=== PATIENT | female | born 1940 | race Caucasian/White ===

== ENCOUNTER → 2017-12-08 09:05 | Outpatient (REF) | payer MEDICARE, MEDICAID, SELFPAY ==
[2017-12-08 09:19] LABS: Basophils # 0.1 K/mm3 (0-0.2); Basophils % 1.2 % (0.1-2.0); Eosinophils # 0.3 K/mm3 (0.0-0.4); Eosinophils % 2.1 % (0.1-12.0); Hematocrit 32.6 % (37.0-47.0); Hemoglobin 9.9 g/dL (12.2-16.2); Lymphocytes # 1.9 K/mm3 (0.7-4.5); Lymphocytes % 15.2 K/mm3 (10-50); Mean Corpuscular HGB Conc 30.5 g/dL (31.8-35.4); Mean Corpuscular Hemoglobin 28.8 pg (27.0-31.2); Mean Corpuscular Volume 94.6 fl (81-99); Mean Platelet Volume 7.2 fl (7.4-10.4); Monocytes # 0.6 K/mm3 (0.1-1.0); Monocytes % 4.8 % (1.7-9.3); Neutrophils # 9.5 K/mm3 (1.8-7.8); Neutrophils % 76.8 % (37.0-80.0); Platelet Count 447 K/mm3 (142-424); Red Blood Count 3.45 M/mm3 (4.20-5.40); Red Cell Distribution Width 13.9 % (11.5-17.5); White Blood Count 12.4 K/mm3 (4.8-10.8)
== END ==
LOC: LAB 09:05
PROVIDERS: Visit Provider Family Medicine
DX: D64.9 Anemia, unspecified (principal); E11.65 Type 2 diabetes mellitus with hyperglycemia; E78.5 Hyperlipidemia, unspecified; I10 Essential (primary) hypertension
CPT/HCPCS: 85025

== ENCOUNTER → 2017-12-15 09:35 | Outpatient (CLI) | payer MEDICARE, MEDICAID, SELFPAY ==
--- NOTE | 2017-12-15 09:35 | CT_ITS ---
CT abdomen pelvis wo con CLINICAL INDICATION: ITS.REASON: ANEMIA ORDERING PHYSICIAN: Peter Gutiérrez MD PATIENT AGE: 77 years COMPARISON: None TECHNIQUE: Axial images obtained with sagittal and coronal reformats. All CT scans at the facility use one or more dose reduction, viz: automated exposure control; ma/kV adjustment per patient size (including targeted exams where dose is matched to indication; i.e. head); or iterative reconstruction technique. PROCEDURE: Oral Contrast: None IV Contrast: None . FINDINGS: Lower thoracic images show mild cardiomegaly with coronary artery calcifications and mild thickening of the pericardium posteriorly. The liver, spleen, adrenal glands, and pancreas have an unremarkable unenhanced CT appearance. There is mild motion artifact does obscure fine detail. There is a moderate amount of edema in the inferior aspect of the left breast. There has been prior aortic aneurysm repair with aortoiliac stent graft present. Right internal and external iliac artery stents are present. The AP dimension of the mid abdominal aorta is 3.6 cm. Iliac arteries are slightly prominent at 2.5 cm on the right and 2 cm on the left. This is dimension stents. There is a moderate amount retained colonic feces. The cecum lies in the central aspect of the pelvis as does the appendix. No evidence of appendicitis. There is diverticulosis of the descending and sigmoid colon. There is mild rectal fecal impaction. There is some minimal stranding of the pericolic fat in the left lower quadrant. This is nonspecific and could be seen with some mild diverticulitis. No renal calculi or ureteral calculi. There is a small exophytic left renal cyst laterally and inferiorly at 2 cm. Small exophytic cyst projects off the lateral aspect of the right kidney at 1 cm. Calcification is present within the right aspect the urinary bladder consistent with bladder stone at 13 mm The uterus is canted toward the left with coarse calcifications consistent with fibroid involvement measuring up to 4.5 cm. This was present on previous ultrasound of 07/28/2010. Degenerative changes thoracic and lumbar spine. IMPRESSION: 1. Constipation with diverticulosis coli and rectal fecal impaction. 2. Grade minimal stranding of the fat in the left lower quadrant adjacent to the sigmoid colon which could be due to some mild diverticulitis. This however is questionable. Please correlate with clinical findings. 3. 4 cm fibroid. 4. 13 mm bladder stone on the right 5. 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
== END ==
PROVIDERS: Family Provider Family Medicine; PCP Family Medicine; Visit Provider Family Medicine
DX: D64.9 Anemia, unspecified (principal)
CPT/HCPCS: 74176

== ENCOUNTER → 2018-01-16 10:25 | Outpatient (CLI) | payer MEDICARE, MEDICAID, SELFPAY ==
--- NOTE | 2018-01-16 10:26 | MM_ITS ---
MM Dig screening mamm BI w/CAD ORDERING PHYSICIAN : Danny Donaldson MD PATIENT AGE: 78 years GENDER: Female HISTORY. Routine screening Patient with multiple left breast resected 2004, 2009, 2013. My available records showed the first breast cancer in 2004 with resulting radiation changes left breast resulting in a diffuse extremely dense anterior breast. This diffuse density of these changes limits mammography particularly anteriorly at these large pendulous breast . COMPARISON: Multiple previous studies most recent 12-02 and 11/12/2016 bilateral mammograms. INDICATION: ITS.REASON: screening TECHNIQUE: Standard CC and MLO images were obtained. R2 CAD reviewed. FINDINGS: RIGHT BREAST:No new findings in the right. Follow-up in one year. Densely calcified stable benign nodular density seen superior right breast again noted. Otherwise generalized fatty replacement on right LEFT BREAST :Again the extensive postradiation changes are seen throughout the anterior breast with long-standing markedly diffuse thickening and increased density skin and soft tissues throughout anterior breast There appears to be a New area of ill-defined focal density at the deep left breast. Labeled Z. With slightly radiating margins. This entire area measures possibly up up to 4 cm AP. 3.6 cm height including its density from its radiating margins. . This area raises Significant concern for another recurrent breast lesion- unless there is interval surgery at left breast since October 2016... Understand this patient is difficult to position with mammography. Thus Suggest survey the left breast and this specific area with ultrasound first... And if no definitive feature on ultrasound then proceeded with spot views will be required There is also again noted to be a a long-standing elongated nodular density labeled Y was fairly stable from follow-up from the 2014, 2015 and 2016 studies. This is more difficult to visualize today but I believe is separate as seen on today's MLO view and one of the cc views it may be questionably incrementally wider measuring just over 8 mm The benign areas of calcification otherwise seen appear relatively stable and can be followed. IMPRESSION: LEFT BREAST 1. New area of regional density with suggestion of radiating irregular margins now seen fairly deep left breast just medial to mid axis.. This area is labeled Z. Entire area of density including radiating margins it may measure up to 4 cm AP X 3.6 cm height .Significant change since last year & Concerning for significant new lesion/neoplasm if unless this patient has had interval surgery in this region.. No history of such stated by technologist. However Note history of multiple cancers left breast & extensive radiation changes yielding marked increased density & thickening of the skin and soft tissues throughout the anterior breast.-Limiting mammography to the anterior breast ... Suggest ultrasound initially to survey this region of concern labeled Z.,. If no clearly definitive focus identified with ultrasound,, then any mammogram Spot views would be warranted to further evaluate this area in this difficult to position patient.. 2. The elongated nodule labeled Y appears separate & appears fairly stable 2016 but will be encountered in this same general region... This area labeled Y will likely be more discrete nodule on ultrasound (area Y may serve as a reference point ,as it appears resides more towards 6:00 left breast, & appears reside inferior & medial to the area labeled Z) RIGHT BREAST.:. Stable. No areas of concern follow-up in one year BI-RADS Category: 0 Need Additional Imaging Evaluaiton RECOMMENDED FOLLOW-UP: IMM - IMMEDIATE FOLLOW-UP RECOMMENDED Ultrasound
--- NOTE | 2018-01-16 14:19 | MM_ITS ---
MM Dig screening mamm BI w/CAD ORDERING PHYSICIAN : Danny Donaldson MD PATIENT AGE: 78 years GENDER: Female HISTORY. Routine screening Patient with multiple left breast resected 2004, 2009, 2013. My available records showed the first breast cancer in 2004 with resulting radiation changes left breast resulting in a diffuse extremely dense anterior breast. This diffuse density of these changes limits mammography particularly anteriorly at these large pendulous breast . COMPARISON: Multiple previous studies most recent 12-02 and 11/12/2016 bilateral mammograms. INDICATION: ITS.REASON: SCREENING TECHNIQUE: Standard CC and MLO images were obtained. R2 CAD reviewed. FINDINGS: RIGHT BREAST:No new findings in the right. Follow-up in one year. Densely calcified stable benign nodular density seen superior right breast again noted. Otherwise generalized fatty replacement on right LEFT BREAST :Again the extensive postradiation changes are seen throughout the anterior breast with long-standing markedly diffuse thickening and increased density skin and soft tissues throughout anterior breast There appears to be a New area of ill-defined focal density at the deep left breast. Labeled Z. With slightly radiating margins. This entire area measures possibly up up to 4 cm AP. 3.6 cm height including its density from its radiating margins. . This area raises concern for another recurrent breast lesion- unless there is interval surgery at left breast since October 2016... Understand this patient is difficult to position with mammography. Thus Suggest survey the left breast and this specific area with ultrasound first... And if no definitive feature on ultrasound then proceeded with spot views will be required There is also again noted to be a a long-standing elongated nodular density labeled Y was fairly stable from follow-up from the 2014, 2015 and 2016 studies. This is more difficult to visualize today but I believe is separate as seen on today's MLO view and one of the cc views it may be questionably incrementally wider measuring just over 8 mm The benign areas of calcification otherwise seen appear relatively stable and can be followed. Note this report was completed & finalized in the dictation system near 2 weeks ago, but now shows back up on my draft list to be re-signed. Apparently there was a problem with the order editor in the [employer] system IMPRESSION: LEFT BREAST: 1. New area of regional density with suggestion of radiating irregular margins now seen fairly deep left breast just medial to mid axis.. This area is labeled Z. Entire area of density including radiating margins it may measure up to 4 cm AP X 3.6 cm height .Significant change since last year & Concerning for significant new lesion/neoplasm if unless this patient has had interval surgery in this region.. No history of such stated by technologist. However Note history of multiple cancers left breast & extensive radiation changes yielding marked increased density & thickening of the skin and soft tissues throughout the anterior breast.-Limiting mammography to the anterior breast ... Suggest ultrasound initially to survey this region of concern labeled Z.,. If no clearly definitive focus identified with ultrasound,, then any mammogram Spot views would be warranted to further evaluate this area in this difficult to position patient.. 2. Otherwise at left breast the elongated nodule labeled Y appears separate & appears fairly stable 2016 but will be encountered in this same general region... This area labeled Y will likely be more discrete nodule on ultrasound & appears to be stable feature (area Y may serve as a reference point , it appears resides more towards 6:00 left
== END ==
PROVIDERS: Family Provider Family Medicine; PCP Family Medicine; Visit Provider Surgery
DX: Z12.31 Encounter for screening mammogram for malignant neoplasm of breast (principal)
CPT/HCPCS: 77067

== ENCOUNTER → 2018-01-27 13:02 | Outpatient (CLI) | payer MEDICARE, MEDICAID, SELFPAY ==
--- NOTE | 2018-01-27 13:05 | MM_ITS ---
US breast LT complete, MM Dig mamm DX unilat LT CAD INDICATION: Abnormal mammogram, history of left breast cancer and radiation changes ORDERING PHYSICIAN: Inocente Darling MD PATIENT AGE: 78 years COMPARISON: 01/16/2018, 11/12/2016 and 1226 and 6 TECHNIQUE: Spot compression views performed along with left breast ultrasound FINDINGS: The images are extremely limited due to patient's inability to be properly positioned. Extensive postradiation changes are once again noted in the antra aspect of the left breast with long-standing thickening of the anterior aspect of the left breast. Limited spot compression views show persistent asymmetric density in the central aspect of the left breast posteriorly. This is barely perceptible on the images and could even be due to asymmetric tissue. Benign-appearing calcifications are once again noted. Left breast ultrasound: There is diffuse skin thickening and subcutaneous edema. In the medial aspect of the left breast there is a 9 x 6 mm area of decreased echogenicity with posterior acoustical shadowing have an a suspicious appearance by ultrasound. Biopsy recommended. IMPRESSION: Asymmetric density persists on the mammogram. Ultrasound shows a suspicious hypoechoic nodule with posterior acoustical shadowing at 9 x 6 mm in the medial aspect of the left breast BI-RADS Category: 4 Suspicious Abnormality-Biopsy Considered RECOMMENDED FOLLOW-UP: BIO - BIOPSY RECOMMENDED (A letter has been sent to the patient regarding results of the study.)
== END ==
PROVIDERS: Family Provider Family Medicine; PCP Family Medicine; Visit Provider Surgery
DX: N63.20 Unspecified lump in the left breast, unspecified quadrant (principal); R92.8 Other abnormal and inconclusive findings on diagnostic imaging of breast
CPT/HCPCS: 76641; 77065

== ENCOUNTER → 2018-02-04 03:25 | Outpatient (REF) | payer MEDICARE, MEDICAID, SELFPAY ==
[2018-02-04 04:25] LABS: Microscopic, Urine URINE MICROSCOPIC (MICROSCOPIC)
[2018-02-04 04:33] LABS: Basophils % 0.2 % (0.1-2.0); Eosinophils # 0.1 K/mm3 (0.0-0.4); Eosinophils % 0.3 % (0.1-12.0); Hematocrit 33.6 % (37.0-47.0); Hemoglobin 10.9 g/dL (12.2-16.2); Lymphocytes % 5.3 K/mm3 (10-50); Mean Corpuscular HGB Conc 32.5 g/dL (31.8-35.4); Mean Corpuscular Hemoglobin 29.9 pg (27.0-31.2); Mean Corpuscular Volume 92.1 fl (81-99); Mean Platelet Volume 7.9 fl (7.4-10.4); Monocytes # 1.1 K/mm3 (0.1-1.0); Monocytes % 5.6 % (1.7-9.3); Neutrophils # 16.7 K/mm3 (1.8-7.8); Neutrophils % 88.5 % (37.0-80.0); Platelet Count 286 K/mm3 (142-424); Red Blood Count 3.65 M/mm3 (4.20-5.40); Red Cell Distribution Width 13.3 % (11.5-17.5); White Blood Count 18.8 K/mm3 (4.8-10.8)
[2018-02-04 04:35] LABS: MANUAL DIFFERENTIAL MANUAL DIFFERENTIAL (MANUAL DIFF)
[2018-02-04 04:39] LABS: Appearance,Urine CLOUDY (Clear); Bilirubin,Urine Negative (Negative); Blood, Urine 1+ (Negative); Color,Urine YELLOW (Yellow); Glucose,Urine (UA) Negative (Negative); Ketones,Urine TRACE (Negative); Leukocyte Esterase,Urine 1+ (Negative); Nitrate,Urine Negative (Negative); PH,Urine 6.5 (5.0-8.5); Protein,Urine 2+ (Negative); Specific Gravity, Urine 1.025 (1.005-1.030)
[2018-02-04 05:18] LABS: Bacteria,Urine 4+ /lpf; Squamous Epithelial Cell,Urine Occasional #/hpf (0-5)
[2018-02-04 05:24] LABS: Lymphocytes % 13 % (10-50); Monocytes % 5 % (2-9); Neutrophils % 79 % (42-76); Platelet Estimate Normal; RBC Morphology Normal; Total Cells Counted 100
[2018-02-04 07:20] LABS: Anion Gap 7.3 mEq/L (5-15); Blood Urea Nitrogen 20 mg/dL (7-18); Calcium 9.7 mg/dL (8.5-10.1); Carbon Dioxide 37 mmol/L (21.0-32.0); Chloride 95 mmol/L (98-107); Creatinine,Serum 0.57 mg/dL (0.55-1.02); Estimated Glomerular Filt Rate 103 ml/min (>60); GFR (African American) 124 ML/MIN (>60); Glucose 171 mg/dL (74-106); Potassium 4.3 mmoL/L (3.5-5.1); Sodium 135 mmol/L (136-145)
== END ==
LOC: LAB 03:25
PROVIDERS: Visit Provider Family Medicine
DX: R53.83 Other fatigue (principal); D64.9 Anemia, unspecified
CPT/HCPCS: 80048; 81001; 85007; 85025; 87086

== ENCOUNTER 2018-02-05 11:27 | Inpatient (IN) ==
--- NOTE | 2018-02-05 12:09 | Emergency Department Note ---
ED Disposition Clinical Impression: Cystitis without hematuria RLL pneumonia Qualifiers: Pneumonia type: due to unspecified organism Qualified Code(s): J18.1 - Lobar pneumonia, unspecified organism Disposition: Admitted As Inpatient Condition on Discharge: Fair Referrals: Peter Gutiérrez MD [Primary Care Provider] - Time of Disposition: 13:45 - Critical Care Critical Care Time: No Attestation: On 02/05/18, the high probability of a clinically significant, sudden or life threatening deterioration of the following system(s) required my full and direct attention, intervention and personal management. The time I documented below is in addition to time spent performing reported procedures but includes the following listed in this critical care notation. Medical Decision Making - Medical Records Medical records reviewed: Yes: I reviewed the patient's medical records. - Elvis Inquiry Pt receiving controlled substance: No Elvis was queried for this patient: No Vital Signs: 02/05/18 11:28 02/05/18 13:28 Temperature 97.6 F 98.8 F Temperature Source Oral Oral Pulse Rate [Left Brachial] 86 89 Respiratory Rate 22 22 Blood Pressure [Left Arm] 98/58 100/56 Blood Pressure Mean [Left Arm] 71 70 Blood Pressure Source [Left Arm] Automatic Cuff Automatic Cuff Blood Pressure Position [Left Arm] Supine Sitting 02 Sat by Pulse Oximetry 90 L 95 Oxygen Delivery Method Nasal Cannula Nasal Cannula Oxygen Flow Rate (LPM) 2 2 - Lab Data Lab results reviewed: Yes: I reviewed the patient's lab results. Lab Results 02/05/18 12:10: Specimen Source Rt radial, O2 % 36, ABG pH 7.35, ABG pCO2 70.8 H , ABG pO2 74.4 L, ABG HCO3 37.8 H, ABG Total CO2 39.9 H, ABG O2 Saturation 93, ABG Base Excess 12.1 H, Tom Test Acceptable 02/05/18 12:30: WBC 19.5 H, RBC 3.59 L, Hgb 10.5 L, Hct 33.1 L, MCV 92.2, MCH 29.3, MCHC 31.8, RDW 13.2, Plt Count 334, MPV 7.8, Neut % (Auto) 87.9 H, Lymph % (Auto) 6.7 L, [place] % (Auto) 5.0, Eos % (Auto) 0.1, Baso % (Auto) 0.3, Neut # ( Auto) 17.2 H, Lymph # (Auto) 1.3, [place] # (Auto) 1.0, Eos # (Auto) 0.0, Baso # ( Auto) 0.1, Total Counted 100, Neutrophils % (Manual) 85 H, Band Neutrophils % 3.0, Lymphocytes % (Manual) 5 L, Monocytes % (Manual) 7, Platelet Estimate Normal, RBC Morphology Normal 02/05/18 12:30: PT 10.8, INR 1.05 02/05/18 12:30: Sodium 126 L, Potassium 4.0, Chloride 91 L, Carbon Dioxide 37 H , Anion Gap 2.0 L, BUN 25 H, Creatinine 0.90 D, Estimated Creat Clear 50, Estimated GFR 61, Est GFR ( Amer) 73 D, Glucose 180 H, Calcium 9.8, Total Bilirubin 0.3, AST 8 L, ALT 11 L, Alkaline Phosphatase 124 H, Total Creatine Kinase 17 L, CK-MB (CK-2) 0.5, CK-MB (CK-2) Rel Index 2.9, Troponin I 0.08 H, Total Protein 7.0, Albumin 2.2 L, Globulin 4.8 H, Albumin/Globulin Ratio 0.5 L 02/05/18 12:30: Lactate 1.8 02/05/18 13:00: Urine Color Yellow, Urine Appearance Cloudy, Urine pH 6.5, Ur Specific [place] 1.025, Urine Protein 1+, Urine Glucose (UA) Negative, Urine Ketones Negative, Urine Blood 1+, Urine Nitrate Negative, Urine Bilirubin Negative, Urine Urobilinogen 1.0, Ur Leukocyte Esterase Trace, Urine RBC 3-5, Urine WBC 10-20, Ur Squamous Epith Cells 5-10, Urine Bacteria 4+ Result diagrams: 02/05/18 12:30 02/05/18 12:30 Orders (Tests/Meds): ED MEDICATIONS Generic Name Dose Route Start Last Admin Trade Name Freq PRN Reason Stop Dose Admin Piperacillin Sod/Tazobactam 100 mls @ 200 mls/hr 02/05/18 13:45 Sod 3.375 gm/ Sodium Chloride IV 02/19/18 13:44 Q8H [facility] Protocol Vancomycin HCl 1,000 mg/ 250 mls @ 125 mls/hr 02/05/18 13:35 Sodium Chloride IV 02/05/18 15:34 ONCE ONE Levofloxacin/Dextrose 500 mg in 100 mls @ 100 mls/hr 02/05/18 13:45 Levaquin 500mg/100ml Premix IV 02/19/18 13:44 Q24H [facility] Protocol ORDERS Category Date Time Status Urinalysis and Microscopic Stat Lab 02/05/18 13:22 Ordered Blood Culture Stat Micro 02/05/18 12:30 Received Urine Culture Stat Micro 02/05/18 13:00 Received EKG Request [ECG Request by /Ericka] Stat Y 02/05/18 13:31 Ordered - Radiology Data #1 Image Reviewed: Yes I reviewed the patient's radiology results, Yes I reviewed the patient's radiology image RLL pneumoonia General Adult HPI - General Chief complaint: Shortness of Breath/Dyspnea Stated complaint: SOA and poor intake Time Seen by Provider: 02/05/18 12:00 Mode of Arrival: EMS Limitations: Altered Mental Status Description of Symptoms (Recalled from ER Triage Doc. by RN): Pt's family states that her speech sounds different, slower and more stammering. Pt's has had poor intake of food over the last few days and that she had complained of SOA prior to coming in. Pt states that she feels a little SOA due to her passages. - History of Present Illness HPI narrative: Patient sent from [facility] at the request of family she complains of shortness of breath and the family states that her voice is changed over the last [address] Cueva was called and had blood work and urinalysis performed and on Tuesday she was started on antibiotic today the family felt she was more incoherent and had her brought to the emergency room for further evaluation in the emergency room her blood pressure is 98/58 she has a history of having had an abdominal aortic aneurysm repair and also repair of iliac aneurysms she has also has history of diabetes COPD and congestive heart failure she has been on nebulizers and inhalers at temp is currently 97.6 today and she is on home O2 at 2 L/min 24 7 Onset (ago): day(s) Location: chest - Related Data Home Medications Medication Instructions Recorded Confirmed Aspirin [Aspirin 81mg chewable 81 mg PO DAILY 02/05/18 02/05/18 tab] Calcium Carbonate/Vitamin D3 1 each PO BID 02/05/18 02/05/18 [Oyster Shell 250 mg + Vit D Tb] Clopidogrel Bisulfate [Plavix 75mg 75 mg PO DAILY 02/05/18 02/05/18 Tab] Digoxin 0.125 mg PO DAILY 02/05/18 02/05/18 Enalapril Maleate 2.5 mg PO DAILY 02/05/18 02/05/18 Ferrous Sulfate [Ferrous Sulfate 325 mg PO DAILY 02/05/18 02/05/18 325mg Tablet] Fluticasone Propionate [Flovent 50 mcg IH DAILY 02/05/18 02/05/18 Diskus] Furosemide [Furosemide 40MG tAB] 40 mg PO DAILY 02/05/18 02/05/18 Gabapentin [Gabapentin 100mg Cap] 100 mg PO TID 02/05/18 02/05/18 Lactulose [Lactulose 10gm/15ml 20 mg PO DAILY PRN 02/05/18 02/05/18 Oral Soln] Metformin HCl [Metformin 500mg 500 mg PO BID 02/05/18 02/05/18 Tablet] Omeprazole [Omeprazole 20mg 20 mg PO HS 02/05/18 02/05/18 Capsule] Potassium Chloride [Micro-K 10mEq 10 meq PO DAILY 02/05/18 02/05/18 cap] Pravastatin Sodium [Pravachol] 20 mg PO HS 02/05/18 02/05/18 Sennosides [Senna] 8.6 mg PO BID 02/05/18 02/05/18 Sulfamethoxazole/Trimethoprim 1 each PO BID 02/05/18 02/05/18 [Bactrim DS tablet] Tramadol HCl [Ultram Take Home 50 mg PO BID 02/05/18 02/05/18 Pack 50mg (10)] Ubidecarenone [Coenzyme Q10] 100 mg PO DAILY 02/05/18 02/05/18 predniSONE [Deltasone 1mg tablet] 1 mg PO QODHS 02/05/18 02/05/18 risperiDONE [Risperdal 1mg Tablet] 1 mg PO BID 02/05/18 02/05/18 Allergies Allergy/AdvReac Type Severity Reaction Status Date / Time NKA - NO KNOWN ALLERGIES Allergy Unknown Uncoded 06/07/17 15:21 [facility] History I have reviewed the patient's past medical history: Yes Medical History: Reports:: Diabetes Mellitus Type 2 - Social History Alcohol Intake: never ROS Obtained: Yes All systems reviewed & no additional complaints - Constitutional Constitutional: Reports system reviewed and no additional complaints, except as docu, Reports as per HPI - Cardiovascular Cardiovascular: Reports system reviewed and no additional complaints, except as docu, Reports as per HPI - Respiratory Respiratory: Yes system reviewed and no additional complaints, except as docu, Yes as per HPI Physical Exam - General General appearance: alert, in no apparent distress - Head Head exam: atraumatic - Eye Eye exam: Present: normal appearance - ENT ENT exam: Present: normal exam - Neck Neck exam: Present: normal inspection - Chest Chest inspection: Present: normal inspection - Respiratory Respiratory exam: Present: other (Patient has crackles in the left lung but not on the right) - Cardiovascular Cardiovascular exam: Present: regular rate, normal rhythm - Abdominal Exam Abdominal exam: Present: soft - Neurological Exam Neurological exam: Present: alert, oriented X3, other (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
[2018-02-05 12:49] LABS: Basophils # 0.1 K/mm3 (0-0.2); Basophils % 0.3 % (0.1-2.0); Eosinophils % 0.1 % (0.1-12.0); Hematocrit 33.1 % (37.0-47.0); Hemoglobin 10.5 g/dL (12.2-16.2); Lymphocytes # 1.3 K/mm3 (0.7-4.5); Lymphocytes % 6.7 K/mm3 (10-50); Mean Corpuscular HGB Conc 31.8 g/dL (31.8-35.4); Mean Corpuscular Hemoglobin 29.3 pg (27.0-31.2); Mean Corpuscular Volume 92.2 fl (81-99); Mean Platelet Volume 7.8 fl (7.4-10.4); Neutrophils # 17.2 K/mm3 (1.8-7.8); Neutrophils % 87.9 % (37.0-80.0); Platelet Count 334 K/mm3 (142-424); Red Blood Count 3.59 M/mm3 (4.20-5.40); Red Cell Distribution Width 13.2 % (11.5-17.5); White Blood Count 19.5 K/mm3 (4.8-10.8)
[2018-02-05 12:53] LABS: ABG Base Excess 12.1 mmol/L (-2.4-2.3); ABG HCO3 37.8 mmhg (22.0-26.0); ABG Oxygen Saturation 93 % (90-100); ABG PH 7.35 mmol/L (7.35-7.45); ABG PO2 74.4 mmhg (80-100); ABG TCO2 39.9 mmhg (23-27)
[2018-02-05 12:55] LABS: INR 1.05 (0.9-1.1); Prothrombin Time 10.8 seconds (9.4-11.8)
[2018-02-05 12:56] LABS: ABG PCO2 70.8 mmhg (35.0-45.0); Allen's Test Acceptable; Oxygen 36 %
[2018-02-05 13:05] LABS: Lymphocytes % 5 % (10-50); Monocytes % 7 % (2-9); Neutrophils % 85 % (42-76); RBC Morphology Normal; Total Cells Counted 100
[2018-02-05 13:06] LABS: Microscopic, Urine URINE MICROSCOPIC (MICROSCOPIC)
[2018-02-05 13:08] LABS: Appearance,Urine CLOUDY (Clear); Bilirubin,Urine Negative (Negative); Blood, Urine 1+ (Negative); Color,Urine YELLOW (Yellow); Glucose,Urine (UA) Negative (Negative); Ketones,Urine Negative (Negative); Leukocyte Esterase,Urine TRACE (Negative); PH,Urine 6.5 (5.0-8.5); Protein,Urine 1+ (Negative); Specific Gravity, Urine 1.025 (1.005-1.030)
[2018-02-05 13:15] LABS: Albumin Level 2.2 gm/dL (3.4-5.0); Albumin/Globulin Ratio 0.5 (1.1-1.8); Bilirubin,Total 0.3 mg/dL (0.2-1.0); Calcium 9.8 mg/dL (8.5-10.1); Globulin 4.8 gm/dl (1.3-3.2)
[2018-02-05 13:18] LABS: Bacteria,Urine 4+ /lpf
--- NOTE | 2018-02-05 14:40 | Pharmacy Consult Notes ---
[facility] Pharmacy VTE Monitoring - Patient Demographics Admission date: 02/05/18 Report Date: 02/05/18 Time: 14:40 Allergies/Adverse Reactions: Patient Allergies No Known Allergies Allergy (Unverified 02/05/18 13:57) Height: 1.68 m Weight: 68.096 kg Patient Problems: Current Active Problems RLL pneumonia (Acute) Cystitis without hematuria (Acute) - VTE Risk Labs: VTE Related Lab Results Hgb 10.5 g/dL (12.2-16.2) L 02/05/18 12:30 Hct 33.1 % (37.0-47.0) L 02/05/18 12:30 Plt Count 334 K/mm3 (142-424) 02/05/18 12:30 PT 10.8 seconds (9.4-11.8) 02/05/18 12:30 INR 1.05 (0.9-1.1) 02/05/18 12:30 BUN 25 mg/dL (7-18) H 02/05/18 12:30 Creatinine 0.90 mg/dL (0.55-1.02) D 02/05/18 12:30 Estimated Creat Clear 50 mL/min (0-300) 02/05/18 12:30 - Prophylaxis Types of VTE Prophylaxis: TEDS Knee High (SAM HOSE ORDER PLACED)
[2018-02-05 15:34] LABS: ABG Base Excess 9.1 mmol/L (-2.4-2.3); ABG HCO3 34.4 mmhg (22.0-26.0); ABG Oxygen Saturation 91 % (90-100); ABG PH 7.37 mmol/L (7.35-7.45); ABG PO2 63.3 mmhg (80-100); ABG TCO2 36.2 mmhg (23-27)
[2018-02-05 15:35] LABS: Allen's Test Acceptable; Oxygen 36 %
[2018-02-05 15:39] LABS: ABG PCO2 60.4 mmhg (35.0-45.0)
--- NOTE | 2018-02-06 08:16 | History & Physical Report ---
*Admission Date: 02/05/18 *Chief complaint: Shortness of breath *History of present illness: Ms. Leger is a 77-year-old female who is a resident of [facility] who presented to [facility] with noted shortness of breath and lethargy. Patient states that she slept for 3 days and did not eat or drink much during the study of time. She states that she has been has been sick for about 4-5 days. She denies cough, chest pain and fever. Prior to admission she had been started on an antibiotic and CBC and BMP were obtained with unknown results. When family was visiting with her yesterday they requested that she brought to the emergency room for evaluation. Patient has an extensive medical history to include diabetes mellitus type 2, breast cancer with partial left mastectomy, anemia, agoraphobia, COPD, aortic and bilateral iliac artery aneurysms with repair, and suspected non-small cell lung cancer of the left upper lobe with treatment, and CAD with stenting of the left anterior descending. With evaluation in the emergency room she was felt to have a right pneumonia with elevated white blood cell count and was admitted. She was started on Vapotherm with O2 percent increased to 40. Patient states she has not been coughing and does not want to cough. She does not want breathing treatments. She states this puts fluid in her lungs and makes it so she cannot breathe. She does feel better this a.m. denies chest pain but has shortness of breath with any activity. She has been eating a little but drinks fluids well. Patient was noted to be in atrial fibrillation in the ER and has remained as such on the monitor. She has a controlled ventricular response. She has been started on IV Levaquin and piperacillin [facility] History Medical History: Reports:: Aneurysm, Atherosclerotic Heart Disease, Atrial Fibrillation, Cancer, Congestive Heart Failure, Chronic Obstructive Pulmonary Disease (COPD), Coronary Artery Disease, Depression, Diabetes Mellitus Type 2, Gastrointestinal Bleed, Home Oxygen, Hyperlipidemia, Hypertension, Lung Disease , Peripheral Artery Disease Other Medical History: Reports: Anemia, Arthritis, Chemotherapy Laterality Cases: Left: Mastectomy (Partial) Other Surgeries: Yes: Cancer Surgery (left lung), Cardiac Catheterization, Coronary Stent Comment: Left partial mastectomy 12/22/2016; D&C; endovascular repair of AAA and bilateral iliac aneurysms 06/08/2017 - *Social History Smoking Status: Former smoker Alcohol Intake: never Occupational Status: disabled Housing: half-way - Psychiatric History Expresses thoughts of harming self/others: None Suicide Plan Description: No Plan Pschychiatric History:: Reports:: Anxiety, Depression *Family Hx:: Cancer Review of Systems - Constitutional Reports daytime sleepiness, Reports weakness, Denies anorexia, Denies chills - ENT Reports nasal congestion - *Cardiovascular Reports shortness of breath, Denies chest pain - *Respiratory Reports shortness of breath, Denies chest congestion, Denies cough - *Gastrointestinal Reports constipation, Reports incontinent of stools, Denies abdominal pain, Denies nausea, Denies vomiting - *Genitourinary Reports urinary incontinence - *Musculoskeletal Reports limited joint movement, Reports muscle weakness Comments: Has not walked since her aneurysm repair. She has had difficulty with moving her legs which is worse on the right. She has not been out of bed and months. - *Neurologic Reports abnormal speech, Reports weakness - Psychiatric Reports anxiety, Reports depression Meds Home Medications Medication Instructions Recorded Confirmed Type Aspirin [Aspirin 81mg chewable 81 mg PO DAILY 02/05/18 02/05/18 History tab] Calcium Carbonate/Vitamin D3 1 each PO BID 02/05/18 02/05/18 History [Oyster Shell 250 mg + Vit D Tb] Clopidogrel Bisulfate [Plavix 75mg 75 mg PO DAILY 02/05/18 02/05/18 History Tab] Digoxin 0.125 mg PO DAILY 02/05/18 02/05/18 History Enalapril Maleate 2.5 mg PO DAILY 02/05/18 02/05/18 History Ferrous Sulfate [Ferrous Sulfate 325 mg PO DAILY 02/05/18 02/05/18 History 325mg Tablet] Furosemide [Furosemide 40MG tAB] 40 mg PO DAILY 02/05/18 02/05/18 History Gabapentin [Gabapentin 100mg Cap] 100 mg PO TID 02/05/18 02/05/18 History Gluc Helms/MSM/Magnesium/Vit C 1 each PO DAILY 02/05/18 02/05/18 History [Glucosamine Complex-MSM Cap] Lactulose [Lactulose 10gm/15ml 20 gm PO DAILYP PRN 02/05/18 02/05/18 History Oral Soln] Metformin HCl [Metformin 500mg 500 mg PO BID 02/05/18 02/05/18 History Tablet] Multivit,Iron,Min 5/Folic Acid 1 each PO DAILY 02/05/18 02/05/18 History [Strovite Forte Caplet] Omeprazole [Omeprazole 20mg 20 mg PO HS 02/05/18 02/05/18 History Capsule] Potassium Chloride [Micro-K 10mEq 10 meq PO DAILY 02/05/18 02/05/18 History cap] Pravastatin Sodium [Pravachol] 20 mg PO HS 02/05/18 02/05/18 History Sennosides [Senna] 8.6 mg PO BID 02/05/18 02/05/18 History Sodium Chloride [Saline Nasal 1 spray NS TID 02/05/18 02/05/18 History [place]] Sulfamethoxazole/Trimethoprim 1 each PO BID 02/05/18 02/05/18 History [Bactrim DS tablet] Tramadol HCl [Ultram] 50 mg PO BID 02/05/18 02/05/18 History Ubidecarenone [Coenzyme Q10] 100 mg PO DAILY 02/05/18 02/05/18 History predniSONE [Deltasone 1mg tablet] 1 mg PO QODHS 02/05/18 02/05/18 History risperiDONE [Risperdal 1mg Tablet] 1 mg PO BID 02/05/18 02/05/18 History Anastrozole 1 mg PO DAILY 02/06/18 02/06/18 History Fluticasone Propionate [Flonase 1 spr NS BID 02/06/18 02/06/18 History 50mcg nasal spray 16gm] Allergies Allergy/AdvReac Type Severity Reaction Status Date / Time No Known Allergies Allergy Unverified 02/05/18 13:57 Exam Vital signs and Labs for Last 24 Hours: Temp Pulse Resp BP Pulse Ox 98.5 F 100 H 22 112/56 95 02/06/18 04:00 02/06/18 04:48 02/06/18 04:00 02/06/18 04:00 02/06/18 06:20 Laboratory Results - last 24 hr 02/05/18 12:10: Specimen Source Rt radial, O2 % 36, ABG pH 7.35, ABG pCO2 70.8 H , ABG pO2 74.4 L, ABG HCO3 37.8 H, ABG Total CO2 39.9 H, ABG O2 Saturation 93, ABG Base Excess 12.1 H, Tom Test Acceptable 02/05/18 12:30: WBC 19.5 H, RBC 3.59 L, Hgb 10.5 L, Hct 33.1 L, MCV 92.2, MCH 29.3, MCHC 31.8, RDW 13.2, Plt Count 334, MPV 7.8, Neut % (Auto) 87.9 H, Lymph % (Auto) 6.7 L, [place] % (Auto) 5.0, Eos % (Auto) 0.1, Baso % (Auto) 0.3, Neut # ( Auto) 17.2 H, Lymph # (Auto) 1.3, [place] # (Auto) 1.0, Eos # (Auto) 0.0, Baso # ( Auto) 0.1, Total Counted 100, Neutrophils % (Manual) 85 H, Band Neutrophils % 3.0, Lymphocytes % (Manual) 5 L, Monocytes % (Manual) 7, Platelet Estimate Normal, RBC Morphology Normal 02/05/18 12:30: PT 10.8, INR 1.05 02/05/18 12:30: Sodium 126 L, Potassium 4.0, Chloride 91 L, Carbon Dioxide 37 H , Anion Gap 2.0 L, BUN 25 H, Creatinine 0.90 D, Estimated Creat Clear 50, Estimated GFR 61, Est GFR ( Amer) 73 D, Glucose 180 H, Calcium 9.8, Total Bilirubin 0.3, AST 8 L, ALT 11 L, Alkaline Phosphatase 124 H, Total Creatine Kinase 17 L, CK-MB (CK-2) 0.5, CK-MB (CK-2) Rel Index 2.9, Troponin I 0.08 H, Total Protein 7.0, Albumin 2.2 L, Globulin 4.8 H, Albumin/Globulin Ratio 0.5 L 02/05/18 12:30: Lactate 1.8 02/05/18 13:00: Urine Color Yellow, Urine Appearance Cloudy, Urine pH 6.5, Ur Specific [place] 1.025, Urine Protein 1+, Urine Glucose (UA) Negative, Urine Ketones Negative, Urine Blood 1+, Urine Nitrate Negative, Urine Bilirubin Negative, Urine Urobilinogen 1.0, Ur Leukocyte Esterase Trace, Urine RBC 3-5, Urine WBC 10-20, Ur Squamous Epith Cells 5-10, Urine Bacteria 4+ 02/05/18 15:23: Specimen Source Rt radial, O2 % 36, ABG pH 7.37, ABG pCO2 60.4 H , ABG pO2 63.3 L, ABG HCO3 34.4 H, ABG Total CO2 36.2 H, ABG O2 Saturation 91, ABG Base Excess 9.1 H, Tom Test Acceptable I & O for Last 24 hours: Intake & Output 02/03/18 02/04/18 02/05/18 02/06/18 11:59 11:59 11:59 11:59 Intake Total 410 / 410 Balance 410 / 410 Weight 148 lb 4.546 oz 150 lb 1 oz Radiology Reports for the Last 24 Hours: 02/05/2018 chest x-ray IMPRESSION... Patchy infiltrate throughout throughout the right lung- most evident periphery of right midlung, and at right lung base. . Suspect pneumonia infiltrates right lung.. Possible minimal vascular congestion as well Suggest correlation with BNP - Constitutional no acute distress, cooperative - *Routine HEENT Exam Head: Present: normocephalic, atraumatic Eye: Present: PERRL ENT: Present: mucous membranes moist, nares patent - *Routine Neck Exam Present: supple, full ROM. Absent: carotid bruit, lymphadenopathy, thyromegaly - *Routine Respiratory Exam Present: decreased breath sounds (On the left; crackles in right base posteriorly) - *Routine Cardiovascular Exam Comments: Monitor and EKG show atrial fib with a controlled ventricular response. - *Routine Abdominal Exam Present: soft, normoactive bowel sounds. Absent: tenderness, distended - *Routine Extremities Exam Present: edema (Around ankles). Absent: calf tenderness Comments: around bilateral ankles. Has SAM hose on - *Routine Neurological Exam Present: alert, oriented X3. Absent: tremors Slow speech - Routine Psychiatric Exam Present: cooperative, anxious Assessment and Plan (1) RLL pneumonia Current visit: Yes Status: Acute Qualifiers: Pneumonia type: due to unspecified organism Qualified Code(s): J18.1 - Lobar pneumonia, unspecified organism Category: Medical Code(s): J18.1 - Lobar pneumonia, unspecified organism (2) Breast cancer, left Current visit: Yes Status: Chronic Category: Medical Code(s): C50.912 - Malignant neoplasm of unspecified site of left female breast (3) Coronary artery disease Current visit: Yes Status: Chronic Category: Medical Code(s): I25.10 - Atherosclerotic heart disease of [place] coronary artery without angina pectoris (4) Cancer of left lung Current visit: Yes Status: Chronic Category: Medical Code(s): C34.92 - Malignant neoplasm of unspecified part of left bronchus or lung (5) Anemia Current visit: Yes Status: Chronic Category: Medical Code(s): D64.9 - Anemia, unspecified (6) Hyponatremia Current visit: Yes Status: Acute Category: Medical Code(s): E87.1 - Hypo- osmolality and hyponatremia (7) Atrial fibrillation, new onset Current visit: Yes Status: Chronic Category: Medical Code(s): I48.91 - Unspecified atrial fibrillation (8) Anxiety Current visit: Yes Status: Chronic Category: Medical Code(s): F41.9 - Anxiety disorder, unspecified (9) Diabetes mellitus, type 2 Current visit: Yes Status: Chronic Category: Medical Code(s): E11.9 - Type 2 diabetes mellitus without complications - Assessment and plan all Dx Assessment and Plan for all problems:: Repeat EKG and labs this morning. Will also obtain a CT of the chest. We will continue with antibiotic therapy. Home meds have been ordered.
[2018-02-06 08:39] LABS: Basophils # 0.1 K/mm3 (0-0.2); Basophils % 0.3 % (0.1-2.0); Eosinophils % 0.2 % (0.1-12.0); Hematocrit 34.1 % (37.0-47.0); Hemoglobin 10.8 g/dL (12.2-16.2); Lymphocytes # 0.9 K/mm3 (0.7-4.5); Lymphocytes % 4.9 K/mm3 (10-50); Mean Corpuscular HGB Conc 31.7 g/dL (31.8-35.4); Mean Corpuscular Hemoglobin 29.2 pg (27.0-31.2); Mean Corpuscular Volume 92.3 fl (81-99); Mean Platelet Volume 7.5 fl (7.4-10.4); Monocytes # 0.7 K/mm3 (0.1-1.0); Monocytes % 3.9 % (1.7-9.3); Neutrophils # 16.1 K/mm3 (1.8-7.8); Neutrophils % 90.6 % (37.0-80.0); Platelet Count 334 K/mm3 (142-424); Red Cell Distribution Width 13.1 % (11.5-17.5); White Blood Count 17.8 K/mm3 (4.8-10.8)
[2018-02-06 08:46] LABS: Potassium 4.4 mmoL/L (3.5-5.1)
[2018-02-06 08:47] LABS: Anion Gap 1.6 mEq/L (5-15); Phosphorous 2.9 mg/dL (2.4-4.9)
--- NOTE | 2018-02-06 08:53 | Pharmacy Consult Notes ---
- Pharmacy Consult Date: 02/06/18 Time: 08:51 Referring provider: DR. TAN Reason for Consult:: VANCOMYCIN DOSING Allergies and ADEs:: Allergies Allergy/AdvReac Type Severity Reaction Status Date / Time No Known Allergies Allergy Unverified 02/05/18 13:57 Home Medications:: Home Medications Medication Instructions Recorded Confirmed Type Aspirin [Aspirin 81mg chewable 81 mg PO DAILY 02/05/18 02/05/18 History tab] Calcium Carbonate/Vitamin D3 1 each PO BID 02/05/18 02/05/18 History [Oyster Shell 250 mg + Vit D Tb] Clopidogrel Bisulfate [Plavix 75mg 75 mg PO DAILY 02/05/18 02/05/18 History Tab] Digoxin 0.125 mg PO DAILY 02/05/18 02/05/18 History Enalapril Maleate 2.5 mg PO DAILY 02/05/18 02/05/18 History Ferrous Sulfate [Ferrous Sulfate 325 mg PO DAILY 02/05/18 02/05/18 History 325mg Tablet] Furosemide [Furosemide 40MG tAB] 40 mg PO DAILY 02/05/18 02/05/18 History Gabapentin [Gabapentin 100mg Cap] 100 mg PO TID 02/05/18 02/05/18 History Gluc Helms/MSM/Magnesium/Vit C 1 each PO DAILY 02/05/18 02/05/18 History [Glucosamine Complex-MSM Cap] Lactulose [Lactulose 10gm/15ml 20 gm PO DAILYP PRN 02/05/18 02/05/18 History Oral Soln] Metformin HCl [Metformin 500mg 500 mg PO BID 02/05/18 02/05/18 History Tablet] Multivit,Iron,Min 5/Folic Acid 1 each PO DAILY 02/05/18 02/05/18 History [Strovite Forte Caplet] Omeprazole [Omeprazole 20mg 20 mg PO HS 02/05/18 02/05/18 History Capsule] Potassium Chloride [Micro-K 10mEq 10 meq PO DAILY 02/05/18 02/05/18 History cap] Pravastatin Sodium [Pravachol] 20 mg PO HS 02/05/18 02/05/18 History Sennosides [Senna] 8.6 mg PO BID 02/05/18 02/05/18 History Sodium Chloride [Saline Nasal 1 spray NS TID 02/05/18 02/05/18 History [place]] Sulfamethoxazole/Trimethoprim 1 each PO BID 02/05/18 02/05/18 History [Bactrim DS tablet] Tramadol HCl [Ultram] 50 mg PO BID 02/05/18 02/05/18 History Ubidecarenone [Coenzyme Q10] 100 mg PO DAILY 02/05/18 02/05/18 History predniSONE [Deltasone 1mg tablet] 1 mg PO QODHS 02/05/18 02/05/18 History risperiDONE [Risperdal 1mg Tablet] 1 mg PO BID 02/05/18 02/05/18 History Fluticasone Propionate [Flonase 1 spr NS BID 02/06/18 02/06/18 History 50mcg nasal spray 16gm] Height: 1.68 m Weight: 68.067 kg Laboratory Results:: Laboratory Results - last 24 hr 02/05/18 12:10: Specimen Source Rt radial, O2 % 36, ABG pH 7.35, ABG pCO2 70.8 H , ABG pO2 74.4 L, ABG HCO3 37.8 H, ABG Total CO2 39.9 H, ABG O2 Saturation 93, ABG Base Excess 12.1 H, Tom Test Acceptable 02/05/18 12:30: WBC 19.5 H, RBC 3.59 L, Hgb 10.5 L, Hct 33.1 L, MCV 92.2, MCH 29.3, MCHC 31.8, RDW 13.2, Plt Count 334, MPV 7.8, Neut % (Auto) 87.9 H, Lymph % (Auto) 6.7 L, [place] % (Auto) 5.0, Eos % (Auto) 0.1, Baso % (Auto) 0.3, Neut # ( Auto) 17.2 H, Lymph # (Auto) 1.3, [place] # (Auto) 1.0, Eos # (Auto) 0.0, Baso # ( Auto) 0.1, Total Counted 100, Neutrophils % (Manual) 85 H, Band Neutrophils % 3.0, Lymphocytes % (Manual) 5 L, Monocytes % (Manual) 7, Platelet Estimate Normal, RBC Morphology Normal 02/05/18 12:30: PT 10.8, INR 1.05 02/05/18 12:30: Sodium 126 L, Potassium 4.0, Chloride 91 L, Carbon Dioxide 37 H , Anion Gap 2.0 L, BUN 25 H, Creatinine 0.90 D, Estimated Creat Clear 50, Estimated GFR 61, Est GFR ( Amer) 73 D, Glucose 180 H, Calcium 9.8, Total Bilirubin 0.3, AST 8 L, ALT 11 L, Alkaline Phosphatase 124 H, Total Creatine Kinase 17 L, CK-MB (CK-2) 0.5, CK-MB (CK-2) Rel Index 2.9, Troponin I 0.08 H, Total Protein 7.0, Albumin 2.2 L, Globulin 4.8 H, Albumin/Globulin Ratio 0.5 L 02/05/18 12:30: Lactate 1.8 02/05/18 13:00: Urine Color Yellow, Urine Appearance Cloudy, Urine pH 6.5, Ur Specific [place] 1.025, Urine Protein 1+, Urine Glucose (UA) Negative, Urine Ketones Negative, Urine Blood 1+, Urine Nitrate Negative, Urine Bilirubin Negative, Urine Urobilinogen 1.0, Ur Leukocyte Esterase Trace, Urine RBC 3-5, Urine WBC 10-20, Ur Squamous Epith Cells 5-10, Urine Bacteria 4+ 02/05/18 15:23: Specimen Source Rt radial, O2 % 36, ABG pH 7.37, ABG pCO2 60.4 H , ABG pO2 63.3 L, ABG HCO3 34.4 H, ABG Total CO2 36.2 H, ABG O2 Saturation 91, ABG Base Excess 9.1 H, Tom Test Acceptable 02/06/18 07:40: WBC 17.8 H, RBC 3.70 L, Hgb 10.8 L, Hct 34.1 L, MCV 92.3, MCH 29.2, MCHC 31.7 L, RDW 13.1, Plt Count 334, MPV 7.5, Neut % (Auto) 90.6 H, Lymph % (Auto) 4.9 L, [place] % (Auto) 3.9, Eos % (Auto) 0.2, Baso % (Auto) 0.3, Neut # (Auto) 16.1 H, Lymph # (Auto) 0.9, [place] # (Auto) 0.7, Eos # (Auto) 0.0, Baso # (Auto) 0.1 02/06/18 07:40: Sodium 131 L, Potassium 4.4, Chloride 92 L, Carbon Dioxide 37 H , Anion Gap 1.6 L, BUN 22 H, Creatinine 0.69 D, Estimated Creat Clear 51, Estimated GFR 82, Est GFR ( Amer) 100 D, Glucose 125 H D, Calcium 10.0, Phosphorus 2.9, Magnesium 1.3 L Medical History: Reports:: Aneurysm, Anxiety, Atherosclerotic Heart Disease, Atrial Fibrillation, Cancer, Congestive Heart Failure, Chronic Obstructive Pulmonary Disease (COPD), Coronary Artery Disease, Depression, Diabetes Mellitus Type 2, Gastrointestinal Bleed, Home Oxygen, Hyperlipidemia, Hypertension, Lung Disease, Peripheral Artery Disease Assessment and Plan (1) Breast cancer, left Current visit: Yes Status: Acute Category: Medical Code(s): C50.912 - Malignant neoplasm of unspecified site of left female breast (2) Coronary artery disease Current visit: Yes Status: Acute Category: Medical Code(s): I25.10 - Atherosclerotic heart disease of [place] coronary artery without angina pectoris (3) Cancer of left lung Current visit: Yes Status: Acute Category: Medical Code(s): C34.92 - Malignant neoplasm of unspecified part of left bronchus or lung (4) Anemia Current visit: Yes Status: Acute Category: Medical Code(s): D64.9 - Anemia , unspecified (5) RLL pneumonia Current visit: Yes Status: Acute Qualifiers: Pneumonia type: due to unspecified organism Qualified Code(s): J18.1 - Lobar pneumonia, unspecified organism Category: Medical Code(s): J18.1 - Lobar pneumonia, unspecified organism (6) Hyponatremia Current visit: Yes Status: Acute Category: Medical Code(s): E87.1 - Hypo- osmolality and hyponatremia (7) Atrial fibrillation, new onset Current visit: Yes Status: Acute Category: Medical Code(s): I48.91 - Unspecified atrial fibrillation (8) Anxiety Current visit: Yes Status: Acute Category: Medical Code(s): F41.9 - Anxiety disorder, unspecified - Assessment and plan all Dx Assessment and Plan for all problems:: BASED ON PATIET'S FACTORS, RECOMMEND STARTING WITH VANCOMYCIN 1000 MG Q24H AT THIS TIME. PHARMACY WILL FOLLOW DAILY AND ADJUST APPROPRIATE. EMMA TRAORE, REINAD
[2018-02-06 09:06] LABS: Lymphocytes % 9 % (10-50); Monocytes % 2 % (2-9); Neutrophils % 89 % (42-76); Total Cells Counted 100
[2018-02-06 09:09] LABS: RBC Morphology Normal
--- NOTE | 2018-02-07 07:38 | Progress Note ---
Internal Medicine - PN: Subj *Date: 02/07/18 *Time: 07:35 Interval history: Patient states that she slept well. She denies chest pain. She is short of breath at times. She thought she would try not wearing her oxygen for a while and taking deep breaths which she said helped. She is coughing a little and is nonproductive. She thinks she is drinking fluids well but is eating little. Bowels did move yesterday. She is voiding and continues to be incontinent. Discussed again with patient aerosol treatments. Patient states treatments will fill her lungs with fluid and she will not be able to breathe. They will also make her cough which she cannot tolerate. Urine culture is negative in 24 hours. Blood culture results are pending. Her respiratory: Note patient remains on Vapotherm. FiO2 was increased to 45% with O2 sats decreased to 88%. FiO2 currently at 40% with 94% sat Exam Vital signs and Labs for Last 24 Hours: Temp Pulse Resp BP Pulse Ox 98.2 F 71 16 116/64 96 02/07/18 04:00 02/07/18 04:00 02/07/18 04:00 02/07/18 04:00 02/07/18 04:00 Laboratory Results - last 24 hr 02/06/18 07:40: WBC 17.8 H, RBC 3.70 L, Hgb 10.8 L, Hct 34.1 L, MCV 92.3, MCH 29.2, MCHC 31.7 L, RDW 13.1, Plt Count 334, MPV 7.5, Neut % (Auto) 90.6 H, Lymph % (Auto) 4.9 L, [place] % (Auto) 3.9, Eos % (Auto) 0.2, Baso % (Auto) 0.3, Neut # (Auto) 16.1 H, Lymph # (Auto) 0.9, [place] # (Auto) 0.7, Eos # (Auto) 0.0, Baso # (Auto) 0.1, Total Counted 100, Neutrophils % (Manual) 89 H, Lymphocytes % (Manual) 9 L, Monocytes % (Manual) 2, Platelet Estimate Normal, RBC Morphology Normal 02/06/18 07:40: Sodium 131 L, Potassium 4.4, Chloride 92 L, Carbon Dioxide 37 H, Anion Gap 1.6 L, BUN 22 H, Creatinine 0.69 D, Estimated Creat Clear 51, Estimated GFR 82, Est GFR ( Amer) 100 D, Glucose 125 H D, Calcium 10.0, Phosphorus 2.9, Magnesium 1.3 L 02/06/18 07:40: Troponin I < 0.02 02/06/18 07:40: B-Natriuretic Peptide 313 H I & O for Last 24 hours: Intake & Output 02/04/18 02/05/18 02/06/18 02/07/18 11:59 11:59 11:59 11:59 Intake Total 770 / 770 920 / 920 Balance 770 / 770 920 / 920 Weight 148 lb 4.546 oz 150 lb 1 oz 150 lb 4 oz Microbiology Reports for the Last 24 Hours: Microbiology 02/05/18 13:00 Urine,Catheterized Urine Culture - Preliminary Radiology Reports for the Last 24 Hours: 02/06/2018 CT of the chest Large amount stool is seen in the colon IMPRESSION. 1. Bilateral pneumonic infiltrates Right lung: . right upper lobe Infiltrate right midlung- most evident just above the right major fissure . Right lower lobe infiltrate right lung base -posterior sulcus & CP angle region. Left lung. Minimal SHIN infiltrate just above the major fissure at left midlung. Also minimal infiltrate at the posterior left lower lobe towards posterior sulcus 2. Background of Diffuse interstitial infiltrate with suspect for underlying vascular congestion, mild CHF. Minimal pleural fluid most evident at posterior sulcus on right and outlines the fissures bilaterally 3. Diffuse bronchial thickening which may reflect inflammatory changes, and possibly the vascular congestion as well. . 4..... Prominent cardiomegaly with small pericardial effusion posterior aspect of heart. Minimal Fluid Extending seen extending superiorly about pericardial reflections. Prominent coronary artery calcification also noted. 5. Atherosclerotic disease described above most evident and pronounced at the upper abdominal aorta. - Constitutional no acute distress Comments: Awakened for assessment. Oxygen cannula was her upper around her eyes. When awakened she places the oxygen back in her nose. She states that she thought this would help her to breathe better and stated that it worked. - *Routine Respiratory Exam Present: accessory muscle use Comments: Patient has crackles bilaterally anteriorly. Better breath sounds posteriorly. Poor deep inspiration effort. Respiratory rate is 20-30. - *Routine Cardiovascular Exam Present: irregular rhythm - *Routine Abdominal Exam Present: soft, normoactive bowel sounds. Absent: tenderness - *Routine Extremities Exam Comments: SAM gallo on - *Routine Neurological Exam Present: alert, oriented X3 - Routine Psychiatric Exam Comments: Seems less anxious today. Assessment and Plan (1) RLL pneumonia Current visit: Yes Status: Acute Qualifiers: Pneumonia type: due to unspecified organism Qualified Code(s): J18.1 - Lobar pneumonia, unspecified organism Category: Medical Code(s): J18.1 - Lobar pneumonia, unspecified organism (2) Breast cancer, left Current visit: Yes Status: Chronic Category: Medical Code(s): C50.912 - Malignant neoplasm of unspecified site of left female breast (3) Coronary artery disease Current visit: Yes Status: Chronic Category: Medical Code(s): I25.10 - Atherosclerotic heart disease of [place] coronary artery without angina pectoris (4) Cancer of left lung Current visit: Yes Status: Chronic Category: Medical Code(s): C34.92 - Malignant neoplasm of unspecified part of left bronchus or lung (5) Anemia Current visit: Yes Status: Chronic Category: Medical Code(s): D64.9 - Anemia, unspecified (6) Hyponatremia Current visit: Yes Status: Acute Category: Medical Code(s): E87.1 - Hypo- osmolality and hyponatremia (7) Atrial fibrillation, new onset Current visit: Yes Status: Chronic Category: Medical Code(s): I48.91 - Unspecified atrial fibrillation (8) Anxiety Current visit: Yes Status: Chronic Category: Medical Code(s): F41.9 - Anxiety disorder, unspecified (9) Diabetes mellitus, type 2 Current visit: Yes Status: Chronic Category: Medical Code(s): E11.9 - Type 2 diabetes mellitus without complications - Assessment and plan all Dx Assessment and Plan for all problems:: Continue with triple antibiotic coverage with Levaquin, piperacillin, and vancomycin. Continue with Vapotherm. Repeat labs in a.m.
[2018-02-07 09:24] LABS: Basophils # 0.1 K/mm3 (0-0.2); Basophils % 0.6 % (0.1-2.0); Eosinophils # 0.1 K/mm3 (0.0-0.4); Eosinophils % 0.6 % (0.1-12.0); Hematocrit 35.2 % (37.0-47.0); Lymphocytes # 1.1 K/mm3 (0.7-4.5); Lymphocytes % 9.1 K/mm3 (10-50); Mean Corpuscular HGB Conc 31.2 g/dL (31.8-35.4); Mean Corpuscular Hemoglobin 28.7 pg (27.0-31.2); Mean Corpuscular Volume 91.9 fl (81-99); Mean Platelet Volume 8.4 fl (7.4-10.4); Monocytes # 0.5 K/mm3 (0.1-1.0); Monocytes % 4.1 % (1.7-9.3); Neutrophils # 10.5 K/mm3 (1.8-7.8); Neutrophils % 85.5 % (37.0-80.0); Platelet Count 330 K/mm3 (142-424); Red Blood Count 3.83 M/mm3 (4.20-5.40); Red Cell Distribution Width 13.1 % (11.5-17.5); White Blood Count 12.3 K/mm3 (4.8-10.8)
[2018-02-07 09:32] LABS: Calcium 10.1 mg/dL (8.5-10.1)
[2018-02-07 12:50] LABS: Lymphocytes % 13 % (10-50); Monocytes % 6 % (2-9); Neutrophils % 81 % (42-76); Total Cells Counted 100
[2018-02-07 12:51] LABS: RBC Morphology Normal
--- NOTE | 2018-02-07 16:23 | Pharmacy Consult Notes ---
- Pharmacy Consult Date: 02/07/18 Time: 16:21 Referring provider: DR. TAN Reason for Consult:: VANCOMYCIN LEVEL Allergies and ADEs:: Allergies Allergy/AdvReac Type Severity Reaction Status Date / Time No Known Allergies Allergy Unverified 02/05/18 13:57 Home Medications:: Home Medications Medication Instructions Recorded Confirmed Type Aspirin [Aspirin 81mg chewable 81 mg PO DAILY 02/05/18 02/05/18 History tab] Calcium Carbonate/Vitamin D3 1 each PO BID 02/05/18 02/05/18 History [[place] 250 mg + Vit D Tb] Clopidogrel Bisulfate [Plavix 75mg 75 mg PO DAILY 02/05/18 02/05/18 History Tab] Digoxin 0.125 mg PO DAILY 02/05/18 02/05/18 History Enalapril Maleate 2.5 mg PO DAILY 02/05/18 02/05/18 History Ferrous Sulfate [Ferrous Sulfate 325 mg PO DAILY 02/05/18 02/05/18 History 325mg Tablet] Furosemide [Furosemide 40MG tAB] 40 mg PO DAILY 02/05/18 02/05/18 History Gabapentin [Gabapentin 100mg Cap] 100 mg PO TID 02/05/18 02/05/18 History Gluc [place]/MSM/Magnesium/Vit C 1 each PO DAILY 02/05/18 02/05/18 History [Glucosamine Complex-MSM Cap] Lactulose [Lactulose 10gm/15ml 20 gm PO DAILYP PRN 02/05/18 02/05/18 History Oral Soln] Metformin HCl [Metformin 500mg 500 mg PO BID 02/05/18 02/05/18 History Tablet] Multivit,Iron,Min 5/Folic Acid 1 each PO DAILY 02/05/18 02/05/18 History [Strovite Forte Caplet] Omeprazole [Omeprazole 20mg 20 mg PO HS 02/05/18 02/05/18 History Capsule] Potassium Chloride [Micro-K 10mEq 10 meq PO DAILY 02/05/18 02/05/18 History cap] Pravastatin Sodium [Pravachol] 20 mg PO HS 02/05/18 02/05/18 History Sennosides [Senna] 8.6 mg PO BID 02/05/18 02/05/18 History Sodium Chloride [Saline Nasal 1 spray NS TID 02/05/18 02/05/18 History [place]] Sulfamethoxazole/Trimethoprim 1 each PO BID 02/05/18 02/05/18 History [Bactrim DS tablet] Tramadol HCl [Ultram] 50 mg PO BID 02/05/18 02/05/18 History Ubidecarenone [Coenzyme Q10] 100 mg PO DAILY 02/05/18 02/05/18 History predniSONE [Deltasone 1mg tablet] 1 mg PO QODHS 02/05/18 02/05/18 History risperiDONE [Risperdal 1mg Tablet] 1 mg PO BID 02/05/18 02/05/18 History Anastrozole 1 mg PO DAILY 02/06/18 02/06/18 History Fluticasone Propionate [Flonase 1 spr NS BID 02/06/18 02/06/18 History 50mcg nasal spray 16gm] Height: 1.68 m Weight: 64.467 kg Laboratory Results:: Laboratory Results - last 24 hr 02/05/18 13:00: Urine Color Yellow, Urine Appearance Cloudy, Urine pH 6.5, Ur Specific [place] 1.025, Urine Protein 1+, Urine Glucose (UA) Negative, Urine Ketones Negative, Urine Blood 1+, Urine Nitrate Negative, Urine Bilirubin Negative, Urine Urobilinogen 1.0, Ur Leukocyte Esterase Trace, Urine RBC 3-5, Urine WBC 10-20, Ur Squamous Epith Cells 5-10, Urine Bacteria 4+ 02/07/18 09:15: WBC 12.3 H D, RBC 3.83 L, Hgb 11.0 L, Hct 35.2 L, MCV 91.9, MCH 28.7, MCHC 31.2 L, RDW 13.1, Plt Count 330, MPV 8.4, Neut % (Auto) 85.5 H, Lymph % (Auto) 9.1 L, [place] % (Auto) 4.1, Eos % (Auto) 0.6, Baso % (Auto) 0.6, Neut # (Auto) 10.5 H, Lymph # (Auto) 1.1, [place] # (Auto) 0.5, Eos # (Auto) 0.1, Baso # (Auto) 0.1, Total Counted 100, Neutrophils % (Manual) 81 H, Lymphocytes % (Manual) 13, Monocytes % (Manual) 6, Platelet Estimate Normal, RBC Morphology Normal 02/07/18 09:15: Sodium 133 L, Potassium 4.0, Chloride 92 L, Carbon Dioxide 37 H , Anion Gap 8.0, BUN 16 D, Creatinine 0.73, Estimated Creat Clear 48, Estimated GFR 77, Est GFR ( Amer) 94, Glucose 126 H, Calcium 10.1 02/07/18 14:39: Vancomycin Trough 10.4 Medical History: Reports:: Aneurysm, Anxiety, Atherosclerotic Heart Disease, Atrial Fibrillation, Cancer, Congestive Heart Failure, Chronic Obstructive Pulmonary Disease (COPD), Coronary Artery Disease, Depression, Diabetes Mellitus Type 2, Gastrointestinal Bleed, Home Oxygen, Hyperlipidemia, Hypertension, Lung Disease, Peripheral Artery Disease Assessment and Plan (1) RLL pneumonia Current visit: Yes Status: Acute Qualifiers: Pneumonia type: due to unspecified organism Qualified Code(s): J18.1 - Lobar pneumonia, unspecified organism Category: Medical Code(s): J18.1 - Lobar pneumonia, unspecified organism (2) Breast cancer, left Current visit: Yes Status: Chronic Category: Medical Code(s): C50.912 - Malignant neoplasm of unspecified site of left female breast (3) Coronary artery disease Current visit: Yes Status: Chronic Category: Medical Code(s): I25.10 - Atherosclerotic heart disease of [place] coronary artery without angina pectoris (4) Cancer of left lung Current visit: Yes Status: Chronic Category: Medical Code(s): C34.92 - Malignant neoplasm of unspecified part of left bronchus or lung (5) Anemia Current visit: Yes Status: Chronic Category: Medical Code(s): D64.9 - Anemia, unspecified (6) Hyponatremia Current visit: Yes Status: Acute Category: Medical Code(s): E87.1 - Hypo- osmolality and hyponatremia (7) Atrial fibrillation, new onset Current visit: Yes Status: Chronic Category: Medical Code(s): I48.91 - Unspecified atrial fibrillation (8) Anxiety Current visit: Yes Status: Chronic Category: Medical Code(s): F41.9 - Anxiety disorder, unspecified (9) Diabetes mellitus, type 2 Current visit: Yes Status: Chronic Category: Medical Code(s): E11.9 - Type 2 diabetes mellitus without complications - Assessment and plan all Dx Assessment and Plan for all problems:: BASED ON PATIENT'S VANCOMYCIN TROUGH PRIOR TO 3RD DOSE, RECOMMEND CONTINUING WITH CURRENT DOSE AND INTERVAL AT THIS TIME. PHARMACY WILL FOLLOW DAILY AND ADJUST APPROPRIATE. EMMA TRAORE, REINAD
[2018-02-08 06:25] LABS: Basophils # 0.1 K/mm3 (0-0.2); Eosinophils # 0.1 K/mm3 (0.0-0.4); Eosinophils % 0.9 % (0.1-12.0); Hematocrit 32.3 % (37.0-47.0); Hemoglobin 10.4 g/dL (12.2-16.2); Lymphocytes % 14.7 K/mm3 (10-50); Mean Corpuscular HGB Conc 32.2 g/dL (31.8-35.4); Mean Corpuscular Hemoglobin 29.4 pg (27.0-31.2); Mean Corpuscular Volume 91.5 fl (81-99); Mean Platelet Volume 7.4 fl (7.4-10.4); Monocytes # 0.7 K/mm3 (0.1-1.0); Monocytes % 5.1 % (1.7-9.3); Neutrophils # 10.4 K/mm3 (1.8-7.8); Neutrophils % 78.3 % (37.0-80.0); Platelet Count 355 K/mm3 (142-424); Red Blood Count 3.53 M/mm3 (4.20-5.40); Red Cell Distribution Width 13.2 % (11.5-17.5); White Blood Count 13.2 K/mm3 (4.8-10.8)
[2018-02-08 06:31] LABS: Anion Gap 8.4 mEq/L (5-15); Calcium 9.8 mg/dL (8.5-10.1); Potassium 3.4 mmoL/L (3.5-5.1)
--- NOTE | 2018-02-08 08:34 | Progress Note ---
Internal Medicine - PN: Subj *Date: 02/08/18 *Time: 08:30 Interval history: Patient denies chest pain today. She feels her breathing is better better. She does have somewhat of a cough. She is drinking fluids well but eating poorly. Her bowels did not move yesterday. Urine culture now reveals gram-positive bacteria with colony count greater than 100,000 Exam Vital signs and Labs for Last 24 Hours: Temp Pulse Resp BP Pulse Ox 98.4 F 71 18 104/53 96 02/08/18 07:34 02/08/18 07:34 02/08/18 07:34 02/08/18 07:34 02/08/18 07:34 Laboratory Results - last 24 hr 02/05/18 13:00: Urine Color Yellow, Urine Appearance Cloudy, Urine pH 6.5, Ur Specific [place] 1.025, Urine Protein 1+, Urine Glucose (UA) Negative, Urine Ketones Negative, Urine Blood 1+, Urine Nitrate Negative, Urine Bilirubin Negative, Urine Urobilinogen 1.0, Ur Leukocyte Esterase Trace, Urine RBC 3-5, Urine WBC 10-20, Ur Squamous Epith Cells 5-10, Urine Bacteria 4+ 02/07/18 09:15: WBC 12.3 H D, RBC 3.83 L, Hgb 11.0 L, Hct 35.2 L, MCV 91.9, MCH 28.7, MCHC 31.2 L, RDW 13.1, Plt Count 330, MPV 8.4, Neut % (Auto) 85.5 H, Lymph % (Auto) 9.1 L, Iron % (Auto) 4.1, Eos % (Auto) 0.6, Baso % (Auto) 0.6, Neut # (Auto) 10.5 H, Lymph # (Auto) 1.1, Iron # (Auto) 0.5, Eos # (Auto) 0.1, Baso # (Auto) 0.1, Total Counted 100, Neutrophils % (Manual) 81 H, Lymphocytes % (Manual) 13, Monocytes % (Manual) 6, Platelet Estimate Normal, RBC Morphology Normal 02/07/18 09:15: Sodium 133 L, Potassium 4.0, Chloride 92 L, Carbon Dioxide 37 H, Anion Gap 8.0, BUN 16 D, Creatinine 0.73, Estimated Creat Clear 48, Estimated GFR 77, Est GFR ( Amer) 94, Glucose 126 H, Calcium 10.1 02/07/18 14:39: Vancomycin Trough 10.4 02/08/18 05:55: WBC 13.2 H, RBC 3.53 L, Hgb 10.4 L, Hct 32.3 L, MCV 91.5, MCH 29.4, MCHC 32.2, RDW 13.2, Plt Count 355, MPV 7.4, Neut % (Auto) 78.3, Lymph % (Auto) 14.7, Iron % (Auto) 5.1, Eos % (Auto) 0.9, Baso % (Auto) 1.0, Neut # (Au to) 10.4 H, Lymph # (Auto) 2.0, Iron # (Auto) 0.7, Eos # (Auto) 0.1, Baso # (Auto) 0.1 02/08/18 05:55: Sodium 137, Potassium 3.4 L, Chloride 95 L, Carbon Dioxide 37 H, Anion Gap 8.4, BUN 12, Creatinine 0.67, Estimated Creat Clear 48, Estimated GFR 85, Est GFR ( Amer) 103, Glucose 79 D, Calcium 9.8 I & O for Last 24 hours: Intake & Output 02/05/18 02/06/18 02/07/18 02/08/18 11:59 11:59 11:59 11:59 Intake Total 770 / 770 1380 / 1380 720 / 720 Output Total Balance 770 / 770 1380 / 1380 719 / 719 Weight 148 lb 4.546 oz 150 lb 1 oz 142 lb 2 oz 149 lb 5 oz Microbiology Reports for the Last 24 Hours: Microbiology 02/05/18 13:00 Urine,Catheterized Urine Culture - Preliminary Gram Positive Cocci Gram Positive Cocci#2 02/05/18 12:30 Blood Blood Culture - Preliminary NO GROWTH AFTER 48 HOURS 02/05/18 12:30 Blood Blood Culture - Preliminary NO GROWTH AFTER 48 HOURS Radiology Reports for the Last 24 Hours: 02/07/2018 chest x-ray IMPRESSION: 1. No change right lower lobe pneumonia. 2. Persistent opacity left lower lobe consistent with atelectasis or infiltrate unchanged with cardiomegaly - Constitutional no acute distress Comments: Lying on her right side. Head of bed elevated. Requesting fluids and assistance with repositioning. - *Routine Respiratory Exam Comments: Better air movement today. - *Routine Cardiovascular Exam Present: irregular rhythm Comments: Monitor showing atrial fibrillation with controlled ventricular response - *Routine Extremities Exam Present: edema Comments: Trace - *Routine Neurological Exam Present: alert, oriented X3 Assessment and Plan (1) RLL pneumonia Current visit: Yes Status: Acute Qualifiers: Pneumonia type: due to unspecified organism Qualified Code(s): J18.1 - Lobar pneumonia, unspecified organism Category: Medical Code(s): J18.1 - Lobar pneumonia, unspecified organism (2) Breast cancer, left Current visit: Yes Status: Chronic Category: Medical Code(s): C50.912 - Malignant neoplasm of unspecified site of left female breast (3) Coronary artery disease Current visit: Yes Status: Chronic Category: Medical Code(s): I25.10 - Atherosclerotic heart disease of [place] coronary artery without angina pectoris (4) Cancer of left lung Current visit: Yes Status: Chronic Category: Medical Code(s): C34.92 - Malignant neoplasm of unspecified part of left bronchus or lung (5) Anemia Current visit: Yes Status: Chronic Category: Medical Code(s): D64.9 - Anemia, unspecified (6) Hyponatremia Current visit: Yes Status: Acute Category: Medical Code(s): E87.1 - Hypo- osmolality and hyponatremia (7) Atrial fibrillation, new onset Current visit: Yes Status: Chronic Category: Medical Code(s): I48.91 - Unspecified atrial fibrillation (8) Anxiety Current visit: Yes Status: Chronic Category: Medical Code(s): F41.9 - Anxiety disorder, unspecified (9) Diabetes mellitus, type 2 Current visit: Yes Status: Chronic Category: Medical Code(s): E11.9 - Type 2 diabetes mellitus without complications (10) Bilateral pneumonia Current visit: Yes Status: Acute Category: Medical Code(s): J18.9 - Pneumonia, unspecified organism (11) Urinary tract infection Current visit: Yes Status: Acute Category: Medical Code(s): N39.0 - Urinary tract infection, site not specified - Assessment and plan all Dx Assessment and Plan for all problems:: Await for final urine culture results. Continue triple antibiotic coverage. Will try to wean vapotherm O2 again today.
--- NOTE | 2018-02-08 10:09 | Progress Note ---
Internal Medicine - PN: Subj *Date: 02/08/18 *Time: 10:09 Exam Vital signs and Labs for Last 24 Hours: Temp Pulse Resp BP Pulse Ox 98.4 F 76 18 104/53 96 02/08/18 07:34 02/08/18 09:14 02/08/18 07:34 02/08/18 07:34 02/08/18 07:34 Laboratory Results - last 24 hr 02/05/18 13:00: Urine Color Yellow, Urine Appearance Cloudy, Urine pH 6.5, Ur Specific [place] 1.025, Urine Protein 1+, Urine Glucose (UA) Negative, Urine Ketones Negative, Urine Blood 1+, Urine Nitrate Negative, Urine Bilirubin Negative, Urine Urobilinogen 1.0, Ur Leukocyte Esterase Trace, Urine RBC 3-5, Urine WBC 10-20, Ur Squamous [place]ith Cells 5-10, Urine Bacteria 4+ 02/07/18 09:15: Total Counted 100, Neutrophils % (Manual) 81 H, Lymphocytes % ( Manual) 13, Monocytes % (Manual) 6, Platelet Estimate Normal, RBC Morphology Normal 02/07/18 14:39: Vancomycin Trough 10.4 02/08/18 05:55: WBC 13.2 H, RBC 3.53 L, Hgb 10.4 L, Hct 32.3 L, MCV 91.5, MCH 29.4, MCHC 32.2, RDW 13.2, Plt Count 355, MPV 7.4, Neut % (Auto) 78.3, Lymph % ( Auto) 14.7, [place] % (Auto) 5.1, Eos % (Auto) 0.9, Baso % (Auto) 1.0, Neut # (Auto ) 10.4 H, Lymph # (Auto) 2.0, [place] # (Auto) 0.7, Eos # (Auto) 0.1, Baso # (Auto ) 0.1 02/08/18 05:55: Sodium 137, Potassium 3.4 L, Chloride 95 L, Carbon Dioxide 37 H , Anion Gap 8.4, BUN 12, Creatinine 0.67, Estimated Creat Clear 48, Estimated GFR 85, Est GFR ( Amer) 103, Glucose 79 D, Calcium 9.8 I & O for Last 24 hours: Intake & Output 02/05/18 02/06/18 02/07/18 02/08/18 23:59 23:59 23:59 23:59 Intake Total 360 / 360 1230 / 1230 1280 / 1280 Output Total Balance 360 / 360 1230 / 1230 1280 / 1280 - Weight 68.096 kg 68.067 kg 64.467 kg 67.727 kg Microbiology Reports for the Last 24 Hours: Microbiology 02/05/18 13:00 Urine,Catheterized Urine Culture - Preliminary Gram Positive Cocci Gram Positive Cocci#2 02/05/18 12:30 Blood Blood Culture - Preliminary NO GROWTH AFTER 48 HOURS 02/05/18 12:30 Blood Blood Culture - Preliminary NO GROWTH AFTER 48 HOURS Assessment and Plan (1) RLL pneumonia Current visit: Yes Status: Acute Qualifiers: Pneumonia type: due to unspecified organism Qualified Code(s): J18.1 - Lobar pneumonia, unspecified organism Category: Medical Code(s): J18.1 - Lobar pneumonia, unspecified organism (2) Breast cancer, left Current visit: Yes Status: Chronic Category: Medical Code(s): C50.912 - Malignant neoplasm of unspecified site of left female breast (3) Coronary artery disease Current visit: Yes Status: Chronic Category: Medical Code(s): I25.10 - Atherosclerotic heart disease of [place] coronary artery without angina pectoris (4) Cancer of left lung Current visit: Yes Status: Chronic Category: Medical Code(s): C34.92 - Malignant neoplasm of unspecified part of left bronchus or lung (5) Anemia Current visit: Yes Status: Chronic Category: Medical Code(s): D64.9 - Anemia, unspecified (6) Hyponatremia Current visit: Yes Status: Acute Category: Medical Code(s): E87.1 - Hypo- osmolality and hyponatremia (7) Atrial fibrillation, new onset Current visit: Yes Status: Chronic Category: Medical Code(s): I48.91 - Unspecified atrial fibrillation (8) Anxiety Current visit: Yes Status: Chronic Category: Medical Code(s): F41.9 - Anxiety disorder, unspecified (9) Diabetes mellitus, type 2 Current visit: Yes Status: Chronic Category: Medical Code(s): E11.9 - Type 2 diabetes mellitus without complications (10) Bilateral pneumonia Current visit: Yes Status: Acute Category: Medical Code(s): J18.9 - Pneumonia, unspecified organism (11) Urinary tract infection Current visit: Yes Status: Acute Category: Medical Code(s): N39.0 - Urinary tract infection, site not specified The patient's infection will respond to the chosen ABx?: Yes (STILL USING EMPIRIC THERAPY) Is the patient receiving the right drug, dose, and route?: Yes Could a more targeted ABx be ordered?: No (STILL AWAITING CULTURE RESULTS)
--- NOTE | 2018-02-09 08:26 | Progress Note ---
Internal Medicine - PN: Subj *Date: 02/09/18 *Time: 08:23 Interval history: Patient denies any pain today. She does state that the Vapotherm has irritated her nose. She is currently on a Ventimask and her oxygen is being weaned. She wants to be placed back on a nasal cannula today and I have explained that once we can wean her off the Ventimask, we can place a nasal cannula. She states she slept fairly well last night and she is trying to drink some this morning. Exam Vital signs and Labs for Last 24 Hours: Temp Pulse Resp BP Pulse Ox 97.7 F 60 18 102/61 96 02/09/18 07:36 02/09/18 08:07 02/09/18 07:36 02/09/18 07:36 02/09/18 07:36 I & O for Last 24 hours: Intake & Output 02/06/18 02/07/18 02/08/18 02/09/18 11:59 11:59 11:59 11:59 Intake Total 770 / 770 1480 / 1480 720 / 720 1375 / 1375 Output Total / Balance 770 / 770 1480 / 1480 719 / 719 1375 / 1375 Weight 150 lb 1 oz 142 lb 2 oz 149 lb 5 oz 153 lb 5 oz Microbiology Reports for the Last 24 Hours: Microbiology 02/05/18 13:00 Urine,Catheterized Urine Culture - Preliminary Gram Positive Cocci Aerococcus urinae - Constitutional no acute distress - *Routine Respiratory Exam Present: rhonchi (faint, better air movement) - *Routine Cardiovascular Exam Present: RRR - *Routine Abdominal Exam Present: soft, normoactive bowel sounds. Absent: tenderness - *Routine Extremities Exam Absent: edema Assessment and Plan (1) RLL pneumonia Current visit: Yes Status: Acute Qualifiers: Pneumonia type: due to unspecified organism Qualified Code(s): J18.1 - Lobar pneumonia, unspecified organism Category: Medical Code(s): J18.1 - Lobar pneumonia, unspecified organism (2) Breast cancer, left Current visit: Yes Status: Chronic Category: Medical Code(s): C50.912 - Malignant neoplasm of unspecified site of left female breast (3) Coronary artery disease Current visit: Yes Status: Chronic Category: Medical Code(s): I25.10 - Atherosclerotic heart disease of [place] coronary artery without angina pectoris (4) Cancer of left lung Current visit: Yes Status: Chronic Category: Medical Code(s): C34.92 - Malignant neoplasm of unspecified part of left bronchus or lung (5) Anemia Current visit: Yes Status: Chronic Category: Medical Code(s): D64.9 - Anemia, unspecified (6) Hyponatremia Current visit: Yes Status: Acute Category: Medical Code(s): E87.1 - Hypo- osmolality and hyponatremia (7) Atrial fibrillation, new onset Current visit: Yes Status: Chronic Category: Medical Code(s): I48.91 - Unspecified atrial fibrillation (8) Anxiety Current visit: Yes Status: Chronic Category: Medical Code(s): F41.9 - Anxiety disorder, unspecified (9) Diabetes mellitus, type 2 Current visit: Yes Status: Chronic Category: Medical Code(s): E11.9 - Type 2 diabetes mellitus without complications (10) Bilateral pneumonia Current visit: Yes Status: Acute Category: Medical Code(s): J18.9 - Pneumonia, unspecified organism (11) Urinary tract infection Problem details: D/T aerococcus urinae Current visit: Yes Status: Acute Category: Medical Code(s): N39.0 - Urinary tract infection, site not specified - Assessment and plan all Dx Assessment and Plan for all problems:: We will continue to wean off the Ventimask onto nasal oxygen. Will discuss antibiotic coverage with Dr. Gutiérrez as her urine culture is positive for Aerococcus urinae which is sensitive to penicillins.
--- NOTE | 2018-02-10 08:17 | Progress Note ---
Internal Medicine - PN: Subj *Date: 02/10/18 *Time: 08:16 Interval history: Patient has now been weaned off of her Ventimask on nasal cannula. She states she still does not feel very well. She is complaining of her nose hurting after having the Vapotherm. She states she slept well and she did eat some breakfast this morning. Exam Vital signs and Labs for Last 24 Hours: Temp Pulse Resp BP Pulse Ox 97.9 F 64 18 145/74 98 02/10/18 07:52 02/10/18 07:52 02/10/18 07:52 02/10/18 07:52 02/10/18 07:52 I & O for Last 24 hours: Intake & Output 02/07/18 02/08/18 02/09/18 02/10/18 11:59 11:59 11:59 11:59 Intake Total 1480 / 1480 820 / 820 1375 / 1375 1200 / 1200 Output Total / Balance 1480 / 1480 819 / 819 1375 / 1375 1200 / 1200 Weight 142 lb 2 oz 149 lb 5 oz 153 lb 5 oz 150 lb 8 oz Microbiology Reports for the Last 24 Hours: Microbiology 02/05/18 13:00 Urine,Catheterized Urine Culture - Preliminary Gram Positive Cocci Aerococcus urinae - Constitutional no acute distress - *Routine Respiratory Exam Present: decreased breath sounds. Absent: rales, rhonchi - *Routine Cardiovascular Exam Present: RRR - *Routine Abdominal Exam Present: soft, normoactive bowel sounds. Absent: tenderness - *Routine Extremities Exam Absent: edema Assessment and Plan (1) RLL pneumonia Current visit: Yes Status: Acute Qualifiers: Pneumonia type: due to unspecified organism Qualified Code(s): J18.1 - Lobar pneumonia, unspecified organism Category: Medical Code(s): J18.1 - Lobar pneumonia, unspecified organism (2) Breast cancer, left Current visit: Yes Status: Chronic Category: Medical Code(s): C50.912 - Malignant neoplasm of unspecified site of left female breast (3) Coronary artery disease Current visit: Yes Status: Chronic Category: Medical Code(s): I25.10 - Atherosclerotic heart disease of [place] coronary artery without angina pectoris (4) Cancer of left lung Current visit: Yes Status: Chronic Category: Medical Code(s): C34.92 - Malignant neoplasm of unspecified part of left bronchus or lung (5) Anemia Current visit: Yes Status: Chronic Category: Medical Code(s): D64.9 - Anemia, unspecified (6) Hyponatremia Current visit: Yes Status: Acute Category: Medical Code(s): E87.1 - Hypo- osmolality and hyponatremia (7) Atrial fibrillation, new onset Current visit: Yes Status: Chronic Category: Medical Code(s): I48.91 - Unspecified atrial fibrillation (8) Anxiety Current visit: Yes Status: Chronic Category: Medical Code(s): F41.9 - Anxiety disorder, unspecified (9) Diabetes mellitus, type 2 Current visit: Yes Status: Chronic Category: Medical Code(s): E11.9 - Type 2 diabetes mellitus without complications (10) Bilateral pneumonia Current visit: Yes Status: Acute Category: Medical Code(s): J18.9 - Pneumonia, unspecified organism (11) Urinary tract infection Problem details: D/T aerococcus urinae Current visit: Yes Status: Acute Category: Medical Code(s): N39.0 - Urinary tract infection, site not specified - Assessment and plan all Dx Assessment and Plan for all problems:: Possible discharge back to [facility] today on antibiotics. Will discuss with Dr. Gutiérrez.
--- NOTE | 2018-02-10 08:55 | Discharge Summary ---
General - General Admission date:: 02/05/18 <Santos Negron - 02/14/18 15:11> 02/05/18 <Yuliya Navarro - 02/10/18 08:58> Discharge date: 02/10/18 <Yuliya Navarro - 02/10/18 08:58> HPI HPI: Ms. Leger is a 77-year-old female who is a resident of [facility] who presented to [facility] with noted shortness of breath and lethargy. Patient states that she slept for 3 days and did not eat or drink much during the study of time. She states that she has been has been sick for about 4-5 days. She denies cough, chest pain and fever. Prior to admission she had been started on an antibiotic and CBC and BMP were obtained with unknown results. When family was visiting with her yesterday they requested that she brought to the emergency room for evaluation. Patient has an extensive medical history to include diabetes mellitus type 2, breast cancer with partial left mastectomy, anemia, agoraphobia, COPD, aortic and bilateral iliac artery aneurysms with repair, and suspected non-small cell lung cancer of the left upper lobe with treatment, and CAD with stenting of the left anterior descending. With evaluation in the emergency room she was felt to have a right pneumonia with elevated white blood cell count and was admitted. She was started on Vapotherm with O2 percent increased to 40. Patient states she has not been coughing and does not want to cough. She does not want breathing treatments. She states this puts fluid in her lungs and makes it so she cannot breathe. She does feel better this a.m. denies chest pain but has shortness of breath with any activity. She has been eating a little but drinks fluids well. Patient was noted to be in atrial fibrillation in the ER and has remained as such on the monitor. She has a controlled ventricular response. She has been started on IV Levaquin, Vancomycin, and piperacillin. <Yuliya Navarro - 02/10/18 08:58> Hospital Course Hospital Course: The patient's CXR showed a RLL pneumonia. A Chest CT showed bilateral pneumonia and mild CHF. A sputum was never obtained. She was also found to have a UTI caused by aerococcus urinae which was sensitive to PCN. The patient was able to be weaned off the vapotherm onto a ventimask and then onto nasal oxygen. A repeat CXR showed a persistent pneumonia. Her symptoms did improve although she continued to feel poorly. She was sleeping and eating well. She was stable to be discharged back to [facility] and will need 5 more days of IV abx. <Yuliya Navarro - 02/10/18 08:58> Objective Vital signs: Temp Pulse Resp BP Pulse Ox 97.6 F 79 18 114/58 95 02/10/18 11:47 02/10/18 11:47 02/10/18 11:47 02/10/18 11:47 02/10/18 11:47 <Santos Negron - 02/14/18 15:11> Temp Pulse Resp BP Pulse Ox 97.9 F 64 18 145/74 98 02/10/18 07:52 02/10/18 07:52 02/10/18 07:52 02/10/18 07:52 02/10/18 07:52 <Yuliya Navarro - 02/10/18 08:58> Narrative: - Constitutional no acute distress, cooperative - *Routine HEENT Exam Head: Present: normocephalic, atraumatic Eye: Present: PERRL ENT: Present: mucous membranes moist, nares patent - *Routine Neck Exam Present: supple, full ROM. Absent: carotid bruit, lymphadenopathy, thyromegaly - *Routine Respiratory Exam Present: decreased breath sounds (On the left; crackles in right base posteriorly) - *Routine Cardiovascular Exam Comments: Monitor and EKG show atrial fib with a controlled ventricular response. - *Routine Abdominal Exam Present: soft, normoactive bowel sounds. Absent: tenderness, distended - *Routine Extremities Exam Present: edema (Around ankles). Absent: calf tenderness Comments: around bilateral ankles. Has SAM hose on - *Routine Neurological Exam Present: alert, oriented X3. Absent: tremors Slow speech - Routine Psychiatric Exam Present: cooperative, anxious <RamonYuliya - 02/10/18 08:58> Results Labs on day of discharge: Preliminary micro results at discharge 02/05/18 13:00 Urine Culture - Preliminary Urine,Catheterized Gram Positive Cocci Aerococcus urinae 02/05/18 12:30 Blood Culture - Preliminary Blood NO GROWTH AFTER 48 HOURS 02/05/18 12:30 Blood Culture - Preliminary Blood NO GROWTH AFTER 48 HOURS <Yuliya Navarro - 02/10/18 08:58> DS: Diagnosis - Discharge Diagnosis (1) RLL pneumonia Status: Acute (2) Breast cancer, left Status: Chronic (3) Coronary artery disease Status: Chronic (4) Cancer of left lung Status: Chronic (5) Anemia Status: Chronic (6) Hyponatremia Status: Acute (7) Atrial fibrillation, new onset Status: Chronic (8) Anxiety Status: Chronic (9) Diabetes mellitus, type 2 Status: Chronic (10) Bilateral pneumonia Status: Acute (11) Urinary tract infection Status: Acute Problem details: D/T aerococcus urinae <RamonYuliya - 02/10/18 09:10> (1) RLL pneumonia Status: Acute (2) Breast cancer, left Status: Chronic (3) Coronary artery disease Status: Chronic (4) Cancer of left lung Status: Chronic (5) Anemia Status: Chronic (6) Hyponatremia Status: Acute (7) Atrial fibrillation, new onset Status: Chronic (8) Anxiety Status: Chronic (9) Diabetes mellitus, type 2 Status: Chronic (10) Bilateral pneumonia Status: Acute (11) Urinary tract infection Status: Acute Problem details: D/T aerococcus urinae <Santos Negron - 02/14/18 15:11> Discharge Plan - Patient Discharge Instructions Patient Instructions: DI for Atrial Fibrillation <Santos Negron - 15:11> - Follow up Plan Follow up with: Peter Gutiérrez MD [Primary Care Provider] - (at [facility]) <Santos Negron - 02/14/18 15:11> Disposition: Xfer [facility] <Santos Negron - 02/14/18 15:11> Home Medications: Home Medications Medication Instructions Recorded Confirmed Type Aspirin [Aspirin 81mg chewable 81 mg PO DAILY 02/05/18 02/05/18 History tab] Calcium Carbonate/Vitamin D3 1 each PO BID 02/05/18 02/05/18 History [Calcium 250-Vit D3 125 Tablet] Clopidogrel Bisulfate [Plavix 75mg 75 mg PO DAILY 02/05/18 02/05/18 History Tab] Digoxin 0.125 mg PO DAILY 02/05/18 02/05/18 History Enalapril Maleate 2.5 mg PO DAILY 02/05/18 02/05/18 History Ferrous Sulfate [Ferrous Sulfate 325 mg PO DAILY 02/05/18 02/05/18 History 325mg Tablet] Furosemide [Furosemide 40MG tAB] 40 mg PO DAILY 02/05/18 02/05/18 History Gabapentin [Gabapentin 100mg Cap] 100 mg PO TID 02/05/18 02/05/18 History Gluc Helms/MSM/Magnesium/Vit C 1 each PO DAILY 02/05/18 02/05/18 History [Glucosamine Complex-MSM Cap] Lactulose [Lactulose 10gm/15ml 20 gm PO DAILYP PRN 02/05/18 02/05/18 History Oral Soln] Metformin HCl [Metformin 500mg 500 mg PO BID 02/05/18 02/05/18 History Tablet] Multivit,Iron,Min 5/Folic Acid 1 each PO DAILY 02/05/18 02/05/18 History [Strovite Forte Caplet] Omeprazole [Omeprazole 20mg 20 mg PO HS 02/05/18 02/05/18 History Capsule] Potassium Chloride [Micro-K 10mEq 10 meq PO DAILY 02/05/18 02/05/18 History cap] Pravastatin Sodium [Pravachol] 20 mg PO HS 02/05/18 02/05/18 History Sennosides [Senna] 8.6 mg PO BID 02/05/18 02/05/18 History Sodium Chloride [Saline Nasal 1 spray NS TID 02/05/18 02/05/18 History [place]] Sulfamethoxazole/Trimethoprim 1 each PO BID 02/05/18 02/05/18 History [Bactrim DS tablet] Tramadol HCl [Ultram] 50 mg PO BID 02/05/18 02/05/18 History Ubidecarenone [Coenzyme Q10] 100 mg PO DAILY 02/05/18 02/05/18 History predniSONE [Deltasone 1mg tablet] 1 mg PO QODHS 02/05/18 02/05/18 History risperiDONE [Risperdal 1mg Tablet] 1 mg PO BID 02/05/18 02/05/18 History Anastrozole 1 mg PO DAILY 02/06/18 02/06/18 History Fluticasone Propionate [Flonase 1 spr NS BID 02/06/18 02/06/18 History 50mcg nasal spray 16gm] <Santos Negron - 02/14/18 15:11> Prescriptions/Medication Reconciliation: New Vancomycin HCl [Vancomycin 1000mg Adv] 1,000 mg IV Q24H 5 Days #5 vial.port Ipratropium/Albuterol Sulfate [Duoneb 3mL neb] 3 ml IH TID #30 neb predniSONE [Deltasone 10mg tablet] 10 mg PO BID #14 tab Pipercillin/Tazo [Zosyn 3.375gm vial] 3.375 gm IV Q6H 5 Days #20 vial Continue Digoxin 0.125 mg PO DAILY Lactulose [Lactulose 10gm/15ml Oral Soln] 20 gm PO DAILYP PRN PRN Reason: bowels Sulfamethoxazole/Trimethoprim [Bactrim DS tablet] 1 each PO BID Potassium Chloride [Micro-K 10mEq cap] 10 meq PO DAILY Metformin HCl [Metformin 500mg Tablet] 500 mg PO BID Furosemide [Furosemide 40MG tAB] 40 mg PO DAILY Clopidogrel Bisulfate [Plavix 75mg Tab] 75 mg PO DAILY Ubidecarenone [Coenzyme Q10] 100 mg PO DAILY Sennosides [Senna] 8.6 mg PO BID risperiDONE [Risperdal 1mg Tablet] 1 mg PO BID predniSONE [Deltasone 1mg tablet] 1 mg PO QODHS Pravastatin Sodium [Pravachol] 20 mg PO HS Omeprazole [Omeprazole 20mg Capsule] 20 mg PO HS Gabapentin [Gabapentin 100mg Cap] 100 mg PO TID Enalapril Maleate 2.5 mg PO DAILY Calcium Carbonate/Vitamin D3 [Calcium 250-Vit D3 125 Tablet] 1 each PO BID Tramadol HCl [Ultram] 50 mg PO BID Gluc Helms/MSM/Magnesium/Vit C [Glucosamine Complex-MSM Cap] 1 each PO DAILY Sodium Chloride [Saline Nasal [place]] 1 spray NS TID Aspirin [Aspirin 81mg chewable tab] 81 mg PO DAILY Ferrous Sulfate [Ferrous Sulfate 325mg Tablet] 325 mg PO DAILY Multivit,Iron,Min 5/Folic Acid [Strovite Forte Caplet] 1 each PO DAILY Fluticasone Propionate [Flonase 50mcg nasal spray 16gm] 1 spr NS BID Anastrozole 1 mg PO DAILY <Santos Negron - 02/14/18 15:11> - Additional Information Additional Information: Concur with plan for discharge as outlined above. <Santos Negron - 02/14/18 15:11>
[2018-02-10 11:50] VITALS: BP 114/58
== END 2018-02-10 11:57 ==
LOC: ER 11:27 → 2ND 11:27 → OBSVTOIN 14:12 → 2ND 14:13
PROVIDERS: ADMIT Family Medicine; ATTEND Family Medicine

== ENCOUNTER 2018-02-13 13:15 | Outpatient (CLI) | payer MEDICARE, MEDICAID, SELFPAY ==
--- NOTE | 2018-02-13 17:34 | PC.NURSE ---
PICC WAS ATTEMPTED X4 STICKS PER AMANDA MCDONALD. WITH EACH ATTEMPT THE GUIDE WIRE OR PICC WOULD NOT THREAD. REPORT CALLED TO CUSTODIAL AND ALSO TO MD OFFICE.
== END 2018-02-13 16:00 ==
PROVIDERS: PCP Family Medicine; Visit Provider Family Medicine
DX: J18.9 Pneumonia, unspecified organism (principal); C50.912 Malignant neoplasm of unspecified site of left female breast; I25.10 Atherosclerotic heart disease of native coronary artery without angina pectoris; C34.92 Malignant neoplasm of unspecified part of left bronchus or lung; D64.9 Anemia, unspecified; N39.0 Urinary tract infection, site not specified
CPT/HCPCS: C1751; G0463

== ENCOUNTER → 2018-03-08 09:19 | Outpatient (CLI) | payer MEDICARE, MEDICAID, SELFPAY ==
--- NOTE | 2018-03-08 09:21 | US_ITS ---
US biopsy guidance, US organ site (breast) HISTORY: Abnormal breast ultrasound showing a hypoechoic suspicious nodule in the medial left breast at 6 mm. ITS.REASON: abdnormal breast mammogram ORDERING PHYSICIAN: Danny Donaldson MD PATIENT AGE: 78 years COMPARISON: None TECHNIQUE: Following obtaining informed consent, using aseptic technique and local anesthesia with buffered lidocaine, fine-needle aspiration was performed of the nodule of interest using sonographic guidance. Initially FNA was performed with 21-gauge needle. Following this 2 core biopsies was obtained with 19-gauge core biopsy followed with a 16-gauge core biopsy. The patient tolerated the procedure well without evidence of immediate complications and left the ultrasound suite in stable condition. Pathology: Fragments of hyalinized fibrotic breast tissue with hemorrhage and acute inflammation. Negative for hyperplasia, in situ, or invasive carcinoma IMPRESSION: Successful sonographic guided biopsy of the left breast showing no evidence of malignancy.
--- NOTE | 2018-03-08 09:31 | CT_ITS ---
CT chest wo con HISTORY: Follow-up pneumonia ITS.REASON: PNEUMONIA ORDERING PHYSICIAN: Danny Donaldson MD PATIENT AGE: 78 years COMPARISON: 02/06/2018 Technique: Axial images obtained with sagittal and coronal reformats. All CT scans at the facility use one or more dose reduction, viz: automated exposure control, ma/kV adjustment per patient size (including targeted exams where dose is matched to indication, i.e. head), or iterative reconstruction technique. FINDINGS: There is cardiomegaly with coronary artery calcifications and stents. There is minimal thickening of the pericardium not significant change. The ascending aorta is slightly prominent at 4.1 centimeters. The pulmonary arteries are also prominent with the main pulmonary artery at 4.2 cm. No mediastinal or hilar mass. There are centrilobular emphysematous changes. There has been improvement in the bilateral pneumonia. There remains some mild residual infiltrate in the right upper lobe and left upper lobe. There remains diffuse bronchial thickening and mild prominence of the interstitium There is mild thoracic curvature convex right Abdominal images show pneumobilia and mild dilatation of the upper abdominal aorta the centimeters. IMPRESSION: Persistent but improving bilateral pneumonia. Cardiomegaly with mild prominence of the ascending aorta and main pulmonary artery.
== END ==
PROVIDERS: Family Provider Family Medicine; PCP Family Medicine; Visit Provider Surgery
DX: N63.20 Unspecified lump in the left breast, unspecified quadrant (principal); R92.8 Other abnormal and inconclusive findings on diagnostic imaging of breast
CPT/HCPCS: 19083; 71250; 76641; 76942; 88172; 88173; 88305

== ENCOUNTER → 2018-08-30 11:38 | Outpatient (CLI) | payer MEDICARE, MEDICAID, SELFPAY ==
--- NOTE | 2018-08-30 11:45 | CA_ITS ---
PROCEDURE: 2-D M-mode and color Doppler study INDICATIONS FOR THE TEST: Chest pain COPD+ Heart Murmur Tobacco Smoking Palpitations Fatigue Syncope Edema Hypertension Diabetes Mellitus+ Rheumatic Fever SOB ERNANDEZ Obesity Hyperlipidemia Family History HD Additional History HX BREAST CA, CAD, LUNG CA, STENTS, LIMITED EXAM PT UP IN WHEELCHAIR, CANT LAY FLAT PATIENT INFORMATION HEIGHT: 66 WEIGHT:123 GENDER: Female B/P: 2-D/M-MODE INTERPRETATION: 2-D MEASUREMENTS OBSERVED VALUES IN CMS Right Ventricular Dimension (RVDd) Interventricular Septum (Thickness)(IVsd) Left Ventricular Internal Dimensions(LVIDd) Left Ventricular Posterior Wall (Thickness)(LVPWd) Aortic Root Aortic Cusp Separation Left Atrial Dimensions (LAD) 2D 1. Left atrium is moderately enlarged, left ventricle is normal size, mild concentric left ventricular hypertrophy, visually estimated ejection fraction 50% with no regional wall motion abnormality, endocardial subsequent poorly visualized. 2. The right atrium and right ventricle are mildly enlarged with normal contractility. 3. The aortic valve is thickened and calcified leaflet continue to display good mobility. 4. The mitral and tricuspid valve leaflets are minimally thickened. 5. The pulmonic valve is poorly visualized. 6. No significant pericardial effusion noted. DOPPLER INTERROGATION: Doppler interrogation of the aortic, mitral and tricuspid valvular presence of mild aortic, mild mitral and tricuspid regurgitation, calculated right ventricular systolic pressure is 45 mmHg consistent with moderate pulmonary hypertension, diastolic parameters are inconclusive. CONCLUSION: 1. Moderately enlarged left atrium, normal left ventricular size, mild concentric left ventricular hypertrophy, visually estimated ejection fraction 50% with no regional wall motion abnormality, diastolic parameters are inconclusive. 2. Mildly enlarged right ventricle with normal contractility. 3. Mild aortic, mild mitral and tricuspid regurgitation, calculated right ventricular systolic pressure is 45 mmHg consistent with moderate pulmonary hypertension. 4. No significant pericardial effusion noted.
== END ==
PROVIDERS: PCP Family Medicine; Visit Provider Urology
DX: E11.8 Type 2 diabetes mellitus with unspecified complications (principal); F41.9 Anxiety disorder, unspecified; I25.10 Atherosclerotic heart disease of native coronary artery without angina pectoris; I48.2 Chronic atrial fibrillation; I50.9 Heart failure, unspecified; J43.9 Emphysema, unspecified; R06.09 Other forms of dyspnea; R42 Dizziness and giddiness; R94.31 Abnormal electrocardiogram [ECG] [EKG]; Z87.891 Personal history of nicotine dependence; Z79.84 Long term (current) use of oral hypoglycemic drugs
CPT/HCPCS: 93306

== ENCOUNTER → 2018-11-09 13:55 | Outpatient (CLI) | payer MEDICARE, MEDICAID, SELFPAY ==
--- NOTE | 2018-11-09 14:00 | MM_ITS ---
MM Dig mamm BI DX w/CAD INDICATION: Redness in left breast, bilateral breast changes ORDERING PHYSICIAN: Yessica Farfan MD PATIENT AGE: 78 years COMPARISON: 01/27/2018, 01/16/2018, 11/12/2016 TECHNIQUE: Standard images performed along with spot compression views of the right breast. FINDINGS: There has been prior left breast cancer with radiation to the left breast. There is resultant diffuse increased density with skin thickening of the distal aspect of the left breast with multiple areas of calcification not significant changed. There is a benign-appearing nodule in the inferior aspect of the left breast. Represent a lymph node at 17 x 7 mm. Multiple calcified nodules are present in the left breast as well. No new nodules are apparent. On the right there is an asymmetric area of increased density in the retroareolar region which did appear to compress out on the focal spot compression views. There is a benign-appearing nodule in the central aspect of the right breast superiorly measuring 11 x 6 mm consistent with a fibroadenoma. IMPRESSION: There is been overall no significant change. There remains diffuse skin thickening with increased density of the left breast along with interstitial edema. Cannot exclude the possibility of neoplasm in the left breast is patient with history of breast cancer on the left. The findings may related represent postradiation changes. No discrete mass or malignant appearing microcalcification is evident. Recommend left breast ultrasound for further evaluation The right breast has an unremarkable appearance. BI-RADS Category: 0 Need Additional Imaging Evaluation RECOMMENDED FOLLOW-UP: IMM - IMMEDIATE FOLLOW-UP RECOMMENDED (A letter has been sent to the patient regarding results of the study.)
== END ==
PROVIDERS: PCP Family Medicine; Visit Provider Internal Medicine Medical Oncology
DX: C50.912 Malignant neoplasm of unspecified site of left female breast (principal)
CPT/HCPCS: 77066

== ENCOUNTER → 2019-02-08 10:52 | Outpatient (CLI) | payer MEDICARE, MEDICAID, SELFPAY ==
--- NOTE | 2019-02-08 10:54 | US_ITS ---
PROCEDURE: US BREAST LT COMPLETE CLINICAL INDICATION: HX BREAST CA, FU MAMM COMPARISON: BREASTLT US breast LT complete from 01/27/2018 BX US biopsy guidance from 03/08/2018 FINDINGS: General survey left breast performed showing diffuse skin and subcutaneous thickening as before. There remains a hypoechoic area in the 10 o'clock region of the left breast which measures 1.2 x 1.9 x 0.6 cm. This has a similar appearance compared to the previous exam. In addition, there is a 0.8 x 0.5 cm hypoechoic nodule with posterior acoustical shadowing in the 10 o'clock region of the left breast medially unchanged. This was biopsied previously and was negative for neoplasm. IMPRESSION: Stable ultrasound appearance of the breast. Hypoechoic areas at 10 o'clock are stable Dictated by: Tom Steiner MD 02/08/2019 17:03 Signed by: <Electronically signed by Tom Steiner MD in [place]> 02/08/2019 17:03
== END ==
PROVIDERS: PCP Family Medicine; Visit Provider Internal Medicine Medical Oncology
DX: R92.8 Other abnormal and inconclusive findings on diagnostic imaging of breast (principal)
CPT/HCPCS: 76641

== ENCOUNTER → 2019-02-28 13:24 | Outpatient (CLI) | payer MEDICARE, MEDICAID, SELFPAY ==
[2019-02-28 13:47] LABS: Basophils % 0.3 % (0.1-2.0); Eosinophils # 0.1 K/mm3 (0.0-0.4); Eosinophils % 0.9 % (0.1-12.0); Hemoglobin 13.3 g/dL (12.2-16.2); Lymphocytes % 21.1 % (10-50); Mean Corpuscular HGB Conc 33.4 g/dL (31.8-35.4); Mean Corpuscular Hemoglobin 32.1 pg (27.0-31.2); Mean Corpuscular Volume 96.1 fl (81-99); Mean Platelet Volume 8.6 fl (7.4-10.4); Monocytes # 0.4 K/mm3 (0.1-1.0); Monocytes % 3.8 % (1.7-9.3); Neutrophils # 6.9 K/mm3 (1.8-7.8); Neutrophils % 73.9 % (37.0-80.0); Platelet Count 252 K/mm3 (142-424); Red Blood Count 4.16 M/mm3 (4.20-5.40); Red Cell Distribution Width 12.6 % (11.5-17.5); White Blood Count 9.3 K/mm3 (4.8-10.8)
[2019-02-28 13:55] LABS: Anion Gap 11.4 mEq/L (5-15); Blood Urea Nitrogen 24 mg/dL (7-18); Calcium 8.8 mg/dL (8.5-10.1); Carbon Dioxide 32 mmol/L (21.0-32.0); Chloride 97 mmol/L (98-107); Creatinine,Serum 0.71 mg/dL (0.55-1.02); Estimated Glomerular Filt Rate 80 ml/min (>60); GFR (African American) 96 ML/MIN (>60); Glucose 111 mg/dL (74-106); Potassium 4.4 mmoL/L (3.5-5.1); Sodium 136 mmol/L (136-145)
== END ==
PROVIDERS: Visit Provider Internal Medicine
DX: I25.10 Atherosclerotic heart disease of native coronary artery without angina pectoris (principal); I48.91 Unspecified atrial fibrillation
CPT/HCPCS: 36415; 80048; 85025

== ENCOUNTER → 2019-04-16 09:52 | Outpatient (CLI) | payer MEDICARE, MEDICAID, SELFPAY ==
--- NOTE | 2019-04-16 | MM_ITS ---
PROCEDURE: MM DIG MAMM DX UNILAT LT CAD CLINICAL INDICATION: History of breast cancer with increasing size of the left breast. COMPARISON: DMDB DIG MAMM-DX MONI W/CAD from 11/12/2016 [facility] MM Dig screening mamm BI w/CAD from 01/16/2018 DXLT MM Dig mamm DX unilat LT CAD from 01/27/2018 DIG MAMM-DX MONI from 11/09/2018 US BREAST LT COMPLETE from 02/08/2019 US BREAST LT COMPLETE from 04/16/2019 TECHNIQUE: Limited mammography performed along with left breast ultrasound. FINDINGS: The study is extremely limited due to patient's inability to be properly positioned and due to the unusual configuration of the breast. There is diffuse soft subcutaneous edema with significant increased density of the left breast especially along the distal and peripheral aspect. Coarse calcifications are present as before. No malignant appearing calcifications are apparent. No discrete mass is evident. There is benign-appearing nodule in the inferior aspect of the left breast as previously described. Left breast ultrasound: There is diffuse subcutaneous edema with no obvious new lesions. Hypoechoic complex nodule is present at 19 x 6 mm at the 10 o'clock region of the left breast unchanged. This measures 19 x 6 mm previously 19 x 7 mm. IMPRESSION: Extremely limited exam. Overall there is been diffuse increase in density of the left breast with diffuse subcutaneous edema with no discrete malignant appearing mass or malignant-appearing microcalcification. Correlation with physical exam is needed. Any palpable lesion should be managed on clinical basis especially in light of the diffuse increased density of the breast. BI-RAD Category: 2 Benign Finding(s) FOLLOW-UP: 1YR 1 Year Follow-up (A letter has been sent to the patient regarding results of the study.) Dictated by: Tom Steiner MD 04/20/2019 10:46 Electronically signed by Tom Steiner MD in [place] 04/20/2019 10:46
== END ==
PROVIDERS: PCP Family Medicine; Visit Provider Family Medicine
DX: N62 Hypertrophy of breast (principal); Z85.3 Personal history of malignant neoplasm of breast
CPT/HCPCS: 76641; 77065

== ENCOUNTER 2019-07-04 11:44 | Inpatient (IN) ==
--- NOTE | 2019-07-04 11:54 | Emergency Department Note ---
ED Disposition Clinical Impression: Sepsis, Right lower lobe pneumonia, Congestive heart failure, Diabetes mellitus, type 2, Atrial flutter, Septic shock Disposition: Admitted As Inpatient Condition on Discharge: Serious Time of Disposition: 13:48 - Critical Care Critical Care Time: Yes Attestation: On , the high probability of a clinically significant, sudden or life threatening deterioration of the following system(s) required my full and direct attention, intervention and personal management. The time I documented below is in addition to time spent performing reported procedures but includes the following listed in this critical care notation. Total Critical Care Time: 30 Vital system(s) involved:: Shock (Septic) My critical care processes included: Assessment & monitoring of V/S, Initial and Re-exams, Data Review/Interpretation, Coordinating Care, Medication Orders and management Medical Decision Making - Medical Records Medical records reviewed: Yes: I reviewed the patient's medical records. - Elvis Inquiry Pt receiving controlled substance: No Vital Signs: 07/04/19 11:34 07/04/19 12:06 07/04/19 12:15 Temperature 98.8 F Temperature Source Rectal Pulse Rate Pulse Rate [Left Radial] 83 99 H 82 Respiratory Rate 22 Blood Pressure [Left Arm] 99/35 L 84/51 L 70/21 L Blood Pressure Mean [Left Arm] 56 62 37 Blood Pressure Source [Left Arm] Automatic Cuff Blood Pressure Position [Left Arm] Right Lateral Sitting Sitting 02 Sat by Pulse Oximetry 94 L 93 L 92 L Oxygen Delivery Method Nasal Cannula Nasal Cannula Nasal Cannula Oxygen Flow Rate (LPM) 3 3 3 07/04/19 12:24 07/04/19 12:30 07/04/19 12:44 Temperature Temperature Source Pulse Rate 94 H Pulse Rate [Left Radial] 83 80 Respiratory Rate Blood Pressure [Left Arm] 107/39 L 75/38 L Blood Pressure Mean [Left Arm] 61 50 Blood Pressure Source [Left Arm] Blood Pressure Position [Left Arm] Sitting Sitting 02 Sat by Pulse Oximetry 93 L 92 L 92 L Oxygen Delivery Method Nasal Cannula Nasal Cannula Nasal Cannula Oxygen Flow Rate (LPM) 3 3 2 07/04/19 13:01 07/04/19 13:15 07/04/19 13:24 Temperature Temperature Source Pulse Rate Pulse Rate [Left Radial] 60 71 78 Respiratory Rate 22 Blood Pressure [Left Arm] 76/25 L 74/42 L 68/39 L Blood Pressure Mean [Left Arm] 42 52 48 Blood Pressure Source [Left Arm] Blood Pressure Position [Left Arm] Sitting Sitting Sitting 02 Sat by Pulse Oximetry 94 L 93 L Oxygen Delivery Method Nasal Cannula Nasal Cannula Oxygen Flow Rate (LPM) 2 3 07/04/19 13:33 07/04/19 14:33 07/04/19 15:00 Temperature Temperature Source Pulse Rate Pulse Rate [Left Radial] 85 77 Respiratory Rate 20 Blood Pressure [Left Arm] 73/37 L 83/40 L 60/35 L Blood Pressure Mean [Left Arm] 49 54 43 Blood Pressure Source [Left Arm] Automatic Cuff Automatic Cuff Blood Pressure Position [Left Arm] Sitting Supine 02 Sat by Pulse Oximetry 94 L Oxygen Delivery Method Nasal Cannula Oxygen Flow Rate (LPM) 07/04/19 15:40 07/04/19 16:16 07/04/19 16:35 Temperature Temperature Source Pulse Rate Pulse Rate [Left Radial] 78 78 Respiratory Rate Blood Pressure [Left Arm] 67/40 L 68/30 L 87/54 L Blood Pressure Mean [Left Arm] 49 42 65 Blood Pressure Source [Left Arm] Manual Cuff/ Auscultation Blood Pressure Position [Left Arm] Sitting Sitting Sitting 02 Sat by Pulse Oximetry 96 Oxygen Delivery Method Nasal Cannula Oxygen Flow Rate (LPM) 3 - Lab Data Lab results reviewed: Yes: I reviewed the patient's lab results. Lab Results 07/04/19 11:50: WBC 17.1 H, RBC 3.92 L, Hgb 12.1 L, Hct 37.9, MCV 96.9, MCH 30.8, MCHC 31.8, RDW 13.1, Plt Count 432 H, MPV 8.3, Neut % (Auto) 91.3 H, Lymph % (Auto) 5.6 L, [place] % (Auto) 2.3, Eos % (Auto) 0.3, Baso % (Auto) 0.5, Neut # (Auto) 15.6 H, Lymph # (Auto) 1.0, [place] # (Auto) 0.4, Eos # (Auto) 0.1, Baso # (Auto) 0.1, Total Counted 100, Neutrophils % (Manual) 75, Band Neutrophils % 3.0, Lymphocytes % (Manual) 15, Monocytes % (Manual) 2, Metamyelocytes % 3.0 H, Myelocytes % 2 H, Platelet Estimate Normal, Anisocytosis 1+, [place] Cells 1+, Acanthocytes (Spur) 1+ 07/04/19 11:50: Sodium 131 L, Potassium 5.5 H, Chloride 94 L, Carbon Dioxide 24, Anion Gap 18.5 H, BUN 53 H, Creatinine 2.13 H, Estimated Creat Clear 22, Fransisca mated GFR 22 L, Est GFR ( Amer) 27 L, Glucose 83, Calcium 9.3, Total Bilirubin 0.4, AST 16, ALT 16, Alkaline Phosphatase 67, Troponin I < 0.02, Total Protein 6.5, Albumin 2.6 L, Globulin 3.9 H, Albumin/Globulin Ratio 0.7 L, TSH 2.97 07/04/19 11:50: Lactate 0.9 07/04/19 11:50: B-Natriuretic Peptide 333 H 07/04/19 11:50: Troponin I Cancelled, Digoxin 3.90 H* 07/04/19 11:50: PT 11.6, INR 1.12 H, APTT 31.8 07/04/19 13:30: Urine Color Yellow, Urine Appearance Cloudy, Urine pH 5.5, Ur Specific [place] 1.025, Urine Protein 2+, Urine Glucose (UA) Negative, Urine Ketones 1+, Urine Blood Trace-i, Urine Nitrate Negative, Urine Bilirubin Negative, Urine Urobilinogen 0.2, Ur Leukocyte Esterase 1+ A, Urine RBC Occasional, Urine WBC 10-20, Ur Squamous Epith Cells Occasional, Urine Bacteria 4+ Result diagrams: 07/04/19 11:50 07/04/19 11:50 Orders (Tests/Meds): ED MEDICATIONS Generic Name Dose Route Start Last Admin Trade Name Christi PRN Reason Stop Dose Admin Acetaminophen 500 mg 07/04/19 14:01 Tylenol 500mg Tablet PO 08/03/19 14:00 Q6HP PRN Mild Pain Albuterol/Ipratropium 3 ml 07/04/19 21:00 Duoneb 3ml Neb IH 08/03/19 20:59 TID KARIS Atorvastatin Calcium 20 mg 07/04/19 21:00 Lipitor 20mg Tablet PO 08/03/19 20:59 HS KARIS Ferrous Sulfate 325 mg 07/05/19 09:00 Ferrous Sulfate 325mg Tablet PO 08/04/19 08:59 DAILY KARIS Gabapentin 100 mg 07/04/19 21:00 Neurontin 100mg Capsule PO 08/03/19 20:59 TID [facility] Piperacillin Sod/Tazobactam 50 mls @ 100 mls/hr 07/04/19 18:00 Sod 3.375 gm/ Sodium Chloride IV 07/18/19 17:59 Q6H [facility] Protocol Norepinephrine Bitartrate 8 mg 258 mls @ 3.87 mls/hr 07/04/19 16:00 07/04/19 16:16 / Dextrose IV 08/03/19 15:59 5.84 mcg/min .Q24H KARIS 11.3 mls/hr Titration Protocol 2 MCG/MIN Insulin Human Lispro 0 unit 07/04/19 16:30 Humalog 100 Units/Ml 3ml Vial ([facility]) SQ 08/03/19 16:29 ACHS [facility] Protocol Rivaroxaban 15 mg 07/04/19 18:00 Xarelto 15mg Tablet PO 08/03/19 17:59 PM [facility] Sodium Chloride 3 ml 07/04/19 15:21 Sodium Chloride 3% 15ml [facility] 08/03/19 15:20 ONCE PRN [employer] Tramadol HCl 50 mg 07/04/19 21:00 Ultram 50mg Tablet PO 08/03/19 20:59 BID [facility] Discontinued Medications Generic Name Dose Route Start Last Admin Trade Name Freq PRN Reason Stop Dose Admin Albuterol/Ipratropium 3 ml 07/04/19 12:18 07/04/19 12:43 Duoneb 3ml [facility] 07/04/19 12:19 3 ml ONCE ONE Administration Digoxin 125 mcg 07/05/19 09:00 Digoxin 0.125mg Tablet PO 08/04/19 08:59 DAILY [facility] Sodium Chloride 1,000 mls @ 999 mls/hr 07/04/19 11:51 07/04/19 12:24 Sod Chlor 0.9% 1000ml Bag IV 07/04/19 12:51 999 mls/hr .Q1H1M ONE Administration Piperacillin Sod/Tazobactam 50 mls @ 100 mls/hr 07/04/19 12:18 07/04/19 12:24 Sod 3.375 gm/ Sodium Chloride IV 07/04/19 12:47 100 mls/hr ONCE ONE Administration Protocol Sodium Chloride 950 mls @ 999 mls/hr 07/04/19 13:02 07/04/19 13:04 Sod Chlor 0.9% 1000ml Bag IV 07/04/19 13:59 999 mls/hr .Q58M ONE Administration Ondansetron HCl 4 mg 07/04/19 12:29 07/04/19 12:29 Zofran 4mg/2ml Vial IV 07/04/19 12:30 4 mg ONCE ONE Administration ORDERS Category Date Time Status Complete Blood Count Auto Diff [facility] Lab 07/05/19 06:00 Ordered Comprehensive Metabolic Panel [facility] Lab 07/05/19 06:00 Ordered Lipid Panel [facility] Lab 07/05/19 06:00 Ordered Magnesium [facility] Lab 07/05/19 06:00 Ordered Phosphorous [facility] Lab 07/05/19 06:00 Ordered Blood Culture Stat Micro 07/04/19 11:50 Received Urine Culture Stat Micro 07/04/19 13:30 Received General Adult HPI - General Chief complaint: Shortness of Breath/Dyspnea Stated complaint: WORSENING PNEUMONIA Time Seen by Provider: 07/04/19 11:44 Mode of Arrival: EMS Source of Information: Patient, EMS, Medical Record Limitations: No Limitations Description of Symptoms (Recalled from ER Triage Doc. by RN): PT BROUGHT VIA EMS FROM [place] WHEN STAFF STATED THAT PT HAS BEEN ON LEVAQUIN X7 DAYS FOR TREATMENT OF PNEUMONIA BUT DOESN'T SEEM TO BE GETTING ANY BETTER. STAFF STATES THAT PT STILL HAS LOW O2 SATS, NON-PRODUCTIVE COUGH, POOR PO INTAKE AND LOW BP. - History of Present Illness HPI narrative: 79-year-old female being treated for pneumonia with outpatient Levaquin p.o. presents to the emergency department with complaints of low O2 sat, increased cough, poor intake and low blood pressure. detention states she has not been getting any better on the Levaquin regimen. Onset (ago): day(s) (7) Severity: severe Consistency: constant Relieving factors: none Exacerbating factors: none Associated symptoms: cough, loss of appetite, malaise, shortness of breath, weakness Treatments prior to arrival: none - Related Data Home Medications Medication Instructions Recorded Confirmed Digoxin 0.125 mg PO DAILY 02/05/18 07/04/19 Enalapril Maleate 2.5 mg PO DAILY 02/05/18 07/04/19 Ferrous Sulfate [Ferrous Sulfate 325 mg PO DAILY 02/05/18 07/04/19 325mg Tablet] Furosemide [Furosemide 40MG tAB] 40 mg PO DAILY 02/05/18 07/04/19 Gabapentin [Gabapentin 100mg Cap] 100 mg PO TID 02/05/18 07/04/19 Gluc Helms/MSM/Magnesium/Vit C 1 each PO DAILY 02/05/18 07/04/19 [Glucosamine Complex-MSM Cap] Lactulose [Lactulose 10gm/15ml 20 gm PO DAILYP PRN 02/05/18 07/04/19 Oral Soln] Metformin HCl [Glucophage 500mg 500 mg PO BID 02/05/18 07/04/19 Tablet] Multivit,Iron,Min 5/Folic Acid 1 each PO DAILY 02/05/18 07/04/19 [Strovite Forte Caplet] Potassium Chloride [Micro-K 10mEq 10 meq PO DAILY 02/05/18 07/04/19 cap] Sennosides [Senna] 8.6 mg PO BID 02/05/18 07/04/19 Sodium Chloride [Saline Nasal 1 spray NS TID 02/05/18 07/04/19 [place]] Tramadol HCl [Ultram 50mg tablet] 50 mg PO BID 02/05/18 07/04/19 Ubidecarenone [Coenzyme Q10] 100 mg PO DAILY 02/05/18 07/04/19 risperiDONE [Risperdal 1mg Tablet] 1 mg PO BID 02/05/18 07/04/19 Anastrozole 1 mg PO DAILY 02/06/18 07/04/19 Fluticasone Propionate [Flonase 1 spr NS BID 02/06/18 07/04/19 50mcg nasal spray 16gm] acetaminophen 500 mg tablet 500 mg PO Q6H PRN 08/30/18 07/04/19 pantoprazole 20 mg tablet,delayed 20 mg PO DAILY 08/30/18 07/04/19 release prednisone 1 mg tablet 1 mg PO DAILY tab 08/30/18 07/04/19 atorvastatin 20 mg tablet 20 mg PO DAILY 02/28/19 07/04/19 rivaroxaban 20 mg tablet 20 mg PO DAILY 05/30/19 07/04/19 Ipratropium/Albuterol Sulfate 3 ml IH TID 07/04/19 07/04/19 [Duoneb 3mL neb] levoFLOXacin [Levofloxacin 750MG 750 mg PO DAILY 07/04/19 07/04/19 Tablet] Allergies Allergy/AdvReac Type Severity Reaction Status Date / Time No Known Allergies Allergy Verified 07/04/19 14:40 [facility] History - Hepatitis A Screen Drug use history?: No High risk sexual behaviors?: No History of sexually transmitted infection?: No Currently employed?: No Childcare worker?: No Do you have indoor plumbing?: Yes Do you have electricity?: Yes Attestation statement:: This patient has been screened for Hepatitis A risk factors. I have reviewed the patient's past medical history: Yes Medical History: Reports:: Aneurysm, Anxiety, Atherosclerotic Heart Disease, Atrial Fibrillation, Cancer, Congestive Heart Failure, Chronic Obstructive P ulmonary Disease (COPD), Coronary Artery Disease, Depression, Diabetes Mellitus Type 2, Gastrointestinal Bleed, Home Oxygen, Hyperlipidemia, Hypertension, Lung Disease, Peripheral Artery Disease Other Medical History: Reports: Anemia, Arthritis, Cataracts, Chemotherapy Laterality Cases: Left: Lumpectomy, Mastectomy Other Surgeries: Yes: Cancer Surgery, Cardiac Catheterization, Coronary Stent, Other Comment: Left partial mastectomy 12/22/2016; D&C; endovascular repair of AAA and bilateral iliac aneurysms 06/08/2017 - Social History Smoking Status: Never smoker #Yrs smoked (if former smoker): 53 Alcohol Intake: never Substance Use Type: denies use Occupational Status: disabled Housing: correction Household Members: other - Psychiatric History Pschychiatric History:: Reports:: Anxiety, Depression Family Hx:: Cancer, Coronary Artery Disease Comment: Mother-Pacemaker,@70's. Father-AFIB ROS Obtained: Yes Systems reviewed as appropriate & no additional complaints - Constitutional Constitutional: Reports fatigue, Reports malaise, Reports weakness - Eyes Eyes: Reports system reviewed and no additional complaints, except as docu - ENT Ears, Nose, Mouth, and Throat: Reports system reviewed and no additional complaints, except as docu - Cardiovascular Cardiovascular: Reports system reviewed and no additional complaints, except as docu - Respiratory Respiratory: Yes dyspnea - Gastrointestinal Gastrointestingal: Reports: system reviewed and no additional complaints, except as docu - Genitourinary Female Genitourinary: Reports system reviewed and no additional complaints, except as docu - Musculoskeletal Musculoskeletal: Reports system reviewed and no additional complaints, except as docu - Integumentary/Breasts Skin/Breast: Reports system reviewed and no additional complaints, except as docu - Neurologic Neurologic: Reports system reviewed and no additional complaints, except as docu - Endocrine Endocrine: Reports system reviewed and no additional complaints, except as docu - Hematologic/Lymphatic Henatologic/Lymphatic: Reports system reviewed and no additional complaints, except as docu - Allergic/Immunologic Allergic/Immunologic: Reports system reviewed and no additional complaints, except as docu Physical Exam - General General appearance: alert, in no apparent distress - Head Head exam: atraumatic, normocephalic, normal inspection - Eye Eye exam: Present: normal appearance, PERRL, EOMI - ENT ENT exam: Present: normal exam, normal oropharynx, mucous membranes moist, normal external ear exam - Neck Neck exam: Present: normal inspection, full ROM, trachea midline. Absent: meningismus, lymphadenopathy - Chest Chest inspection: Present: normal inspection, symmetric chest wall rise. Ab sent: tenderness - Respiratory Respiratory exam: Present: respiratory distress, wheezes, accessory muscle use, prolonged expiratory phase - Cardiovascular Cardiovascular exam: Present: regular rate, irregular rhythm, normal heart sounds. Absent: JVD - Abdominal Exam Abdominal exam: Present: soft, normal bowel sounds. Absent: distention, tenderness, guarding - Extremities Exam Extremities exam: Present: normal inspection, full ROM, normal capillary refill. Absent: calf tenderness - Back Exam Back exam: Present: normal inspection. Absent: tenderness - Neurological Exam Neurological exam: Present: alert, CN II-XII intact. Absent: motor sensory deficit - Psychiatric Psychiatric exam: Present: normal affect, normal mood - Skin Skin exam: Present: warm, dry, intact, normal color
[2019-07-04 12:10] LABS: Basophils # 0.1 K/mm3 (0-0.2); Basophils % 0.5 % (0.1-2.0); Eosinophils # 0.1 K/mm3 (0.0-0.4); Eosinophils % 0.3 % (0.1-12.0); Hematocrit 37.9 % (37.0-47.0); Hemoglobin 12.1 g/dL (12.2-16.2); Lymphocytes % 5.6 % (10-50); Mean Corpuscular HGB Conc 31.8 g/dL (31.8-35.4); Mean Corpuscular Volume 96.9 fl (81-99); Mean Platelet Volume 8.3 fl (7.4-10.4); Monocytes # 0.4 K/mm3 (0.1-1.0); Monocytes % 2.3 % (1.7-9.3); Neutrophils # 15.6 K/mm3 (1.8-7.8); Neutrophils % 91.3 % (37.0-80.0); Platelet Count 432 K/mm3 (142-424); Red Blood Count 3.92 M/mm3 (4.20-5.40); Red Cell Distribution Width 13.1 % (11.5-17.5); White Blood Count 17.1 K/mm3 (4.8-10.8)
[2019-07-04 12:21] LABS: Anisocytosis 1+; Lymphocytes % 15 % (10-50); Monocytes % 2 % (2-9); Myelocytes % 2 (0-1); Neutrophils % 75 % (42-76); Total Cells Counted 100
[2019-07-04 12:24] LABS: Alanine Aminotransferase 16 U/L (12-78); Albumin Level 2.6 gm/dL (3.4-5.0); Albumin/Globulin Ratio 0.7 (1.1-1.8); Alkaline Phosphatase 67 U/L (46-116); Anion Gap 18.5 mEq/L (5-15); Aspartate Amino Transferase 16 U/L (15-37); Bilirubin,Total 0.4 mg/dL (0.2-1.0); Blood Urea Nitrogen 53 mg/dL (7-18); Calcium 9.3 mg/dL (8.5-10.1); Carbon Dioxide 24 mmol/L (21.0-32.0); Chloride 94 mmol/L (98-107); Globulin 3.9 gm/dl (1.3-3.2); Glucose 83 mg/dL (74-106); Sodium 131 mmol/L (136-145); Thyroid Stimulating Hormone 2.97 uIU/ml (0.358-3.740); Total Protein,Serum 6.5 gm/dL (6.4-8.2)
[2019-07-04 12:56] LABS: Activated Partial Thrombo Time 31.8 seconds (23.6-34.0); INR 1.12 (0.9-1.1); Prothrombin Time 11.6 seconds (9.4-11.8)
[2019-07-04 13:40] LABS: Microscopic, Urine URINE MICROSCOPIC (MICROSCOPIC)
[2019-07-04 13:46] LABS: Appearance,Urine CLOUDY (Clear); Blood, Urine TRACE-I (Negative); Color,Urine YELLOW (Yellow); Glucose,Urine (UA) Negative (Negative); Ketones,Urine 1+ (Negative); Leukocyte Esterase,Urine 1+ (Negative); PH,Urine 5.5 (5.0-8.5); Protein,Urine 2+ (Negative); Specific Gravity, Urine 1.025 (1.005-1.030); Urobilinogen,Urine 0.2 EU/dl (0.2)
[2019-07-04 13:48] LABS: Bilirubin,Urine Negative (Negative)
[2019-07-04 14:06] LABS: Bacteria,Urine 4+ /lpf; RBC,Urine Occasional #/hpf (0-3); Squamous Epithelial Cell,Urine Occasional #/hpf (0-5)
--- NOTE | 2019-07-04 14:21 | Pharmacy Consult Notes ---
[facility] Pharmacy VTE Monitoring - Patient Demographics Admission date: 07/04/19 Report Date: 07/04/19 Time: 14:21 Allergies/Adverse Reactions: Patient Allergies levofloxacin [From Levaquin] Allergy (Intermediate, Verified 05/30/19 13:48) Rash Height: 1.65 m Weight: 63.503 kg Patient Problems: Current Active Problems RLL pneumonia (Acute) Diabetes mellitus, type 2 (Chronic) Sepsis (Acute) Congestive heart failure (Acute) Atrial flutter (Acute) - VTE Risk Labs: VTE Related Lab Results Hgb 12.1 g/dL (12.2-16.2) L 07/04/19 11:50 Hct 37.9 % (37.0-47.0) 07/04/19 11:50 Plt Count 432 K/mm3 (142-424) H 07/04/19 11:50 PT 11.6 seconds (9.4-11.8) 07/04/19 11:50 INR 1.12 (0.9-1.1) H 07/04/19 11:50 APTT 31.8 seconds (23.6-34.0) 07/04/19 11:50 BUN 53 mg/dL (7-18) H 07/04/19 11:50 Creatinine 2.13 mg/dL (0.55-1.02) H 07/04/19 11:50 Estimated Creat Clear 22 mL/min (50-200) 07/04/19 11:50 Clinical Trial Participant: No - Prophylaxis VTE Prophylaxis Ordered?: Yes Types of VTE Prophylaxis: TEDS Knee High
--- NOTE | 2019-07-04 15:17 | History & Physical Report ---
*Admission Date: 07/04/19 *Chief complaint: Shortness of breath *History of present illness: Ms. Robledo is a 79-year-old female with a history of left breast cancer, agoraphobia, COPD, aortic and bilateral iliac artery aneurysms with repair, coronary artery disease with stenting, and CHF who presented to [facility] with worsening cough and shortness of breath. She had been on Levaquin for 7 days at [facility] along with jose daniel amezquita. She states she just was unable to get her breath. O2 sats were lower even on oxygen. Her family became concerned when she had not improved and requested that she be brought to the emergency room for evaluation. With the evaluation in the emergency room she was felt to have a right lower lobe pneumonia. CT scan is pending at this time. O2 sats did improved while in the emergency room.Having failed outpatient treatment she was admitted for fur ther evaluation and ongoing treatment with Zosyn. Also BP has been low with systolic ranging from 75-107. She has received 1000ml fluid boluses x3. Family relates that she has not been eating for the last week. She has been taking fluids well though. Laboratory Tests 07/04/19 07/04/19 07/04/19 11:50 11:50 11:50 WBC 17.1 H Hgb 12.1 L Plt Count 432 H Neut % (Auto) 91.3 H Lymph % (Auto) 5.6 L Sodium 131 L Potassium 5.5 H Chloride 94 L BUN 53 H Creatinine 2.13 H Estimated GFR 22 L B-Natriuretic Peptide 333 H Digoxin 07/04/19 11:50 WBC Hgb Plt Count Neut % (Auto) Lymph % (Auto) Sodium Potassium Chloride BUN Creatinine Estimated GFR B-Natriuretic Peptide Digoxin 3.90 H* [facility] History Medical History: Reports:: Aneurysm, Anxiety, Atherosclerotic Heart Disease, Atrial Fibrillation, Cancer, Congestive Heart Failure, Chronic Obstructive Pulmonary Disease (COPD), Coronary Artery Disease, Depression, Diabetes Mellitus Type 2, Gastrointestinal Bleed, Home Oxygen, Hyperlipidemia, Hypertension, Lung Disease, Peripheral Artery Disease *Have you ever received a pneumonia vaccine?: No *Have you received a flu vaccine this season?: No Other Medical History: Reports: Anemia, Arthritis, Cataracts, Chemotherapy Laterality Cases: Left: Lumpectomy Other Surgeries: Yes: Cancer Surgery, Cardiac Catheterization, Coronary Stent, Other - *Social History Smoking Status: Former smoker #Yrs smoked (if former smoker): 53 Alcohol Intake: never Substance Use Type: denies use *Occupational Status:: disabled Housing: group home Household Members: other *Travel in the last 8 weeks: None - Psychiatric History Pschychiatric History:: Reports:: Anxiety, Depression, Psychiatric Treatment Family Hx:: Cancer, Coronary Artery Disease Review of Systems - Constitutional Denies fever(s), Denies headache(s) - Eyes Denies change in vision - ENT Reports dry mouth, Denies ear pain, Denies sore throat - *Cardiovascular Reports shortness of breath, Denies chest pain, Denies leg swelling, Denies rapid, pounding, or irregular heartbeat - *Respiratory Reports change in phlegm color, Reports chest congestion, Reports cough, Reports shortness of breath - *Gastrointestinal Reports constipation (On multiple meds), Denies abdominal pain, Denies change in stools, Denies heartburn, Denies nausea, Denies vomiting Comments: Family states that she has had no appetite for the last week - *Genitourinary Denies difficulty urinating (Decrease in urinary output) - *Musculoskeletal Reports joint pain (Bilateral lower legs and hips), Reports limited joint movement Comments: Has to have help to turn. - *Neurologic Reports weakness, Denies behavioral changes - Psychiatric Comments: Agroaphobia Meds Home Medications Medication Instructions Recorded Confirmed Type Digoxin 0.125 mg PO DAILY 02/05/18 07/04/19 History Enalapril Maleate 2.5 mg PO DAILY 02/05/18 07/04/19 History Ferrous Sulfate [Ferrous Sulfate 325 mg PO DAILY 02/05/18 07/04/19 History 325mg Tablet] Furosemide [Furosemide 40MG tAB] 40 mg PO DAILY 02/05/18 07/04/19 History Gabapentin [Gabapentin 100mg Cap] 100 mg PO TID 02/05/18 07/04/19 History Gluc Helms/MSM/Magnesium/Vit C 1 each PO DAILY 02/05/18 07/04/19 History [Glucosamine Complex-MSM Cap] Lactulose [Lactulose 10gm/15ml 20 gm PO DAILYP PRN 02/05/18 07/04/19 History Oral Soln] Metformin HCl [Glucophage 500mg 500 mg PO BID 02/05/18 07/04/19 History Tablet] Multivit,Iron,Min 5/Folic Acid 1 each PO DAILY 02/05/18 07/04/19 History [Strovite Forte Caplet] Potassium Chloride [Micro-K 10mEq 10 meq PO DAILY 02/05/18 07/04/19 History cap] Sennosides [Senna] 8.6 mg PO BID 02/05/18 07/04/19 History Sodium Chloride [Saline Nasal 1 spray NS TID 02/05/18 07/04/19 History [place]] Tramadol HCl [Ultram 50mg tablet] 50 mg PO BID 02/05/18 07/04/19 History Ubidecarenone [Coenzyme Q10] 100 mg PO DAILY 02/05/18 07/04/19 History risperiDONE [Risperdal 1mg Tablet] 1 mg PO BID 02/05/18 07/04/19 History Anastrozole 1 mg PO DAILY 02/06/18 07/04/19 History Fluticasone Propionate [Flonase 1 spr NS BID 02/06/18 07/04/19 History 50mcg nasal spray 16gm] acetaminophen 500 mg tablet 500 mg PO Q6H PRN 08/30/18 07/04/19 History pantoprazole 20 mg tablet,delayed 20 mg PO DAILY 08/30/18 07/04/19 History release prednisone 1 mg tablet 1 mg PO DAILY tab 08/30/18 07/04/19 History atorvastatin 20 mg tablet 20 mg PO DAILY 02/28/19 07/04/19 History rivaroxaban 20 mg tablet 20 mg PO DAILY 05/30/19 07/04/19 History Ipratropium/Albuterol Sulfate 3 ml IH TID 07/04/19 07/04/19 History [Duoneb 3mL neb] levoFLOXacin [Levofloxacin 750MG 750 mg PO DAILY 07/04/19 07/04/19 History Tablet] Allergies Allergy/AdvReac Type Severity Reaction Status Date / Time No Known Allergies Allergy Verified 07/04/19 14:40 Exam Vital signs and Labs for Last 24 Hours: Temp Pulse Resp BP Pulse Ox 98.8 F 85 22 83/40 L 93 L 07/04/19 11:34 07/04/19 13:33 07/04/19 13:24 07/04/19 14:33 07/04/19 13:24 Laboratory Results - last 24 hr 07/04/19 11:50: WBC 17.1 H, RBC 3.92 L, Hgb 12.1 L, Hct 37.9, MCV 96.9, MCH 30.8, MCHC 31.8, RDW 13.1, Plt Count 432 H, MPV 8.3, Neut % (Auto) 91.3 H, Lymph % (Auto) 5.6 L, [place] % (Auto) 2.3, Eos % (Auto) 0.3, Baso % (Auto) 0.5, Neut # (Auto) 15.6 H, Lymph # (Auto) 1.0, [place] # (Auto) 0.4, Eos # (Auto) 0.1, Baso # (Auto) 0.1, Total Counted 100, Neutrophils % (Manual) 75, Band Neutrophils % 3.0, Lymphocytes % (Manual) 15, Monocytes % (Manual) 2, Metamyelocytes % 3.0 H, Myelocytes % 2 H, Platelet Estimate Normal, Anisocytosis 1+, Debbie Cells 1+, Acanthocytes (Spur) 1+ 07/04/19 11:50: Sodium 131 L, Potassium 5.5 H, Chloride 94 L, Carbon Dioxide 24, Anion Gap 18.5 H, BUN 53 H, Creatinine 2.13 H, Estimated Creat Clear 22, Estimated GFR 22 L, Est GFR ( Amer) 27 L, Glucose 83, Calcium 9.3, Total Bilirubin 0.4, AST 16, ALT 16, Alkaline Phosphatase 67, Troponin I < 0.02, Total Protein 6.5, Albumin 2.6 L, Globulin 3.9 H, Albumin/Globulin Ratio 0.7 L, TSH 2.97 07/04/19 11:50: Lactate 0.9 07/04/19 11:50: B-Natriuretic Peptide 333 H 07/04/19 11:50: Troponin I Cancelled, Digoxin 3.90 H* 07/04/19 11:50: PT 11.6, INR 1.12 H, APTT 31.8 07/04/19 13:30: Urine Color Yellow, Urine Appearance Cloudy, Urine pH 5.5, Ur Specific [place] 1.025, Urine Protein 2+, Urine Glucose (UA) Negative, Urine Ketones 1+, Urine Blood Trace-i, Urine Nitrate Negative, Urine Bilirubin Negative, Urine Urobilinogen 0.2, Ur Leukocyte Esterase 1+ A, Urine RBC Occas ional, Urine WBC 10-20, Ur Squamous Epith Cells Occasional, Urine Bacteria 4+ I & O for Last 24 hours: Intake & Output 07/02/19 07/03/19 07/04/19 07/05/19 11:59 11:59 11:59 11:59 Weight 140 lb Radiology Reports for the Last 24 Hours: 07/04/2019 chest x-ray IMPRESSION: Chronic changes with cardiomegaly with worsening right lower lobe pneumonia. There is a faint lucency in the right lung base laterally which could be due to a a small pneumothorax versus a skin fold artifact. Follow-up recommended. Emergency Room was notified of this finding by telephone 07/04/2019 at 1:42 p.m. - Constitutional no acute distress Comments: Conversant - *Routine HEENT Exam Head: Present: normocephalic, atraumatic Eye: Present: PERRL. Absent: conjunctival icterus, scleral injection ENT: Present: mucous membranes moist, oropharynx clear, TM's clear bilaterally - *Routine Neck Exam Present: supple, lymphadenopathy. Absent: carotid bruit - *Routine Respiratory Exam Comments: Bilateral coarse rhonchi throughout with scattered wheezing. Very congested cough - *Routine Cardiovascular Exam Present: RRR - *Routine Abdominal Exam Present: soft, normoactive bowel sounds. Absent: tenderness - *Routine Extremities Exam Present: edema (Trace) - Detailed Breast Exam left Inspection: Present: swelling, peau d'orange Comments: Left breast has decreased in size since her last exam. Fluid is mostly at the end of the breast now and the upper breast is soft. Assessment and Plan (1) Congestive heart failure Current visit: Yes Status: Acute Category: Medical Code(s): I50.9 - Heart failure, unspecified (2) RLL pneumonia Current visit: Yes Status: Acute Category: Medical Code(s): J18.1 - Lobar pneumonia, unspecified organism (3) Diabetes mellitus, type 2 Current visit: Yes Status: Chronic Category: Medical Code(s): E11.9 - Type 2 diabetes mellitus without complications (4) Atrial fibrillation Current visit: No Status: Chronic Qualifiers: Atrial fibrillation type: chronic Category: Medical Code(s): I48.91 - Unspecified atrial fibrillation (5) Breast cancer, left Current visit: No Status: Chronic Category: Medical Code(s): C50.912 - Malignant neoplasm of unspecified site of left female breast (6) Coronary artery disease Current visit: No Status: Chronic Qualifiers: Coronary Disease-Associated Artery/Lesion type: [place] artery [place] vs. transplanted heart: [place] heart Associated angina: without angina Qualified Code(s): I25.10 - Atherosclerotic heart disease of [place] coronary artery witho ut angina pectoris Category: Medical Code(s): I25.10 - Atherosclerotic heart disease of [place] coronary artery without angina pectoris (7) Digitalis toxicity Current visit: Yes Status: Acute Category: Medical Code(s): T46.0X1A - Poisoning by cardiac-stimulant glycosides and drugs of similar action, accidental (unintentional), initial encounter (8) Renal insufficiency Current visit: Yes Status: Acute Category: Medical Code(s): N28.9 - Disorder of kidney and ureter, unspecified (9) Dehydration Current visit: Yes Status: Acute Category: Medical Code(s): E86.0 - Dehydration (10) Hypotension Current visit: Yes Status: Acute Category: Medical Code(s): I95.9 - Hypotension, unspecified (11) Hyperkalemia Current visit: Yes Status: Acute Category: Medical Code(s): E87.5 - Hyperkalemia - Assessment and plan all Dx Assessment and Plan for all problems:: Patient has been started on Zosyn. She will continue with duo nebs. Will stop digoxin and continue with IVF and duonebs.
--- NOTE | 2019-07-04 16:51 | Electrocardiograph Report ---
APPROVED REPORT Exam: Resting ECG HR:77 bpm ECG Measurements Heart Rate 77 AXES QRSd 64 QRS 117 QT 336 T-74 QTc 380 <Conclusion> Probable Atrial Fib with a Competing Junctional Rhythm ST & T wave abnormality, consider inferolateral ischemia Consider [place] Abnormal ECG Electronically signed by : Yo Peters, 07/04/2019 16:51:18
--- NOTE | 2019-07-04 19:39 | Sepsis Event Note ---
[facility] Tissue Perfusion Eval Sepsis Re-Evaluation Performed: Yes Date Performed: 07/04/19 Time Performed: 19:39
[2019-07-05 05:53] LABS: Basophils # 0.3 K/mm3 (0-0.2); Basophils % 1.3 % (0.1-2.0); Eosinophils # 0.2 K/mm3 (0.0-0.4); Eosinophils % 0.7 % (0.1-12.0); Hematocrit 37.2 % (37.0-47.0); Hemoglobin 11.5 g/dL (12.2-16.2); Lymphocytes # 0.7 K/mm3 (0.7-4.5); Lymphocytes % 2.5 % (10-50); Mean Corpuscular HGB Conc 30.9 g/dL (31.8-35.4); Mean Corpuscular Volume 98.9 fl (81-99); Mean Platelet Volume 7.8 fl (7.4-10.4); Monocytes # 0.7 K/mm3 (0.1-1.0); Monocytes % 2.8 % (1.7-9.3); Neutrophils # 24.3 K/mm3 (1.8-7.8); Neutrophils % 92.7 % (37.0-80.0); Platelet Count 442 K/mm3 (142-424); Red Blood Count 3.76 M/mm3 (4.20-5.40); Red Cell Distribution Width 13.1 % (11.5-17.5); White Blood Count 26.2 K/mm3 (4.8-10.8)
[2019-07-05 06:10] LABS: Albumin Level 2.4 gm/dL (3.4-5.0); Albumin/Globulin Ratio 0.8 (1.1-1.8); Anion Gap 25.4 mEq/L (5-15); Bilirubin,Total 0.3 mg/dL (0.2-1.0); Chol/HDL Ratio 2.5 (1-3.5); Globulin 3.1 gm/dl (1.3-3.2); Phosphorous 4.6 mg/dL (2.4-4.9); Total Protein,Serum 5.5 gm/dL (6.4-8.2)
[2019-07-05 06:14] LABS: Digoxin 2.71 ng/mL (0.90-2.00)
[2019-07-05 06:20] LABS: Calcium 7.3 mg/dL (8.5-10.1)
--- NOTE | 2019-07-05 06:21 | Progress Note ---
Internal Medicine - PN: Subj *Date: 07/05/19 *Time: 06:16 Interval history: Clinically Ms. Leger has not been in distress through the night but we have struggled to keep her blood pressure within a normal range. Predominantly she has remained in the 80s with her systolic pressure. At present her systolic reads 75. She is on levophed and vasopressin. She is at 30 mcg/min on Levophed and 0.04 units/min. She has received multiple fluid boluses through the night and her IV is running at 200 cc an hour. EKG appears to be an accelerated junctional rhythm. She does not appear to be edematous. Her tongue is still a bit dry. This despite her IV fluids. Earlier we were hesitant to institute vancomycin due to her renal function compromise, but vancomycin was initiated in addition to the Zosyn. On exam she is relatively alert and conversant. She says she is uncomfortable. She is not dyspneic. She has air movement in both lungs but with rhonchi heard in the right base more than in the left base. Her oxygen saturations have been in the low 90s. She does not appear to be holding much edema in her legs. Her abdomen is soft. Her family has been apprised of her situation. She will be seen in consultation by cardiology this morning. EKG was reviewed from this morning. Chest x-ray is pending. Troponin is ordered. Her magnesium level is low. Exam Vital signs and Labs for Last 24 Hours: Temp Pulse Resp BP Pulse Ox 98.5 F 84 23 98/47 L 97 07/05/19 05:45 07/05/19 06:00 07/05/19 06:00 07/05/19 06:00 07/05/19 06:00 Laboratory Results - last 24 hr 07/04/19 11:50: WBC 17.1 H, RBC 3.92 L, Hgb 12.1 L, Hct 37.9, MCV 96.9, MCH 30.8, MCHC 31.8, RDW 13.1, Plt Count 432 H, MPV 8.3, Neut % (Auto) 91.3 H, Lymph % (Auto) 5.6 L, [place] % (Auto) 2.3, Eos % (Auto) 0.3, Baso % (Auto) 0.5, Neut # (Auto) 15.6 H, Lymph # (Auto) 1.0, [place] # (Auto) 0.4, Eos # (Auto) 0.1, Baso # (Auto) 0.1, Total Counted 100, Neutrophils % (Manual) 75, Band Neutrophils % 3.0, Lymphocytes % (Manual) 15, Monocytes % (Manual) 2, Metamyelocytes % 3.0 H, Myelocytes % 2 H, Platelet Estimate Normal, Anisocytosis 1+, Debbie Cells 1+, Acanthocytes (Spur) 1+ 07/04/19 11:50: Sodium 131 L, Potassium 5.5 H, Chloride 94 L, Carbon Dioxide 24, Anion Gap 18.5 H, BUN 53 H, Creatinine 2.13 H, Estimated Creat Clear 22, Estimated GFR 22 L, Est GFR ( Amer) 27 L, Glucose 83, Calcium 9.3, Total Bilirubin 0.4, AST 16, ALT 16, Alkaline Phosphatase 67, Troponin I < 0.02, Total Protein 6.5, Albumin 2.6 L, Globulin 3.9 H, Albumin/Globulin Ratio 0.7 L, TSH 2.97 07/04/19 11:50: Lactate 0.9 07/04/19 11:50: B-Natriuretic Peptide 333 H 07/04/19 11:50: Troponin I Cancelled, Digoxin 3.90 H* 07/04/19 11:50: PT 11.6, INR 1.12 H, APTT 31.8 07/04/19 13:30: Urine Color Yellow, Urine Appearance Cloudy, Urine pH 5.5, Ur Specific [place] 1.025, Urine Protein 2+, Urine Glucose (UA) Negative, Urine Ketones 1+, Urine Blood Trace-i, Urine Nitrate Negative, Urine Bilirubin Negative, Urine Urobilinogen 0.2, Ur Leukocyte Esterase 1+ A, Urine RBC Occasional, Urine WBC 10-20, Ur Squamous Epith Cells Occasional, Urine Bacteria 4+ 07/04/19 18:47: POC Glucose 74 07/04/19 20:33: POC Glucose 98 07/05/19 05:15: POC Glucose 179 H 07/05/19 05:40: WBC 26.2 H* D, RBC 3.76 L, Hgb 11.5 L, Hct 37.2, MCV 98.9, MCH 30.6, MCHC 30.9 L, RDW 13.1, Plt Count 442 H, MPV 7.8, Neut % (Auto) 92.7 H, Lymph % (Auto) 2.5 L, [place] % (Auto) 2.8, Eos % (Auto) 0.7, Baso % (Auto) 1.3, Neut # (Auto) 24.3 H, Lymph # (Auto) 0.7, [place] # (Auto) 0.7, Eos # (Auto) 0.2, Baso # (Auto) 0.3 H 07/05/19 05:40: Sodium 133 L, Potassium 5.4 H, Chloride 98, Carbon Dioxide 15 L D, Anion Gap 25.4 H, BUN 46 H, Creatinine 2.10 H, Estimated Creat Clear 23, Estimated GFR 23 L, Est GFR ( Amer) 28 L, Glucose 166 H D, Phosphorus 4.6, Magnesium 0.7 L, Total Bilirubin 0.3, AST 9 L D, ALT 15, Alkaline Phosphatase 61, Total Protein 5.5 L, Albumin 2.4 L, Globulin 3.1, Albumin/Globulin Ratio 0.8 L, Triglycerides 90, Cholesterol 90 L, LDL Cholesterol 36, VLDL Cholesterol 18, HDL Cholesterol 36, Cholesterol/HDL Ratio 2.5, Digoxin 2.71 H* Laboratory Tests 07/04/19 07/04/19 07/05/19 11:50 11:50 05:40 WBC 17.1 H 26.2 H* D Sodium 131 L Potassium 5.5 H Anion Gap 18.5 H BUN 53 H Creatinine 2.13 H 07/05/19 05:40 WBC Sodium 133 L Potassium 5.4 H Anion Gap 25.4 H BUN 46 H Creatinine 2.10 H I & O for Last 24 hours: Intake & Output 07/02/19 07/03/19 07/04/19 07/05/19 11:59 11:59 11:59 11:59 Intake Total 3028.653 / 3028.653 Output Total 380 / 380 Balance 2648.653 / 2648.653 Weight 140 lb 142 lb 9 oz - Constitutional mild distress - *Routine HEENT Exam ENT: Present: mucous membranes dry (Tongue appears slightly dry) - *Routine Respiratory Exam Present: rhonchi (Right base. Air movement is pretty good however.) - *Routine Cardiovascular Exam Present: RRR - *Routine Abdominal Exam Present: soft. Absent: tenderness - *Routine Extremities Exam Present: edema (Trace) - *Routine Neurological Exam Present: alert (Seems alert and conversant.). Absent: motor deficit Assessment and Plan (1) RLL pneumonia Current visit: Yes Status: Acute Category: Medical Code(s): J18.1 - Lobar pneumonia, unspecified organism (2) Sepsis Current visit: Yes Status: Acute Category: Medical Code(s): A41.9 - Sepsis, unspecified organism (3) Sepsis associated hypotension Current visit: Yes Status: Acute Category: Medical Code(s): A41.9 - Sepsis, unspecified organism; I95.9 - Hypotension, unspecified (4) Congestive heart failure Current visit: Yes Status: Acute Category: Medical Code(s): I50.9 - Heart failure, unspecified (5) Diabetes mellitus, type 2 Current visit: Yes Status: Chronic Category: Medical Code(s): E11.9 - Type 2 diabetes mellitus without complications (6) Atrial fibrillation Current visit: No Status: Chronic Qualifiers: Atrial fibrillation type: chronic Category: Medical Code(s): I48.91 - Unspecified atrial fibrillation (7) Breast cancer, left Current visit: No Status: Chronic Category: Medical Code(s): C50.912 - Malignant neoplasm of unspecified site of left female breast (8) Coronary artery disease Current visit: No Status: Chronic Qualifiers: Coronary Disease-Associated Artery/Lesion type: [place] artery [place] vs. transplanted heart: [place] heart Associated angina: without angina Qualified Code(s): I25.10 - Atherosclerotic heart disease of [place] coronary artery without angina pectoris Category: Medical Code(s): I25.10 - Atherosclerotic heart disease of [place] coronary artery without angina pectoris (9) Digitalis toxicity Current visit: Yes Status: Acute Category: Medical Code(s): T46.0X1A - Poisoning by cardiac-stimulant glycosides and drugs of similar action, accidental (unintentional), initial encounter (10) Renal insufficiency Current visit: Yes Status: Acute Category: Medical Code(s): N28.9 - Disorder of kidney and ureter, unspecified (11) Dehydration Current visit: Yes Status: Acute Category: Medical Code(s): E86.0 - Dehydration (12) Hypotension Current visit: Yes Status: Acute Category: Medical Code(s): I95.9 - Hypotension, unspecified (13) Hyperkalemia Current visit: Yes Status: Acute Category: Medical Code(s): E87.5 - Hyperkalemia - Assessment and plan all Dx Assessment and Plan for all problems:: See notes above. As stated cardiology consultation will be obtained. Vasopressors are being adjusted. She is receiving combination antibiotics.
[2019-07-05 06:22] LABS: Lymphocytes % 16 % (10-50); Monocytes % 1 % (2-9); Neutrophils % 83 % (42-76); Total Cells Counted 100
[2019-07-05 06:23] LABS: Ovalocytes 1+
--- NOTE | 2019-07-05 08:25 | Consult Report ---
History of Present Illness Consult date: 07/05/19 Requesting physician: Peter Gutiérrez Chief complaint: sepsis Additional Medical History:: 1. A. fib, chronic A. Xarelto therapy 2. COPD with remote tobacco use 3. Remote history of lung CA, s/p a single dose of XRT 4. History of Breast CA, on fpc arimedex until recently per family, 06/2019 5. Agoraphobia 6. CAD, status post coronary stenting 7. PAD, history of aorto iliac stenting 8. Hypertension 9. Hyperlipidemia 10. DM, Type 2 A. CKD, stage 4 with Cr 2.1 and GFR 23, 06/2019 History of present illness: Ms. Robledo is a 79-year-old female with a history of left breast cancer, agoraphobia, COPD, aortic and bilateral iliac artery aneurysms with repair, coronary artery disease with stenting, and CHF who presented to [facility] with worsening cough and shortness of breath. She had been on Levaquin for 7 days at [facility] along with jose daniel amezquita. She states she just was unable to get her breath. O2 sats were lower even on oxygen. Her family became concerned when she had not improved and requested that she be brought to the emergency room for evaluation. With the evaluation in the emergency room she was felt to have a right lower lob e pneumonia. CT scan is pending at this time. O2 sats did improved while in the emergency room.Having failed outpatient treatment she was admitted for further evaluation and ongoing treatment with Zosyn. Also BP has been low with systolic ranging from 75-107. She has received 1000ml fluid boluses x3. Family relates that she has not been eating for the last week. She has been taking fluids well though. The above per Dr. Gutiérrez Cardiology consulted for evaluation in setting of sepsis and hypotension, currently on Vancomycin, Zosyn, Vasopressin and Levophed. Pt is asleep and no attempt to wake her was made at family request. All questions answered by and daughter. [facility] History Medical History: Reports:: Aneurysm, Anxiety, Atherosclerotic Heart Disease, Atrial Fibrillation, Cancer, Congestive Heart Failure, Chronic Obstructive Pulmonary Disease (COPD), Coronary Artery Disease, Depression, Diabetes Mellitus Type 2, Gastrointestinal Bleed, Home Oxygen, Hyperlipidemia, Hypertension, Lung Disease, Peripheral Artery Disease *Have you ever received a pneumonia vaccine?: Yes *Have you received a flu vaccine this season?: Yes Other Medical History: Reports: Anemia, Arthritis, Cataracts, Chemotherapy Laterality Cases: Left: Lumpectomy, Mastectomy Other Surgeries: Yes: Cancer Surgery, Cardiac Catheterization, Coronary Stent, Other - *Social History Educational Level: Attended College Smoking Status: Former smoker #Yrs smoked (if former smoker): 53 Alcohol Intake: former Alcohol Intake Frequency:: a few times a month Substance Use Type: denies use *Occupational Status:: disabled Housing: shelter Household Members: other *Travel in the last 8 weeks: None - Psychiatric History Pschychiatric History:: Reports:: Anxiety, Depression, Psychiatric Treatment Family Hx:: Unable to obtain Meds Home Medications Medication Instructions Recorded Confirmed Type Digoxin 0.125 mg PO DAILY 02/05/18 07/05/19 History Enalapril Maleate 2.5 mg PO DAILY 02/05/18 07/05/19 History Ferrous Sulfate [Ferrous Sulfate 325 mg PO DAILY 02/05/18 07/05/19 History 325mg Tablet] Furosemide [Furosemide 40MG tAB] 40 mg PO DAILY 02/05/18 07/05/19 History Gabapentin [Gabapentin 100mg Cap] 200 mg PO TID 02/05/18 07/05/19 History Gluc Helms/MSM/Magnesium/Vit C 1 each PO DAILY 02/05/18 07/05/19 History [Glucosamine Complex-MSM Cap] Lactulose [Lactulose 10gm/15ml 30 ml PO DAILYP PRN 02/05/18 07/05/19 History Oral Soln] Multivit,Iron,Min 5/Folic Acid 1 each PO DAILY 02/05/18 07/05/19 History [Strovite Forte Caplet] Potassium Chloride [Micro-K 10mEq 10 meq PO DAILY 02/05/18 07/05/19 History cap] Sennosides [Senna] 8.6 mg PO BID 02/05/18 07/05/19 History Sodium Chloride [Saline Nasal 1 spray NS Q1HP PRN 02/05/18 07/05/19 History [place]] Tramadol HCl [Ultram 50mg tablet] 50 mg PO TID 02/05/18 07/05/19 History Ubidecarenone [Coenzyme Q10] 100 mg PO DAILY 02/05/18 07/05/19 History risperiDONE [Risperdal 1mg Tablet] 1 mg PO BID 02/05/18 07/05/19 History Anastrozole 1 mg PO DAILY 02/06/18 07/05/19 History Fluticasone Propionate [Flonase 1 spr NS BID 02/06/18 07/05/19 History 50mcg nasal spray 16gm] acetaminophen 500 mg tablet 500 mg PO Q4HP PRN 08/30/18 07/05/19 History pantoprazole 20 mg tablet,delayed 20 mg PO DAILY 08/30/18 07/05/19 History release prednisone 1 mg tablet 1 mg PO DAILY tab 08/30/18 07/05/19 History atorvastatin 20 mg tablet 20 mg PO DAILY 02/28/19 07/05/19 History rivaroxaban 20 mg tablet 20 mg PO DAILY 05/30/19 07/05/19 History Ipratropium/Albuterol Sulfate 3 ml IH TID 07/04/19 07/04/19 History [Duoneb 3mL neb] levoFLOXacin [Levofloxacin 750MG 750 mg PO DAILY 07/04/19 07/05/19 History Tablet] Bisacodyl [Bisacodyl 10mg Supp] 10 mg RC DAILYP PRN 07/05/19 07/05/19 History Calcium Carbonate/Vitamin D3 1 each PO BID 07/05/19 07/05/19 History [Oyster Shell 250 mg + Vit D Tb] Guaifenesin/Dextromethorphan 10 ml PO Q4HP PRN 07/05/19 07/05/19 History [Robafen Dm Cough Liquid] Mag Carb/Aluminum Hydrox/Algin 30 ml PO TIDP PRN 07/05/19 07/05/19 History [Acid Gone Antacid Liquid] Metformin HCl 500 mg PO DAILY 07/05/19 07/05/19 History Na Phos,M-B/Na Phos,Di-Ba [Fleet 1 each RC DAILYP PRN 07/05/19 07/05/19 History Enema 133ml] Phenol [Throat [place]] 1 spray PO Q2HP PRN 07/05/19 07/05/19 History ondansetron HCL [Ondansetron HCl] 4 mg PO Q8HP PRN 07/05/19 07/05/19 History Allergies Allergy/AdvReac Type Severity Reaction Status Date / Time No Known Allergies Allergy Verified 07/04/19 14:40 Review of Systems - Review of Systems Review of systems:: unable to obtain - *Neurologic Reports weakness, Denies behavioral changes, Denies headache(s) Exam Vital signs and Labs for Last 24 Hours: Temp Pulse Resp BP Pulse Ox 98.5 F 77 20 94/31 L 100 07/05/19 05:45 07/05/19 07:45 07/05/19 07:45 07/05/19 07:45 07/05/19 07:45 Laboratory Results - last 24 hr 07/04/19 11:50: WBC 17.1 H, RBC 3.92 L, Hgb 12.1 L, Hct 37.9, MCV 96.9, MCH 30.8, MCHC 31.8, RDW 13.1, Plt Count 432 H, MPV 8.3, Neut % (Auto) 91.3 H, Lymph % (Auto) 5.6 L, [place] % (Auto) 2.3, Eos % (Auto) 0.3, Baso % (Auto) 0.5, Neut # (Auto) 15.6 H, Lymph # (Auto) 1.0, [place] # (Auto) 0.4, Eos # (Auto) 0.1, Baso # (Auto) 0.1, Total Counted 100, Neutrophils % (Manual) 75, Band Neutrophils % 3.0, Lymphocytes % (Manual) 15, Monocytes % (Manual) 2, Metamyelocytes % 3.0 H, Myelocytes % 2 H, Platelet Estimate Normal, Anisocytosis 1+, [place] Cells 1+, Acanthocytes (Spur) 1+ 07/04/19 11:50: Sodium 131 L, Potassium 5.5 H, Chloride 94 L, Carbon Dioxide 24, Anion Gap 18.5 H, BUN 53 H, Creatinine 2.13 H, Estimated Creat Clear 22, Estimated GFR 22 L, Est GFR ( Amer) 27 L, Glucose 83, Calcium 9.3, Total Bilirubin 0.4, AST 16, ALT 16, Alkaline Phosphatase 67, Troponin I < 0.02, Total Protein 6.5, Albumin 2.6 L, Globulin 3.9 H, Albumin/Globulin Ratio 0.7 L, TSH 2.97 07/04/19 11:50: Lactate 0.9 07/04/19 11:50: B-Natriuretic Peptide 333 H 07/04/19 11:50: Troponin I Cancelled, Digoxin 3.90 H* 07/04/19 11:50: PT 11.6, INR 1.12 H, APTT 31.8 07/04/19 13:30: Urine Color Yellow, Urine Appearance Cloudy, Urine pH 5.5, Ur Specific [place] 1.025, Urine Protein 2+, Urine Glucose (UA) Negative, Urine Ketones 1+, Urine Blood Trace-i, Urine Nitrate Negative, Urine Bilirubin Negative, Urine Urobilinogen 0.2, Ur Leukocyte Esterase 1+ A, Urine RBC Occasional, Urine WBC 10-20, Ur Squamous Epith Cells Occasional, Urine Bacteria 4+ 07/04/19 18:47: POC Glucose 74 07/04/19 20:33: POC Glucose 98 07/05/19 05:15: POC Glucose 179 H 07/05/19 05:40: WBC 26.2 H* D, RBC 3.76 L, Hgb 11.5 L, Hct 37.2, MCV 98.9, MCH 30.6, MCHC 30.9 L, RDW 13.1, Plt Count 442 H, MPV 7.8, Neut % (Auto) 92.7 H, Lymph % (Auto) 2.5 L, [place] % (Auto) 2.8, Eos % (Auto) 0.7, Baso % (Auto) 1.3, Neut # (Auto) 24.3 H, Lymph # (Auto) 0.7, [place] # (Auto) 0.7, Eos # (Auto) 0.2, Baso # (Auto) 0.3 H, Total Counted 100, Neutrophils % (Manual) 83 H, Lymphocytes % (Manual) 16, Monocytes % (Manual) 1 L, Platelet Estimate Normal, Ovalocytes 1+, Acanthocytes (Spur) 1+ 07/05/19 05:40: Sodium 133 L, Potassium 5.4 H, Chloride 98, Carbon Dioxide 15 L D, Anion Gap 25.4 H, BUN 46 H, Creatinine 2.10 H, Estimated Creat Clear 23, Estimated GFR 23 L, Est GFR ( Amer) 28 L, Glucose 166 H D, Calcium 7.3 L D, Phosphorus 4.6, Magnesium 0.7 L, Total Bilirubin 0.3, AST 9 L D, ALT 15, Alkaline Phosphatase 61, Total Protein 5.5 L, Albumin 2.4 L, Globulin 3.1, Albumin/Globulin Ratio 0.8 L, Triglycerides 90, Cholesterol 90 L, LDL Cholesterol 36, VLDL Cholesterol 18, HDL Cholesterol 36, Cholesterol/HDL Ratio 2.5, Digoxin 2.71 H* 07/05/19 05:40: Troponin I 0.04 I & O for Last 24 hours: Intake & Output 07/02/19 07/03/19 07/04/19 07/05/19 11:59 11:59 11:59 11:59 Intake Total 6469.653 / 6469.653 Output Total 450 / 450 Balance 6019.653 / 6019.653 Weight 140 lb 142 lb 9 oz - *Routine Respiratory Exam Present: decreased breath sounds, CTA bilaterally, diminished air movement. Absent: accessory muscle use, rales, rhonchi, wheezes - *Routine Cardiovascular Exam Present: RRR. Absent: murmur, gallop, rubs - *Routine Extremities Exam Present: edema. Absent: calf tenderness Assessment and Plan (1) RLL pneumonia Current visit: Yes Status: Acute Category: Medical Code(s): J18.1 - Lobar pneumonia, unspecified organism (2) Sepsis Current visit: Yes Status: Acute Category: Medical Code(s): A41.9 - Sepsis, unspecified organism (3) Sepsis associated hypotension Current visit: Yes Status: Acute Category: Medical Code(s): A41.9 - Sepsis, unspecified organism; I95.9 - Hypotension, unspecified (4) Congestive heart failure Current visit: Yes Status: Acute Category: Medical Code(s): I50.9 - Heart failure, unspecified (5) Diabetes mellitus, type 2 Current visit: Yes Status: Chronic Category: Medical Code(s): E11.9 - Type 2 diabetes mellitus without complications (6) Atrial fibrillation Current visit: No Status: Chronic Qualifiers: Atrial fibrillation type: chronic Category: Medical Code(s): I48.91 - Unspecified atrial fibrillation (7) Breast cancer, left Current visit: No Status: Chronic Category: Medical Code(s): C50.912 - Malignant neoplasm of unspecified site of left female breast (8) Coronary artery disease Current visit: No Status: Chronic Qualifiers: Coronary Disease-Associated Artery/Lesion type: [place] artery [place] vs. transplanted heart: [place] heart Associated angina: without angina Qualified Code(s): I25.10 - Atherosclerotic heart disease of [place] coronary artery without angina pectoris Category: Medical Code(s): I25.10 - Atherosclerotic heart disease of [place] coronary artery without angina pectoris (9) Digitalis toxicity Current visit: Yes Status: Acute Category: Medical Code(s): T46.0X1A - Poisoning by cardiac-stimulant glycosides and drugs of similar action, accidental (unintentional), initial encounter (10) Renal insufficiency Current visit: Yes Status: Acute Category: Medical Code(s): N28.9 - Disorder of kidney and ureter, unspecified (11) Dehydration Current visit: Yes Status: Acute Category: Medical Code(s): E86.0 - Dehydration (12) Hypotension Current visit: Yes Status: Acute Category: Medical Code(s): I95.9 - Hypotension, unspecified (13) Hyperkalemia Current visit: Yes Status: Acute Category: Medical Code(s): E87.5 - Hyperkalemia - Assessment and plan all Dx Assessment and Plan for all problems:: 1. Poor prognosis with sepsis and hypotension on dual antibiotics and vasopressor agents. Continue current medications in addition to IV fluids. Consider addition of steroids for possible adrenal insufficiency (history of low dose prednisone use). 2. Echo (preliminary) shows preserved LVEF. Official report pending. Suspect some component of diastolic dysfunction in setting of COPD. 3. Discussed DNR measures or medication only code status due to frail condition. 4. Multiple medical problems including CAD, DM, prior cancer, low protein state due to not eating, CKD and COPD complicating current issues.
--- NOTE | 2019-07-05 08:32 | Pharmacy Consult Notes ---
- Pharmacy Consult Date: 07/05/19 Time: 08:29 Referring provider: DR. TAN Reason for Consult:: VANCOMYCIN DOSING Allergies and ADEs:: Allergies Allergy/AdvReac Type Severity Reaction Status Date / Time No Known Allergies Allergy Verified 07/04/19 14:40 Home Medications:: Home Medications Medication Instructions Recorded Confirmed Type Digoxin 0.125 mg PO DAILY 02/05/18 07/05/19 History Enalapril Maleate 2.5 mg PO DAILY 02/05/18 07/05/19 History Ferrous Sulfate [Ferrous Sulfate 325 mg PO DAILY 02/05/18 07/05/19 History 325mg Tablet] Furosemide [Furosemide 40MG tAB] 40 mg PO DAILY 02/05/18 07/05/19 History Gabapentin [Gabapentin 100mg Cap] 200 mg PO TID 02/05/18 07/05/19 History Gluc Helms/MSM/Magnesium/Vit C 1 each PO DAILY 02/05/18 07/05/19 History [Glucosamine Complex-MSM Cap] Lactulose [Lactulose 10gm/15ml 30 ml PO DAILYP PRN 02/05/18 07/05/19 History Oral Soln] Multivit,Iron,Min 5/Folic Acid 1 each PO DAILY 02/05/18 07/05/19 History [Strovite Forte Caplet] Potassium Chloride [Micro-K 10mEq 10 meq PO DAILY 02/05/18 07/05/19 History cap] Sennosides [Senna] 8.6 mg PO BID 02/05/18 07/05/19 History Sodium Chloride [Saline Nasal 1 spray NS Q1HP PRN 02/05/18 07/05/19 History [place]] Tramadol HCl [Ultram 50mg tablet] 50 mg PO TID 02/05/18 07/05/19 History Ubidecarenone [Coenzyme Q10] 100 mg PO DAILY 02/05/18 07/05/19 History risperiDONE [Risperdal 1mg Tablet] 1 mg PO BID 02/05/18 07/05/19 History Anastrozole 1 mg PO DAILY 02/06/18 07/05/19 History Fluticasone Propionate [Flonase 1 spr NS BID 02/06/18 07/05/19 History 50mcg nasal spray 16gm] acetaminophen 500 mg tablet 500 mg PO Q4HP PRN 08/30/18 07/05/19 History pantoprazole 20 mg tablet,delayed 20 mg PO DAILY 08/30/18 07/05/19 History release prednisone 1 mg tablet 1 mg PO DAILY tab 08/30/18 07/05/19 History atorvastatin 20 mg tablet 20 mg PO DAILY 02/28/19 07/05/19 History rivaroxaban 20 mg tablet 20 mg PO DAILY 05/30/19 07/05/19 History Ipratropium/Albuterol Sulfate 3 ml IH TID 07/04/19 07/04/19 History [Duoneb 3mL neb] levoFLOXacin [Levofloxacin 750MG 750 mg PO DAILY 07/04/19 07/05/19 History Tablet] Bisacodyl [Bisacodyl 10mg Supp] 10 mg RC DAILYP PRN 07/05/19 07/05/19 History Calcium Carbonate/Vitamin D3 1 each PO BID 07/05/19 07/05/19 History [Oyster Shell 250 mg + Vit D Tb] Guaifenesin/Dextromethorphan 10 ml PO Q4HP PRN 07/05/19 07/05/19 History [Robafen Dm Cough Liquid] Mag Carb/Aluminum Hydrox/Algin 30 ml PO TIDP PRN 07/05/19 07/05/19 History [Acid Gone Antacid Liquid] Metformin HCl 500 mg PO DAILY 07/05/19 07/05/19 History Na Phos,M-B/Na Phos,Di-Ba [Fleet 1 each RC DAILYP PRN 07/05/19 07/05/19 History Enema 133ml] Phenol [Throat [place]] 1 spray PO Q2HP PRN 07/05/19 07/05/19 History ondansetron HCL [Ondansetron HCl] 4 mg PO Q8HP PRN 07/05/19 07/05/19 History Height: 1.68 m Weight: 64.665 kg Laboratory Results:: Laboratory Results - last 24 hr 07/04/19 11:50: WBC 17.1 H, RBC 3.92 L, Hgb 12.1 L, Hct 37.9, MCV 96.9, MCH 30. 8, MCHC 31.8, RDW 13.1, Plt Count 432 H, MPV 8.3, Neut % (Auto) 91.3 H, Lymph % (Auto) 5.6 L, [place] % (Auto) 2.3, Eos % (Auto) 0.3, Baso % (Auto) 0.5, Neut # (Auto) 15.6 H, Lymph # (Auto) 1.0, [place] # (Auto) 0.4, Eos # (Auto) 0.1, Baso # (Auto) 0.1, Total Counted 100, Neutrophils % (Manual) 75, Band Neutrophils % 3.0, Lymphocytes % (Manual) 15, Monocytes % (Manual) 2, Metamyelocytes % 3.0 H, Myelocytes % 2 H, Platelet Estimate Normal, Anisocytosis 1+, [place] Cells 1+, Acanthocytes (Spur) 1+ 07/04/19 11:50: Sodium 131 L, Potassium 5.5 H, Chloride 94 L, Carbon Dioxide 24, Anion Gap 18.5 H, BUN 53 H, Creatinine 2.13 H, Estimated Creat Clear 22, Estimated GFR 22 L, Est GFR ( Amer) 27 L, Glucose 83, Calcium 9.3, Total Bilirubin 0.4, AST 16, ALT 16, Alkaline Phosphatase 67, Troponin I < 0.02, Total Protein 6.5, Albumin 2.6 L, Globulin 3.9 H, Albumin/Globulin Ratio 0.7 L, TSH 2.97 07/04/19 11:50: Lactate 0.9 07/04/19 11:50: B-Natriuretic Peptide 333 H 07/04/19 11:50: Troponin I Cancelled, Digoxin 3.90 H* 07/04/19 11:50: PT 11.6, INR 1.12 H, APTT 31.8 07/04/19 13:30: Urine Color Yellow, Urine Appearance Cloudy, Urine pH 5.5, Ur Specific [place] 1.025, Urine Protein 2+, Urine Glucose (UA) Negative, Urine Ketones 1+, Urine Blood Trace-i, Urine Nitrate Negative, Urine Bilirubin Negative, Urine Urobilinogen 0.2, Ur Leukocyte Esterase 1+ A, Urine RBC Occasional, Urine WBC 10-20, Ur Squamous Epith Cells Occasional, Urine Bacteria 4+ 07/04/19 18:47: POC Glucose 74 07/04/19 20:33: POC Glucose 98 07/05/19 05:15: POC Glucose 179 H 07/05/19 05:40: WBC 26.2 H* D, RBC 3.76 L, Hgb 11.5 L, Hct 37.2, MCV 98.9, MCH 30.6, MCHC 30.9 L, RDW 13.1, Plt Count 442 H, MPV 7.8, Neut % (Auto) 92.7 H, Lymph % (Auto) 2.5 L, [place] % (Auto) 2.8, Eos % (Auto) 0.7, Baso % (Auto) 1.3, Neut # (Auto) 24.3 H, Lymph # (Auto) 0.7, [place] # (Auto) 0.7, Eos # (Auto) 0.2, Baso # (Auto) 0.3 H, Total Counted 100, Neutrophils % (Manual) 83 H, Lymphocytes % (Manual) 16, Monocytes % (Manual) 1 L, Platelet Estimate Normal, Ovalocytes 1+, Acanthocytes (Spur) 1+ 07/05/19 05:40: Sodium 133 L, Potassium 5.4 H, Chloride 98, Carbon Dioxide 15 L D, Anion Gap 25.4 H, BUN 46 H, Creatinine 2.10 H, Estimated Creat Clear 23, Estimated GFR 23 L, Est GFR ( Amer) 28 L, Glucose 166 H D, Calcium 7.3 L D, Phosphorus 4.6, Magnesium 0.7 L, Total Bilirubin 0.3, AST 9 L D, ALT 15, Alkaline Phosphatase 61, Total Protein 5.5 L, Albumin 2.4 L, Globulin 3.1, Albumin/Globulin Ratio 0.8 L, Triglycerides 90, Cholesterol 90 L, LDL Ch olesterol 36, VLDL Cholesterol 18, HDL Cholesterol 36, Cholesterol/HDL Ratio 2.5, Digoxin 2.71 H* 07/05/19 05:40: Troponin I 0.04 Medical History: Reports:: Aneurysm, Anxiety, Atherosclerotic Heart Disease, Atrial Fibrillation, Cancer, Congestive Heart Failure, Chronic Obstructive Pulmonary Disease (COPD), Coronary Artery Disease, Depression, Diabetes Mellitus Type 2, Gastrointestinal Bleed, Home Oxygen, Hyperlipidemia, Hypertension, Lung Disease, Peripheral Artery Disease Assessment and Plan (1) RLL pneumonia Current visit: Yes Status: Acute Category: Medical Code(s): J18.1 - Lobar pneumonia, unspecified organism (2) Sepsis Current visit: Yes Status: Acute Category: Medical Code(s): A41.9 - Sepsis, unspecified organism (3) Sepsis associated hypotension Current visit: Yes Status: Acute Category: Medical Code(s): A41.9 - Sepsis, unspecified organism; I95.9 - Hypotension, unspecified (4) Congestive heart failure Current visit: Yes Status: Acute Category: Medical Code(s): I50.9 - Heart failure, unspecified (5) Diabetes mellitus, type 2 Current visit: Yes Status: Chronic Category: Medical Code(s): E11.9 - Type 2 diabetes mellitus without complications (6) Atrial fibrillation Current visit: No Status: Chronic Qualifiers: Category: Medical Code(s): I48.91 - Unspecified atrial fibrillation (7) Breast cancer, left Current visit: No Status: Chronic Category: Medical Code(s): C50.912 - Malignant neoplasm of unspecified site of left female breast (8) Coronary artery disease Current visit: No Status: Chronic Qualifiers: Qualified Code(s): I25.10 - Atherosclerotic heart disease of [place] coronary artery without angina pectoris Category: Medical Code(s): I25.10 - Atherosclerotic heart disease of [place] coronary artery without angina pectoris (9) Digitalis toxicity Current visit: Yes Status: Acute Category: Medical Code(s): T46.0X1A - Poisoning by cardiac-stimulant glycosides and drugs of similar action, accidental (unintentional), initial encounter (10) Renal insufficiency Current visit: Yes Status: Acute Category: Medical Code(s): N28.9 - Disorder of kidney and ureter, unspecified (11) Dehydration Current visit: Yes Status: Acute Category: Medical Code(s): E86.0 - Dehydration (12) Hypotension Current visit: Yes Status: Acute Category: Medical Code(s): I95.9 - Hypotension, unspecified (13) Hyperkalemia Current visit: Yes Status: Acute Category: Medical Code(s): E87.5 - Hyperkalemia - Assessment and plan all Dx Assessment and Plan for all problems:: STARTING WITH VANCOMYCIN 1 GM Q36H AT THIS TIME. PATIENT CONCURRENTLY RECEIVING VANCOMYCIN AND ZOSYN. WATCHING TROUGH AND RENAL FUNCTION CLOSELY WITH THIS COMBINATION. MD WAS CONSULTED ABOUT CONCURRENT USE YESTERDAY BUT WANTS TO CONTINUE WITH COMBO. PHARMACY WILL FOLLOW DAILY AND ADJUST APPROPRIATE.
--- NOTE | 2019-07-05 13:46 | Electrocardiograph Report ---
APPROVED REPORT Exam: Resting ECG HR:94 bpm ECG Measurements Heart Rate 94 AXES QRSd 98 QRS -67 QT 324 T119 QTc 405 <Conclusion> Accelerated Junctional rhythm Left axis deviation LBBB Abnormal ECG Electronically signed by : Yo Peters, 07/05/2019 13:46:19
[2019-07-06 06:42] LABS: Basophils # 0.2 K/mm3 (0-0.2); Basophils % 0.7 % (0.1-2.0); Eosinophils # 0.1 K/mm3 (0.0-0.4); Eosinophils % 0.3 % (0.1-12.0); Hemoglobin 11.1 g/dL (12.2-16.2); Lymphocytes # 0.7 K/mm3 (0.7-4.5); Lymphocytes % 2.3 % (10-50); Mean Corpuscular HGB Conc 30.8 g/dL (31.8-35.4); Mean Corpuscular Volume 99.7 fl (81-99); Mean Platelet Volume 7.8 fl (7.4-10.4); Monocytes # 0.7 K/mm3 (0.1-1.0); Monocytes % 2.4 % (1.7-9.3); Neutrophils # 28.3 K/mm3 (1.8-7.8); Neutrophils % 94.4 % (37.0-80.0); Platelet Count 363 K/mm3 (142-424); Red Blood Count 3.61 M/mm3 (4.20-5.40); Red Cell Distribution Width 13.5 % (11.5-17.5)
[2019-07-06 06:46] LABS: Anion Gap 17.1 mEq/L (5-15); Calcium 7.1 mg/dL (8.5-10.1)
--- NOTE | 2019-07-06 07:55 | Progress Note ---
Internal Medicine - PN: Subj *Date: 07/06/19 *Time: 07:52 Interval history: Nursing staff states the patient is maxed on her Levophed and vasopressin drips. Her pressures are still low but have improved some from yesterday. She has been in and out of numerous different heart rhythms. Nursing states she has been awake off and on and does talk, although this morning, she is sleeping and does not wake for exam. Exam Vital signs and Labs for Last 24 Hours: Temp Pulse Resp BP Pulse Ox 97.6 F 79 26 H 105/43 L 93 L 07/06/19 02:00 07/06/19 06:18 07/06/19 06:15 07/06/19 06:15 07/06/19 06:18 Laboratory Results - last 24 hr 07/04/19 13:30: Urine Color Yellow, Urine Appearance Cloudy, Urine pH 5.5, Ur Specific [place] 1.025, Urine Protein 2+, Urine Glucose (UA) Negative, Urine Ketones 1+, Urine Blood Trace-i, Urine Nitrate Negative, Urine Bilirubin Negative, Urine Urobilinogen 0.2, Ur Leukocyte Esterase 1+ A, Urine RBC Occasional, Urine WBC 10-20, Ur Squamous Epith Cells Occasional, Urine Bacteria 4+ 07/05/19 11:09: POC Glucose 207 H 07/05/19 16:21: POC Glucose 219 H 07/05/19 20:42: POC Glucose 215 H 07/06/19 06:20: WBC 30.0 H*, RBC 3.61 L, Hgb 11.1 L, Hct 36.0 L, MCV 99.7 H, MCH 30.7, MCHC 30.8 L, RDW 13.5, Plt Count 363, MPV 7.8, Neut % (Auto) 94.4 H, Lymph % (Auto) 2.3 L, [place] % (Auto) 2.4, Eos % (Auto) 0.3, Baso % (Auto) 0.7, Neut # (Auto) 28.3 H, Lymph # (Auto) 0.7, [place] # (Auto) 0.7, Eos # (Auto) 0.1, Baso # (Auto) 0.2 07/06/19 06:20: Sodium 130 L, Potassium 4.1 D, Chloride 98, Carbon Dioxide 19 L D, Anion Gap 17.1 H, BUN 46 H, Creatinine 2.10 H, Estimated Creat Clear 24, Estimated GFR 23 L, Est GFR ( Amer) 28 L, Glucose 246 H, Calcium 7.1 L I & O for Last 24 hours: Intake & Output 07/03/19 07/04/19 07/05/19 07/06/19 11:59 11:59 11:59 11:59 Intake Total 7186.653 / 7186.653 5913.655 / 5913.655 Output Total 525 / 525 395 / 395 Balance 6661.653 / 6661.653 5518.655 / 5518.655 Weight 140 lb 142 lb 9 oz 154 lb 8 oz Microbiology Reports for the Last 24 Hours: Microbiology 07/04/19 13:30 Urine,Catheterized Urine Culture - Final Escherichia coli - Constitutional no acute distress (sleeping) - *Routine Respiratory Exam Present: rales (bibasilar). Absent: wheezes - *Routine Cardiovascular Exam Present: irregularly irregular - *Routine Abdominal Exam Present: soft, normoactive bowel sounds. Absent: tenderness - *Routine Extremities Exam Present: edema (trace edema bilateral LE's). Absent: cyanosis, clubbing - *Routine Skin Exam Present: warm. Absent: rash - *Routine Neurological Exam Pt is sleeping this am Assessment and Plan (1) RLL pneumonia Current visit: Yes Status: Acute Category: Medical Code(s): J18.1 - Lobar pneumonia, unspecified organism (2) Sepsis Current visit: Yes Status: Acute Category: Medical Code(s): A41.9 - Sepsis, unspecified organism (3) Sepsis associated hypotension Current visit: Yes Status: Acute Category: Medical Code(s): A41.9 - Sepsis, unspecified organism; I95.9 - Hypotension, unspecified (4) Congestive heart failure Current visit: Yes Status: Acute Category: Medical Code(s): I50.9 - Heart failure, unspecified (5) Diabetes mellitus, type 2 Current visit: Yes Status: Chronic Category: Medical Code(s): E11.9 - Type 2 diabetes mellitus without complications (6) Atrial fibrillation Current visit: No Status: Chronic Qualifiers: Atrial fibrillation type: chronic Category: Medical Code(s): I48.91 - Unspecified atrial fibrillation (7) Breast cancer, left Current visit: No Status: Chronic Category: Medical Code(s): C50.912 - Malignant neoplasm of unspecified site of left female breast (8) Coronary artery disease Current visit: No Status: Chronic Qualifiers: Coronary Disease-Associated Artery/Lesion type: [place] artery [place] vs. transplanted heart: [place] heart Associated angina: without angina Qualified Code(s): I25.10 - Atherosclerotic heart disease of [place] coronary artery withou t angina pectoris Category: Medical Code(s): I25.10 - Atherosclerotic heart disease of [place] coronary artery without angina pectoris (9) Digitalis toxicity Current visit: Yes Status: Acute Category: Medical Code(s): T46.0X1A - Poisoning by cardiac-stimulant glycosides and drugs of similar action, accidental (unintentional), initial encounter (10) Renal insufficiency Current visit: Yes Status: Acute Category: Medical Code(s): N28.9 - Disorder of kidney and ureter, unspecified (11) Dehydration Current visit: Yes Status: Acute Category: Medical Code(s): E86.0 - Dehydration (12) Hypotension Current visit: Yes Status: Acute Category: Medical Code(s): I95.9 - Hypotension, unspecified (13) Hyperkalemia Current visit: Yes Status: Acute Category: Medical Code(s): E87.5 - Hyperkalemia (14) E. coli UTI Current visit: Yes Status: Acute Category: Medical Code(s): N39.0 - Urinary tract infection, site not specified; B96.20 - Unspecified Escherichia coli [E. coli] as the cause of diseases classified elsewhere - Assessment and plan all Dx Assessment and Plan for all problems:: White blood cell count has increased, however patient was started on steroids yesterday. She is maxed on the Levophed and vasopressin drips and still continues to have low blood pressures. Her urine culture came back positive for an E. coli urinary tract infection that sensitive to the Zosyn. Her renal function is about the same. Her potassium has normalized but her sodium has decreased. Will discuss further care with Dr. Gutiérrez. Cardiology to continue to follow.
[2019-07-06 08:41] LABS: Lymphocytes % 3 % (10-50); Monocytes % 5 % (2-9); Neutrophils % 92 % (42-76); Total Cells Counted 100
[2019-07-06 08:42] LABS: Hypochromasia 1+
--- NOTE | 2019-07-06 09:02 | Electrocardiograph Report ---
APPROVED REPORT Exam: Resting ECG HR:83 bpm ECG Measurements Heart Rate 83 AXES QRSd 60 QRS 86 QT 298 T239 QTc 350 <Conclusion> Demand pacemaker, interpretation is based on intrinsic rhythm Undetermined rhythm Low voltage QRS Septal infarct, age undetermined ST & T wave abnormality, consider inferolateral ischemia Abnormal ECG Electronically signed by : Aniceto Burks, 07/06/2019 09:02:34
[2019-07-06 09:40] LABS: Vancomycin,Trough 6.9 mcg/ml (10.0-20.0)
--- NOTE | 2019-07-06 13:25 | Progress Note ---
Subjective Date: 07/06/19 Time: 13:21 Principal diagnosis: sepsis, hypotension Interval history: 79-year-old white female in bed. More awake today and able to converse. Patient complaining of shortness of breath but denies any chest pain. Patient is still on maximum dose of vasopressin and Levophed. Antibiotics have been adjusted according to culture results. IV fluids have been reduced 200 mg/h with about 300 of urine output since IV Lasix given earlier this morning. Telemetry continues to show atrial fibrillation with intermittent tachycardia and aberrancy. Exam Vital signs and Labs for Last 24 Hours: Temp Pulse Resp BP Pulse Ox 97.6 F 90 15 102/60 L 90 L 07/06/19 12:00 07/06/19 11:00 07/06/19 11:00 07/06/19 12:44 07/06/19 11:00 Laboratory Results - last 24 hr 07/05/19 16:21: POC Glucose 219 H 07/05/19 20:42: POC Glucose 215 H 07/06/19 05:40: POC Glucose 251 H 07/06/19 06:20: WBC 30.0 H*, RBC 3.61 L, Hgb 11.1 L, Hct 36.0 L, MCV 99.7 H, MCH 30.7, MCHC 30.8 L, RDW 13.5, Plt Count 363, MPV 7.8, Neut % (Auto) 94.4 H, Lymph % (Auto) 2.3 L, [place] % (Auto) 2.4, Eos % (Auto) 0.3, Baso % (Auto) 0.7, Neut # (Auto) 28.3 H, Lymph # (Auto) 0.7, [place] # (Auto) 0.7, Eos # (Auto) 0.1, Baso # (Auto) 0.2, Total Counted 100, Neutrophils % (Manual) 92 H, Lymphocytes % (Manual) 3 L, Monocytes % (Manual) 5, Platelet Estimate Slight decrease, Hypochromasia 1+, [place]bbie Cells 1+ 07/06/19 06:20: Sodium 130 L, Potassium 4.1 D, Chloride 98, Carbon Dioxide 19 L D, Anion Gap 17.1 H, BUN 46 H, Creatinine 2.10 H, Estimated Creat Clear 24, Estimated GFR 23 L, Est GFR ( Amer) 28 L, Glucose 246 H, Calcium 7.1 L 07/06/19 08:54: Creatinine 2.10 H, Estimated Creat Clear 24, Estimated GFR 23 L, Est GFR ( Amer) 28 L, Vancomycin Trough 6.9 L 07/06/19 11:20: POC Glucose 170 H I & O for Last 24 hours: Intake & Output 07/04/19 07/05/19 07/06/19 07/07/19 11:59 11:59 11:59 11:59 Intake Total 7186.653 / 7186.653 6171.655 / 6171.655 Output Total 525 / 525 395 / 395 Balance 6661.653 / 6661.653 5776.655 / 5776.655 Weight 140 lb 142 lb 9 oz 154 lb 8 oz Microbiology Reports for the Last 24 Hours: Microbiology 07/04/19 11:50 Blood Blood Culture - Preliminary NO GROWTH AFTER 48 HOURS 07/04/19 11:50 Blood Blood Culture - Preliminary NO GROWTH AFTER 48 HOURS 07/04/19 13:30 Urine,Catheterized Urine Culture - Final Escherichia coli - *Routine Respiratory Exam Present: rales, crackles, diminished air movement. Absent: accessory muscle use, rhonchi, wheezes - *Routine Cardiovascular Exam Present: tachycardia, irregularly irregular. Absent: murmur, gallop, rubs - *Routine Extremities Exam Present: edema. Absent: calf tenderness - *Routine Neurological Exam Present: alert, oriented X3, moving all extremities Progress Note: A&P (1) RLL pneumonia Status: Acute Current Visit: Yes (2) Sepsis Status: Acute Current Visit: Yes (3) Sepsis associated hypotension Status: Acute Current Visit: Yes (4) Congestive heart failure Status: Acute Current Visit: Yes (5) Diabetes mellitus, type 2 Status: Chronic Current Visit: Yes (6) Atrial fibrillation Status: Chronic Current Visit: No (7) Breast cancer, left Status: Chronic Current Visit: No (8) Coronary artery disease Status: Chronic Current Visit: No (9) Digitalis toxicity Status: Acute Current Visit: Yes (10) Renal insufficiency Status: Acute Current Visit: Yes (11) Dehydration Status: Acute Current Visit: Yes (12) Hypotension Status: Acute Current Visit: Yes (13) Hyperkalemia Status: Acute Current Visit: Yes (14) E. coli UTI Status: Acute Current Visit: Yes Assessment and Plan for All Diagnoses:: 1. Patient's blood pressure has improved and we will start weaning down the pressor medications to see if she is able to sustain the blood pressure on lower doses and potentially discontinue them. 2. Regarding the atrial fibrillation with aberrancy and tachycardia, patient came in on digoxin but was dig toxic. Would add amiodarone to try and control patient's heart rate. 3. Antibiotics to continue as per Dr. Gutiérrez 4. We will repeat IV Lasix x1 due to continued shortness of breath and tachycardia along with edema on exam 5. Discussed with Dr. Goldstein.
[2019-07-07 06:19] LABS: Basophils # 0.2 K/mm3 (0-0.2); Basophils % 0.7 % (0.1-2.0); Eosinophils # 0.1 K/mm3 (0.0-0.4); Eosinophils % 0.2 % (0.1-12.0); Hematocrit 36.8 % (37.0-47.0); Hemoglobin 11.3 g/dL (12.2-16.2); Lymphocytes # 0.4 K/mm3 (0.7-4.5); Lymphocytes % 1.2 % (10-50); Mean Corpuscular HGB Conc 30.6 g/dL (31.8-35.4); Mean Corpuscular Volume 98.7 fl (81-99); Mean Platelet Volume 7.7 fl (7.4-10.4); Monocytes # 0.5 K/mm3 (0.1-1.0); Monocytes % 1.6 % (1.7-9.3); Neutrophils # 31.2 K/mm3 (1.8-7.8); Neutrophils % 96.3 % (37.0-80.0); Platelet Count 312 K/mm3 (142-424); Red Blood Count 3.72 M/mm3 (4.20-5.40); Red Cell Distribution Width 13.7 % (11.5-17.5); White Blood Count 32.4 K/mm3 (4.8-10.8)
[2019-07-07 06:53] LABS: Albumin Level 2.3 gm/dL (3.4-5.0); Albumin/Globulin Ratio 0.8 (1.1-1.8); Anion Gap 19.4 mEq/L (5-15); Bilirubin,Total 0.2 mg/dL (0.2-1.0); Total Protein,Serum 5.3 gm/dL (6.4-8.2)
[2019-07-07 07:05] LABS: Lymphocytes % 4 % (10-50); Monocytes % 2 % (2-9); Neutrophils % 94 % (42-76); RBC Morphology Normal; Total Cells Counted 100
[2019-07-07 07:10] LABS: Calcium 6.9 mg/dL (8.5-10.1)
--- NOTE | 2019-07-07 09:04 | Progress Note ---
Internal Medicine - PN: Subj *Date: 07/07/19 *Time: 12:11 Interval history: Meri and daughter are at the bedside. She was hypoxic during the night and a became less responsive but has rallied some this morning. 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 She is also hypothermic this morning and is on a warming blanket. Remains on vasopressin and Levophed to support her blood pressure which has been lower this morning as well. Exam Vital signs and Labs for Last 24 Hours: Temp Pulse Resp BP Pulse Ox 95.1 F L 77 20 104/66 L 94 L 07/07/19 09:00 07/07/19 07:00 07/07/19 07:00 07/07/19 07:00 07/07/19 07:19 Laboratory Results - last 24 hr 07/06/19 05:40: POC Glucose 251 H 07/06/19 08:54: Creatinine 2.10 H, Estimated Creat Clear 24, Estimated GFR 23 L, Est GFR ( Amer) 28 L, Vancomycin Trough 6.9 L 07/06/19 08:54: Digoxin 1.80 07/06/19 11:20: POC Glucose 170 H 07/06/19 16:59: POC Glucose 246 H 07/06/19 19:59: POC Glucose 222 H 07/07/19 04:01: POC Glucose 233 H 07/07/19 05:25: WBC 32.4 H*, RBC 3.72 L, Hgb 11.3 L, Hct 36.8 L, MCV 98.7, MCH 30.3, MCHC 30.6 L, RDW 13.7, Plt Count 312, MPV 7.7, Neut % (Auto) 96.3 H, Lymph % (Auto) 1.2 L, [place] % (Auto) 1.6 L, Eos % (Auto) 0.2, Baso % (Auto) 0.7, Neut # (Auto) 31.2 H, Lymph # (Auto) 0.4 L, [place] # (Auto) 0.5, Eos # (Auto) 0.1, Baso # (Auto) 0.2, Total Counted 100, Neutrophils % (Manual) 94 H, Lymphocytes % (Manual) 4 L, Monocytes % (Manual) 2, Platelet Estimate Normal, RBC Morphology Normal 07/07/19 05:25: Sodium 128 L, Potassium 4.4, Chloride 97 L, Carbon Dioxide 16 L, Anion Gap 19.4 H, BUN 45 H, Creatinine 1.89 H, Estimated Creat Clear 29, Estima [place] GFR 26 L, Est GFR ( Amer) 31 L, Glucose 259 H, Calcium 6.9 L, Total Bilirubin 0.2, AST 18 D, ALT 15, Alkaline Phosphatase 50, Total Protein 5.3 L, Albumin 2.3 L, Globulin 3.0, Albumin/Globulin Ratio 0.8 L 07/07/19 05:52: POC Glucose 260 H I & O for Last 24 hours: Intake & Output 07/04/19 07/05/19 07/06/19 07/07/19 11:59 11:59 11:59 11:59 Intake Total 7186.653 / 7186.653 6171.655 / 6171.655 5195.288 / 5195.288 Output Total 525 / 525 395 / 395 725 / 725 Balance 6661.653 / 6661.653 5776.655 / 5776.655 4470.288 / 4470.288 Weight 140 lb 142 lb 9 oz 154 lb 8 oz 166 lb 3 oz Microbiology Reports for the Last 24 Hours: Microbiology 07/04/19 11:50 Blood Blood Culture - Preliminary NO GROWTH AFTER 48 HOURS 07/04/19 11:50 Blood Blood Culture - Preliminary NO GROWTH AFTER 48 HOURS 07/04/19 13:30 Urine,Catheterized Urine Culture - Final Escherichia coli Narrative: Appears to be resting comfortably. Respirations are even but shallow with audible rhonchi chest with diminished breath sounds bilaterally. Extremities are cool to touch. Assessment and Plan (1) RLL pneumonia Current visit: Yes Status: Acute Category: Medical Code(s): J18.1 - Lobar pneumonia, unspecified organism (2) Sepsis Current visit: Yes Status: Acute Category: Medical Code(s): A41.9 - Sepsis, unspecified organism (3) Sepsis associated hypotension Current visit: Yes Status: Acute Category: Medical Code(s): A41.9 - Sepsis, unspecified organism; I95.9 - Hypotension, unspecified (4) Congestive heart failure Current visit: Yes Status: Acute Category: Medical Code(s): I50.9 - Heart failure, unspecified (5) Diabetes mellitus, type 2 Current visit: Yes Status: Chronic Category: Medical Code(s): E11.9 - Type 2 diabetes mellitus without complications (6) Atrial fibrillation Current visit: No Status: Chronic Qualifiers: Atrial fibrillation type: chronic Category: Medical Code(s): I48.91 - Unspecified atrial fibrillation (7) Breast cancer, left Current visit: No Status: Chronic Category: Medical Code(s): C50.912 - Malignant neoplasm of unspecified site of left female breast (8) Coronary artery disease Current visit: No Status: Chronic Qualifiers: Coronary Disease-Associated Artery/Lesion type: [place] artery [place] vs. transplanted heart: [place] heart Associated angina: without angina Qualified Code(s): I25.10 - Atherosclerotic heart disease of [place] coronary artery without angina pectoris Category: Medical Code(s): I25.10 - Atherosclerotic heart disease of [place] coronary artery without angina pectoris (9) Digitalis toxicity Current visit: Yes Status: Acute Category: Medical Code(s): T46.0X1A - Poisoning by cardiac-stimulant glycosides and drugs of similar action, accidental (unintentional), initial encounter (10) Renal insufficiency Current visit: Yes Status: Acute Category: Medical Code(s): N28.9 - Disorder of kidney and ureter, unspecified (11) Dehydration Current visit: Yes Status: Acute Category: Medical Code(s): E86.0 - Dehydration (12) Hypotension Current visit: Yes Status: Acute Category: Medical Code(s): I95.9 - Hypotension, unspecified (13) Hyperkalemia Current visit: Yes Status: Acute Category: Medical Code(s): E87.5 - Hyperkalemia (14) E. coli UTI Current visit: Yes Status: Acute Category: Medical Code(s): N39.0 - Urinary tract infection, site not specified; B96.20 - Unspecified Escherichia coli [E. coli] as the cause of diseases classified elsewhere - Assessment and plan all Dx Assessment and Plan for all problems:: Prognosis is poor. She is on maximum doses of 2 pressor agents and is still hypotensive. She is maintaining O2 sats greater than 90%. White count continues to increase. Renal functions are stable. Family is at the bedside and remains hopeful for recovery. CODE STATUS is reviewed and family does not want intubation or CPR.
--- NOTE | 2019-07-07 09:08 | Pharmacy Consult Notes ---
- Pharmacy Consult Date: 07/07/19 Time: 09:07 Referring provider: DR. TAN Reason for Consult:: VANCOMYCIN DOSING Allergies and ADEs:: Allergies Allergy/AdvReac Type Severity Reaction Status Date / Time No Known Allergies Allergy Verified 07/04/19 14:40 Home Medications:: Home Medications Medication Instructions Recorded Confirmed Type Digoxin 0.125 mg PO DAILY 02/05/18 07/05/19 History Enalapril Maleate 2.5 mg PO DAILY 02/05/18 07/05/19 History Ferrous Sulfate [Ferrous Sulfate 325 mg PO DAILY 02/05/18 07/05/19 History 325mg Tablet] Furosemide [Furosemide 40MG tAB] 40 mg PO DAILY 02/05/18 07/05/19 History Gabapentin [Gabapentin 100mg Cap] 200 mg PO TID 02/05/18 07/05/19 History Gluc [place]/MSM/Magnesium/Vit C 1 each PO DAILY 02/05/18 07/05/19 History [Glucosamine Complex-MSM Cap] Lactulose [Lactulose 10gm/15ml 30 ml PO DAILYP PRN 02/05/18 07/05/19 History Oral Soln] Multivit,Iron,Min 5/Folic Acid 1 each PO DAILY 02/05/18 07/05/19 History [Strovite Forte Caplet] Potassium Chloride [Micro-K 10mEq 10 meq PO DAILY 02/05/18 07/05/19 History cap] Sennosides [Senna] 8.6 mg PO BID 02/05/18 07/05/19 History Sodium Chloride [Saline Nasal 1 spray NS Q1HP PRN 02/05/18 07/05/19 History [place]] Tramadol HCl [Ultram 50mg tablet] 50 mg PO TID 02/05/18 07/05/19 History Ubidecarenone [Coenzyme Q10] 100 mg PO DAILY 02/05/18 07/05/19 History risperiDONE [Risperdal 1mg Tablet] 1 mg PO BID 02/05/18 07/05/19 History Anastrozole 1 mg PO DAILY 02/06/18 07/05/19 History Fluticasone Propionate [Flonase 1 spr NS BID 02/06/18 07/05/19 History 50mcg nasal spray 16gm] acetaminophen 500 mg tablet 500 mg PO Q4HP PRN 08/30/18 07/05/19 History pantoprazole 20 mg tablet,delayed 20 mg PO DAILY 08/30/18 07/05/19 History release prednisone 1 mg tablet 1 mg PO DAILY tab 08/30/18 07/05/19 History atorvastatin 20 mg tablet 20 mg PO DAILY 02/28/19 07/05/19 History rivaroxaban 20 mg tablet 20 mg PO DAILY 05/30/19 07/05/19 History Ipratropium/Albuterol Sulfate 3 ml IH TID 07/04/19 07/04/19 History [Duoneb 3mL neb] levoFLOXacin [Levofloxacin 750MG 750 mg PO DAILY 07/04/19 07/05/19 History Tablet] Bisacodyl [Bisacodyl 10mg Supp] 10 mg RC DAILYP PRN 07/05/19 07/05/19 History Calcium Carbonate/Vitamin D3 1 each PO BID 07/05/19 07/05/19 History [Oyster Shell 250 mg + Vit D Tb] Guaifenesin/Dextromethorphan 10 ml PO Q4HP PRN 07/05/19 07/05/19 History [Robafen Dm Cough Liquid] Mag Carb/Aluminum Hydrox/Algin 30 ml PO TIDP PRN 07/05/19 07/05/19 History [Acid Gone Antacid Liquid] Metformin HCl 500 mg PO DAILY 07/05/19 07/05/19 History Na Phos,M-B/Na Phos,Di-Ba [Fleet 1 each RC DAILYP PRN 07/05/19 07/05/19 History Enema 133ml] Phenol [Throat [place]] 1 spray PO Q2HP PRN 07/05/19 07/05/19 History ondansetron HCL [Ondansetron HCl] 4 mg PO Q8HP PRN 07/05/19 07/05/19 History Height: 1.68 m Weight: 75.381 kg Laboratory Results:: Laboratory Results - last 24 hr 07/06/19 08:54: Creatinine 2.10 H, Estimated Creat Clear 24, Estimated GFR 23 L, Est GFR ( Amer) 28 L, Vancomycin Trough 6.9 L 07/06/19 08:54: Digoxin 1.80 07/06/19 11:20: POC Glucose 170 H 07/06/19 16:59: POC Glucose 246 H 07/06/19 19:59: POC Glucose 222 H 07/07/19 04:01: POC Glucose 233 H 07/07/19 05:25: WBC 32.4 H*, RBC 3.72 L, Hgb 11.3 L, Hct 36.8 L, MCV 98.7, MCH 30.3, MCHC 30.6 L, RDW 13.7, Plt Count 312, MPV 7.7, Neut % (Auto) 96.3 H, Lymph % (Auto) 1.2 L, [place] % (Auto) 1.6 L, Eos % (Auto) 0.2, Baso % (Auto) 0.7, Neut # (Auto) 31.2 H, Lymph # (Auto) 0.4 L, [place] # (Auto) 0.5, Eos # (Auto) 0.1, Baso # (Auto) 0.2, Total Counted 100, Neutrophils % (Manual) 94 H, Lymphocytes % (Manual) 4 L, Monocytes % (Manual) 2, Platelet Estimate Normal, RBC Morphology Normal 07/07/19 05:25: Sodium 128 L, Potassium 4.4, Chloride 97 L, Carbon Dioxide 16 L, Anion Gap 19.4 H, BUN 45 H, Creatinine 1.89 H, Estimated Creat Clear 29, Estimated GFR 26 L, Est GFR ( Amer) 31 L, Glucose 259 H, Calcium 6.9 L, Total Bilirubin 0.2, AST 18 D, ALT 15, Alkaline Phosphatase 50, Total Protein 5.3 L, Albumin 2.3 L, Globulin 3.0, Albumin/Globulin Ratio 0.8 L 07/07/19 05:52: POC Glucose 260 H Medical History: Reports:: Aneurysm, Anxiety, Atherosclerotic Heart Disease, Atrial Fibrillation, Cancer, Congestive Heart Failure, Chronic Obstructive Pulmonary Disease (COPD), Coronary Artery Disease, Depression, Diabetes Mellitus Type 2, Gastrointestinal Bleed, Home Oxygen, Hyperlipidemia, Hypertension, Lung Disease, Peripheral Artery Disease Assessment and Plan (1) RLL pneumonia Current visit: Yes Status: Acute Category: Medical Code(s): J18.1 - Lobar pneumonia, unspecified organism (2) Sepsis Current visit: Yes Status: Acute Category: Medical Code(s): A41.9 - Sepsis, unspecified organism (3) Sepsis associated hypotension Current visit: Yes Status: Acute Category: Medical Code(s): A41.9 - Sepsis, unspecified organism; I95.9 - Hypotension, unspecified (4) Congestive heart failure Current visit: Yes Status: Acute Category: Medical Code(s): I50.9 - Heart failure, unspecified (5) Diabetes mellitus, type 2 Current visit: Yes Status: Chronic Category: Medical Code(s): E11.9 - Type 2 diabetes mellitus without complications (6) Atrial fibrillation Current visit: No Status: Chronic Qualifiers: Category: Medical Code(s): I48.91 - Unspecified atrial fibrillation (7) Breast cancer, left Current visit: No Status: Chronic Category: Medical Code(s): C50.912 - Malignant neoplasm of unspecified site of left female breast (8) Coronary artery disease Current visit: No Status: Chronic Qualifiers: Qualified Code(s): I25.10 - Atherosclerotic heart disease of [place] coronary artery without angina pectoris Category: Medical Code(s): I25.10 - Atherosclerotic heart disease of [place] coronary artery without angina pectoris (9) Digitalis toxicity Current visit: Yes Status: Acute Category: Medical Code(s): T46.0X1A - Poisoning by cardiac-stimulant glycosides and drugs of similar action, accidental (unintentional), initial encounter (10) Renal insufficiency Current visit: Yes Status: Acute Category: Medical Code(s): N28.9 - Disorder of kidney and ureter, unspecified (11) Dehydration Current visit: Yes Status: Acute Category: Medical Code(s): E86.0 - Dehydration (12) Hypotension Current visit: Yes Status: Acute Category: Medical Code(s): I95.9 - Hypotension, unspecified (13) Hyperkalemia Current visit: Yes Status: Acute Category: Medical Code(s): E87.5 - Hyperkalemia (14) E. coli UTI Current visit: Yes Status: Acute Category: Medical Code(s): N39.0 - Urinary tract infection, site not specified; B96.20 - Unspecified Escherichia coli [E. coli] as the cause of diseases classified elsewhere - Assessment and plan all Dx Assessment and Plan for all problems:: BASED ON PATIENT FACTORS, RECOMMEND VANCOMYCIN 1250 MG IV Q36H. PHARMACY WILL FOLLOW DAILY AND ADJUST APPROPRIATE.
--- NOTE | 2019-07-07 14:54 | Progress Note ---
Internal Medicine - PN: Subj *Date: 07/07/19 *Time: 14:47 Interval history: The patient is less responsive today. Her blood pressures remain low despite the pressors (80-90 systolic). She is still at full doses on both pressors. Amiodarone has been initiated. Her chest x-ray showed very little change with the right lower lobe pneumonia. Her weight has gone up from edema. She has received several doses of Lasix. Urinary output has been poor. Dr. Negron and Dr. Gutiérrez have both been attending the patient today. There have been conversations with the family. They seem to understand the patient's status. IV fluids are changed at this point to D5 half-normal saline with potassium at 50 cc an hour. Additional Lasix is ordered. Lasix 20 mg grams IV twice daily is also ordered. Frankly, at this point the patient appears moribund. I have suggested that she be DNR. Exam Vital signs and Labs for Last 24 Hours: Temp Pulse Resp BP Pulse Ox 95.0 F L 79 22 106/68 L 92 L 07/07/19 14:19 07/07/19 14:20 07/07/19 10:45 07/07/19 12:00 07/07/19 14:20 Laboratory Results - last 24 hr 07/06/19 16:59: POC Glucose 246 H 07/06/19 19:59: POC Glucose 222 H 07/07/19 04:01: POC Glucose 233 H 07/07/19 05:25: WBC 32.4 H*, RBC 3.72 L, Hgb 11.3 L, Hct 36.8 L, MCV 98.7, MCH 30.3, MCHC 30.6 L, RDW 13.7, Plt Count 312, MPV 7.7, Neut % (Auto) 96.3 H, Lymph % (Auto) 1.2 L, [place] % (Auto) 1.6 L, Eos % (Auto) 0.2, Baso % (Auto) 0.7, Neut # (Auto) 31.2 H, Lymph # (Auto) 0.4 L, [place] # (Auto) 0.5, Eos # (Auto) 0.1, Baso # (Auto) 0.2, Total Counted 100, Neutrophils % (Manual) 94 H, Lymphocytes % (Manual) 4 L, Monocytes % (Manual) 2, Platelet Estimate Normal, RBC Morphology Normal 07/07/19 05:25: Sodium 128 L, Potassium 4.4, Chloride 97 L, Carbon Dioxide 16 L, Anion Gap 19.4 H, BUN 45 H, Creatinine 1.89 H, Estimated Creat Clear 29, Estimated GFR 26 L, Est GFR ( Amer) 31 L, Glucose 259 H, Calcium 6.9 L, Total Bilirubin 0.2, AST 18 D, ALT 15, Alkaline Phosphatase 50, Total Protein 5.3 L, Albumin 2.3 L, Globulin 3.0, Albumin/Globulin Ratio 0.8 L 07/07/19 05:52: POC Glucose 260 H 07/07/19 10:58: POC Glucose 238 H I & O for Last 24 hours: Intake & Output 07/05/19 07/06/19 07/07/19 07/08/19 11:59 11:59 11:59 11:59 Intake Total 7186.653 / 7186.653 6171.655 / 6171.655 5453.288 / 5453.288 Output Total 525 / 525 395 / 395 725 / 725 Balance 6661.653 / 6661.653 5776.655 / 5776.655 4728.288 / 4728.288 Weight 142 lb 9 oz 154 lb 8 oz 166 lb 3 oz Microbiology Reports for the Last 24 Hours: Microbiology 07/04/19 11:50 Blood Blood Culture - Preliminary NO GROWTH AFTER 48 HOURS 07/04/19 11:50 Blood Blood Culture - Preliminary NO GROWTH AFTER 48 HOURS - Constitutional no acute distress (Resting quietly. Respirations are not labored.) - *Routine Neck Exam Present: JVD - *Routine Respiratory Exam Absent: respiratory distress (She is moving air bilaterally.) - *Routine Cardiovascular Exam Present: bradycardia (Irregular rhythm with change in complexes) - *Routine Abdominal Exam Present: soft. Absent: tenderness - *Routine Extremities Exam Present: edema (4+) Assessment and Plan (1) RLL pneumonia Current visit: Yes Status: Acute Category: Medical Code(s): J18.1 - Lobar pneumonia, unspecified organism (2) Sepsis Current visit: Yes Status: Acute Category: Medical Code(s): A41.9 - Sepsis, unspecified organism (3) Sepsis associated hypotension Current visit: Yes Status: Acute Category: Medical Code(s): A41.9 - Sepsis, unspecified organism; I95.9 - Hypotension, unspecified (4) Congestive heart failure Current visit: Yes Status: Acute Category: Medical Code(s): I50.9 - Heart failure, unspecified (5) Diabetes mellitus, type 2 Current visit: Yes Status: Chronic Category: Medical Code(s): E11.9 - Type 2 diabetes mellitus without complications (6) Atrial fibrillation Current visit: No Status: Chronic Qualifiers: Atrial fibrillation type: chronic Category: Medical Code(s): I48.91 - Unspecified atrial fibrillation (7) Breast cancer, left Current visit: No Status: Chronic Category: Medical Code(s): C50.912 - Malignant neoplasm of unspecified site of left female breast (8) Coronary artery disease Current visit: No Status: Chronic Qualifiers: Coronary Disease-Associated Artery/Lesion type: [place] artery [place] vs. transplanted heart: [place] heart Associated angina: without angina Qualified Code(s): I25.10 - Atherosclerotic heart disease of [place] coronary artery without angina pectoris Category: Medical Code(s): I25.10 - Atherosclerotic heart disease of [place] coronary artery without angina pectoris (9) Digitalis toxicity Current visit: Yes Status: Acute Category: Medical Code(s): T46.0X1A - Poisoning by cardiac-stimulant glycosides and drugs of similar action, accidental (unintentional), initial encounter (10) Renal insufficiency Current visit: Yes Status: Acute Category: Medical Code(s): N28.9 - Disorder of kidney and ureter, unspecified (11) Dehydration Current visit: Yes Status: Acute Category: Medical Code(s): E86.0 - Dehydration (12) Hypotension Current visit: Yes Status: Acute Category: Medical Code(s): I95.9 - Hypotension, unspecified (13) Hyperkalemia Current visit: Yes Status: Acute Category: Medical Code(s): E87.5 - Hyperkalemia (14) E. coli UTI Current visit: Yes Status: Acute Category: Medical Code(s): N39.0 - Urinary tract infection, site not specified; B96.20 - Unspecified Escherichia coli [E. coli] as the cause of diseases classified elsewhere - Assessment and plan all Dx Assessment and Plan for all problems:: Changes in orders as noted.
--- NOTE | 2019-07-08 09:50 | Progress Note ---
Internal Medicine - PN: Subj *Date: 07/08/19 *Time: 09:47 Interval history: I was called to this patient's room to evaluate her after she . Patient was admitted several days ago and has been under the care of Dr. Gutiérrez. I went to this patient's room 216 and the patient was unresponsive to verbal and painful stimuli. Patient's pupils were fixed and dilated and nonreactive to light. No corneal reflex OU. Patient did not have a palpable carotid pulse. No breath sounds or heart sounds noted upon auscultating patient. No rise and fall of chest noted. Patient's EKG at 09:44 AM confirmed asystole and no heart activity. Pt . Exam Vital signs and Labs for Last 24 Hours: Temp Pulse Resp BP Pulse Ox 97.6 F 44 L 25 H 48/30 L 74 L 07/08/19 07:50 07/08/19 08:32 07/08/19 08:32 07/08/19 08:32 07/08/19 08:32 Laboratory Results - last 24 hr 07/07/19 10:58: POC Glucose 238 H I & O for Last 24 hours: Intake & Output 07/05/19 07/06/19 07/07/19 07/08/19 23:59 23:59 23:59 23:59 Intake Total 7741.513 / 7741.513 6456.105 / 6456.105 5527.538 / 5527.538 1557.272 / 1557.272 Output Total 545 / 565 605 / 605 270 / 270 Balance 7196.513 / 7176.513 5851.105 / 5851.105 5257.538 / 5257.538 1557.272 / 1557.272 Weight 64.665 kg 70 kg 75.381 kg 75.977 kg Assessment and Plan (1) RLL pneumonia Current visit: Yes Status: Acute Category: Medical Code(s): J18.1 - Lobar pneumonia, unspecified organism (2) Sepsis Current visit: Yes Status: Acute Category: Medical Code(s): A41.9 - Sepsis, unspecified organism (3) Sepsis associated hypotension Current visit: Yes Status: Acute Category: Medical Code(s): A41.9 - Sepsis, unspecified organism; I95.9 - Hypotension, unspecified (4) Congestive heart failure Current visit: Yes Status: Acute Category: Medical Code(s): I50.9 - Heart failure, unspecified (5) Diabetes mellitus, type 2 Current visit: Yes Status: Chronic Category: Medical Code(s): E11.9 - Type 2 diabetes mellitus without complications (6) Atrial fibrillation Current visit: No Status: Chronic Qualifiers: Atrial fibrillation type: chronic Category: Medical Code(s): I48.91 - Unspecified atrial fibrillation (7) Breast cancer, left Current visit: No Status: Chronic Category: Medical Code(s): C50.912 - Malignant neoplasm of unspecified site of left female breast (8) Coronary artery disease Current visit: No Status: Chronic Qualifiers: Coronary Disease-Associated Artery/Lesion type: [place] artery [place] vs. transplanted heart: [place] heart Associated angina: without angina Qualified Code(s): I25.10 - Atherosclerotic heart disease of [place] coronary artery without angina pectoris Category: Medical Code(s): I25.10 - Atherosclerotic heart disease of [place] coronary artery without angina pectoris (9) Digitalis toxicity Current visit: Yes Status: Acute Category: Medical Code(s): T46.0X1A - Poisoning by cardiac-stimulant glycosides and drugs of similar action, accidental (unintentional), initial encounter (10) Renal insufficiency Current visit: Yes Status: Acute Category: Medical Code(s): N28.9 - Disorder of kidney and ureter, unspecified (11) Dehydration Current visit: Yes Status: Acute Category: Medical Code(s): E86.0 - Dehydration (12) Hypotension Current visit: Yes Status: Acute Category: Medical Code(s): I95.9 - Hypotension, unspecified (13) Hyperkalemia Current visit: Yes Status: Acute Category: Medical Code(s): E87.5 - Hyperkalemia (14) E. coli UTI Current visit: Yes Status: Acute Category: Medical Code(s): N39.0 - Ur inary tract infection, site not specified; B96.20 - Unspecified Escherichia coli [E. coli] as the cause of diseases classified elsewhere
--- NOTE | 2019-07-10 13:27 | Discharge Summary ---
General - General Admission date:: 07/04/19 Discharge date: 07/08/19 HPI HPI: Ms. Robledo was a 79-year-old female with a history of left breast cancer, agoraphobia, COPD, aortic and bilateral iliac artery aneurysms with repair, coronary artery disease with stenting, and CHF who presented to [facility] with worsening cough and shortness of breath. She had been on Levaquin for 7 days at [facility] along with jose daniel amezquita. She stated she just was unable to get her breath. O2 sats were lower even on oxygen. Her family became concerned when she had not improved and requested that she be brought to the emergency room for evaluation. With the evaluation in the emergency room she was felt to have a right lower lobe pneumonia. CT scan was pending at the time of H&P. O2 sats did improved while in the emergency room. Having failed outpatient treatment she was admitted for further evaluation and ongoing treatment with Zosyn. Also BP had been low with systolic ranging from 75-107. She had received 1000ml fluid boluses x3. Family related that she had not been eating for the last week. She had been taking fluids well though. Hospital Course Hospital Course: The patient's chest x-ray showed a right lower lobe pneumonia and a PICC line in place. The patient was felt to be septic and was given fluid boluses. She was started on Zosyn and DuoNeb's. Her blood pressure continued to remain low and she was started on a Levophed drip. Even on the Levophed drip, her blood pressures remained low. She was also started on a vasopressin drip. Dr. Gutiérrez did an EKG which showed an accelerated junctional rhythm. She still seemed a bit dry despite all of her IV fluids. Vancomycin was initiated along with the Zosyn. Her oxygen saturations did improve into the low 90s. Cardiology was consulted. A repeat chest x-ray on 07/05/2019 showed cardiomegaly with a persistent right- sided pneumonia and a small effusion developing in the left base. She was seen in consultation by cardiology who felt she should be continued on the Levophed and vasopressin drips. They also recommended adding steroids for possible adrenal insufficiency. Her echo showed a preserved left ventricular ejection fraction. They felt she had some component of diastolic dysfunction in the setting of her COPD. She was able to wake up and answer some questions, however she remained very lethargic. Her urine culture came back positive for E. coli which was sensitive to the Zosyn. Her white blood cell count increased, however, she had been started on steroids. She was maxed on her Levophed and vasopressin drips and her pressure had improved slightly. She did begin having some edema, therefore her fluids were decreased from 200mL/hour to 175mL/hr and she was given a dose of Lasix. She was switched from Zosyn to Invanz based on the sensitivities of the E. coli urinary tract infection. She had approximately 300 cc of urine output after she was given the Lasix. Her blood cultures returned showing no growth. Cardiology felt since the patient's blood pressure had improved they would start weaning down the pressor medications to see if she was able to sustain her blood pressure. The patient did go into atrial fib and cardiology recommended trying amiodarone to control the patient's heart rate. They also ordered a repeat IV Lasix dose. She had another chest x-ray on 07/07/2019 which showed gross generalized cardiomegaly and a persistent pneumonic infiltrate in the right lower lobe with a moderate-sized right pleural effusion. The patient did become hypoxic and less responsive during the night of 07/07/2019. She had received an additional 40 mg of Lasix during the night. She became hypothermic and was started on a warming blanket. She remained on vasopressin and Levophed to support her blood pressure, which also decreased. The patient's CODE STATUS was reviewed and the family did not want intubation or CPR. Dr. Gutiérrez and Dr. Negron both had conversations with the family about the grave nature of her situation. She continued to have edema and was given more Lasix. They recommended the patient become a DNR. On 07/08/2019, at 9:44 AM, an EKG confirmed that the patient had asystole and no heart activity. The ER physician was called to her room to evaluate her and found that she had . Remains were released to the home. Objective Vital signs: Temp Pulse Resp BP Pulse Ox 97.6 F 44 L 25 H 48/30 L 74 L 07/08/19 07:50 07/08/19 08:32 07/08/19 08:32 07/08/19 08:32 07/08/19 08:32 Narrative: - Constitutional no acute distress Comments: Conversant - *Routine HEENT Exam Head: Present: normocephalic, atraumatic Eye: Present: PERRL. Absent: conjunctival icterus, scleral injection ENT: Present: mucous membranes moist, oropharynx clear, TM's clear bilaterally - *Routine Neck Exam Present: supple, lymphadenopathy. Absent: carotid bruit - *Routine Respiratory Exam Comments: Bilateral coarse rhonchi throughout with scattered wheezing. Very congested cough - *Routine Cardiovascular Exam Present: RRR - *Routine Abdominal Exam Present: soft, normoactive bowel sounds. Absent: tenderness - *Routine Extremities Exam Present: edema (Trace) - Detailed Breast Exam left Inspection: Present: swelling, peau d'orange Comments: Left breast has decreased in size since her last exam. Fluid is mostly at the end of the breast now and the upper breast is soft. DS: Diagnosis - Discharge Diagnosis (1) RLL pneumonia Status: Acute (2) Sepsis Status: Acute (3) Sepsis associated hypotension Status: Acute (4) Congestive heart failure Status: Acute (5) Diabetes mellitus, type 2 Status: Chronic (6) Atrial fibrillation Status: Chronic (7) Breast cancer, left Status: Chronic (8) Coronary artery disease Status: Chronic (9) Digitalis toxicity Status: Acute (10) Renal insufficiency Status: Acute (11) Dehydration Status: Acute (12) Hypotension Status: Acute (13) Hyperkalemia Status: Acute (14) E. coli UTI Status: Acute Discharge Plan - Patient Discharge Instructions Patient Instructions: Escherichia coli Infection, DI for Heart Failure, DI for Pneumonia -- Adult, DI for Urinary Tract Infection (UTI), Peripherally Inserted Central Catheter, Peripherally Inserted Central Catheter Infections, DI for Sepsis -- Adult - Follow up Plan Follow up with: Peter Gutiérrez MD [Primary Care Provider] - Disposition: Home Medications: Home Medications Medication Instructions Recorded Confirmed Type Digoxin 0.125 mg PO DAILY 02/05/18 07/05/19 History Enalapril Maleate 2.5 mg PO DAILY 02/05/18 07/05/19 History Ferrous Sulfate [Ferrous Sulfate 325 mg PO DAILY 02/05/18 07/05/19 History 325mg Tablet] Furosemide [Furosemide 40MG tAB] 40 mg PO DAILY 02/05/18 07/05/19 History Gabapentin [Gabapentin 100mg Cap] 200 mg PO TID 02/05/18 07/05/19 History Gluc [place]/MSM/Magnesium/Vit C 1 each PO DAILY 02/05/18 07/05/19 History [Glucosamine Complex-MSM Cap] Lactulose [Lactulose 10gm/15ml 30 ml PO DAILYP PRN 02/05/18 07/05/19 History Oral Soln] Multivit,Iron,Min 5/Folic Acid 1 each PO DAILY 02/05/18 07/05/19 History [Strovite Forte Caplet] Potassium Chloride [Micro-K 10mEq 10 meq PO DAILY 02/05/18 07/05/19 History cap] Sennosides [Senna] 8.6 mg PO BID 02/05/18 07/05/19 History Sodium Chloride [Saline Nasal 1 spray NS Q1HP PRN 02/05/18 07/05/19 History [place]] Tramadol HCl [Ultram 50mg tablet] 50 mg PO TID 02/05/18 07/05/19 History Ubidecarenone [Coenzyme Q10] 100 mg PO DAILY 02/05/18 07/05/19 History risperiDONE [Risperdal 1mg Tablet] 1 mg PO BID 02/05/18 07/05/19 History Anastrozole 1 mg PO DAILY 02/06/18 07/05/19 History Fluticasone Propionate [Flonase 1 spr NS BID 02/06/18 07/05/19 History 50mcg nasal spray 16gm] acetaminophen 500 mg tablet 500 mg PO Q4HP PRN 08/30/18 07/05/19 History pantoprazole 20 mg tablet,delayed 20 mg PO DAILY 08/30/18 07/05/19 History release prednisone 1 mg tablet 1 mg PO DAILY tab 08/30/18 07/05/19 History atorvastatin 20 mg tablet 20 mg PO DAILY 02/28/19 07/05/19 History rivaroxaban 20 mg tablet 20 mg PO DAILY 05/30/19 07/05/19 History Ipratropium/Albuterol Sulfate 3 ml IH TID 07/04/19 07/04/19 History [Duoneb 3mL neb] levoFLOXacin [Levofloxacin 750MG 750 mg PO DAILY 07/04/19 07/05/19 History Tablet] Bisacodyl [Bisacodyl 10mg Supp] 10 mg RC DAILYP PRN 07/05/19 07/05/19 History Calcium Carbonate/Vitamin D3 1 each PO BID 07/05/19 07/05/19 History [Oyster Shell 250 mg + Vit D Tb] Guaifenesin/Dextromethorphan 10 ml PO Q4HP PRN 07/05/19 07/05/19 History [Robafen Dm Cough Liquid] Mag Carb/Aluminum Hydrox/Algin 30 ml PO TIDP PRN 07/05/19 07/05/19 History [Acid Gone Antacid Liquid] Metformin HCl 500 mg PO DAILY 07/05/19 07/05/19 History Na Phos,M-B/Na Phos,Di-Ba [Fleet 1 each RC DAILYP PRN 07/05/19 07/05/19 History Enema 133ml] Phenol [Throat [place]] 1 spray PO Q2HP PRN 07/05/19 07/05/19 History ondansetron HCL [Ondansetron HCl] 4 mg PO Q8HP PRN 07/05/19 07/05/19 History Prescriptions/Medication Reconciliation: No Action pantoprazole 20 mg tablet,delayed release 20 mg PO DAILY acetaminophen 500 mg tablet 500 mg PO Q4HP PRN PRN Reason: PAIN rivaroxaban 20 mg tablet 20 mg PO DAILY prednisone 1 mg tablet 1 mg PO DAILY tab atorvastatin 20 mg tablet 20 mg PO DAILY Digoxin 0.125 mg PO DAILY Lactulose [Lactulose 10gm/15ml Oral Soln] 30 ml PO DAILYP PRN PRN Reason: BOWEL CARE Potassium Chloride [Micro-K 10mEq cap] 10 meq PO DAILY Furosemide [Furosemide 40MG tAB] 40 mg PO DAILY Ubidecarenone [Coenzyme Q10] 100 mg PO DAILY Sennosides [Senna] 8.6 mg PO BID risperiDONE [Risperdal 1mg Tablet] 1 mg PO BID Gabapentin [Gabapentin 100mg Cap] 200 mg PO TID Enalapril Maleate 2.5 mg PO DAILY Tramadol HCl [Ultram 50mg tablet] 50 mg PO TID Gluc [place]/MSM/Magnesium/Vit C [Glucosamine Complex-MSM Cap] 1 each PO DAILY Sodium Chloride [Saline Nasal [place]] 1 spray NS Q1HP PRN PRN Reason: Congestion Bisacodyl [Bisacodyl 10mg Supp] 10 mg RC DAILYP PRN PRN Reason: Constipation Guaifenesin/Dextromethorphan [Robafen Dm Cough Liquid] 10 ml PO Q4HP PRN PRN Reason: Cough Na Phos,M-B/Na Phos,Di-Ba [Fleet Enema 133ml] 1 each RC DAILYP PRN PRN Reason: Constipation Ferrous Sulfate [Ferrous Sulfate 325mg Tablet] 325 mg PO DAILY Multivit,Iron,Min 5/Folic Acid [Strovite Forte Caplet] 1 each PO DAILY Fluticasone Propionate [Flonase 50mcg nasal spray 16gm] 1 spr NS BID Anastrozole 1 mg PO DAILY Ipratropium/Albuterol Sulfate [Duoneb 3mL neb] 3 ml IH TID levoFLOXacin [Levofloxacin 750MG Tablet] 750 mg PO DAILY Calcium Carbonate/Vitamin D3 [[place] 250 mg + Vit D Tb] 1 each PO BID Mag Carb/Aluminum Hydrox/Algin [Acid Gone Antacid Liquid] 30 ml PO TIDP PRN PRN Reason: UPSET STOMACH Metformin HCl 500 mg PO DAILY ondansetron HCL [Ondansetron HCl] 4 mg PO Q8HP PRN PRN Reason: Nausea Phenol [Throat [place]] 1 spray PO Q2HP PRN PRN Reason: Sore Throat - Problem Reconciliation Problems Reviewed?: Yes
== END 2019-07-08 11:40 | disposition expired | DRG 871 ==
LOC: ER 11:44 → 2ND 13:30
PROVIDERS: ADMIT Family Medicine; ATTEND Family Medicine
CPT/HCPCS: 36415; 36569; 71010; 71045; 71250; 80048; 80053; 80061; 80162; 80202; 81001; 82565; 82962; 83605; 83735; 83880; 84100; 84443; 84484; 85007; 85025; 85610; 85730; 87040; 87086; 87088; 87186; 93005; 94640; 94761; 96365; 96367; 96375; 99285; C1751; J0282; J1335; J2405; J2543; J3370; J7060